=== PATIENT | male | born 1930 | race Caucasian/White ===

== ENCOUNTER 2016-07-17 | Outpatient (CLI) | payer MEDICARE, OTHER | END 2016-07-17 22:19 | disposition critical access hospital (66) | CPT/HCPCS: A0425; A0427 ==

== ENCOUNTER 2016-07-17 22:50 | Emergency (ER) | payer MEDICARE, OTHER ==
[2016-07-18] MEDS ORDERED: oxyCODONE 5 MG TABLET PO STA (03:17)
[2016-07-18] MEDS ORDERED: oxyCODONE 5 MG TABLET ONE (03:29)
[2016-07-18] MEDS ORDERED: cefTRIAXone 1 GM in SODIUM CHLORIDE 0.9% MINIBAG 100 ML IV STA (04:36)
[2016-07-18] MEDS ORDERED: cefTRIAXone 1 GM VIAL ONE (04:43)
== END 2016-07-18 05:43 | disposition home or self-care (01) ==
DX: R41.82 Altered mental status, unspecified (principal); R31.9 Hematuria, unspecified; Z93.2 Ileostomy status
CPT/HCPCS: 36415; 80053; 81001; 83605; 83690; 85025; 87086; 96374; 99284; A9270

== ENCOUNTER 2016-07-18 | Outpatient (CLI) | payer MEDICARE, OTHER | END 2016-07-18 05:49 | disposition home or self-care (01) | CPT/HCPCS: A0425; A0428 ==

== ENCOUNTER 2016-08-03 11:30 | Outpatient (CLI) | payer MEDICARE, OTHER | END 2016-08-03 11:31 | disposition home or self-care (01) | DX: N39.0 Urinary tract infection, site not specified (principal); R35.0 Frequency of micturition ==

== ENCOUNTER 2016-08-04 | Outpatient (CLI) | payer MEDICARE, OTHER | END 2016-08-04 21:06 | disposition critical access hospital (66) | CPT/HCPCS: A0425; A0429 ==

== ENCOUNTER 2016-08-04 22:06 | Inpatient (IN) | payer MEDICARE, OTHER ==
[2016-08-04] MEDS ORDERED: SODIUM CHLORIDE 0.9% 1,000 ML IV ONE (23:04)
[2016-08-05] MEDS ORDERED: LIDOCAINE 2% URO-JET 5 ML SYRINGE UR STA (00:13)
[2016-08-05] MEDS ORDERED: LIDOCAINE JELLY 2% 5 ML TUBE TOP ONE (00:31)
[2016-08-05] MEDS ORDERED: LIDOCAINE JELLY 2% 5 ML TUBE TOP STA (00:36)
[2016-08-05] MEDS ORDERED: ONDANSETRON 4 MG/2 ML VIAL IVP PRN (01:46)
[2016-08-05] MEDS ORDERED: SODIUM CHLORIDE FLUSH 0.9% 10 ML SYRINGE IVP PRN (01:46)
[2016-08-05] MEDS ORDERED: DEXTROSE GEL 37.5 GM TUBE PO PRN (02:40)
[2016-08-05] MEDS ORDERED: DEXTROSE 5% 1,000 ML IV PRN (02:40)
[2016-08-05] MEDS ORDERED: GLUCAGON 1 MG/ML VIAL SUBQ PRN (02:40)
[2016-08-05] MEDS ORDERED: DEXTROSE 50% ABBOJECT 25 GM/50 ML SYRINGE IVP PRN (02:40)
[2016-08-05] MEDS: SODIUM CHLORIDE 0.9% 1,000 ML IV SCH ×2 (03:00→14:23)
[2016-08-05] MEDS: SODIUM CHLORIDE FLUSH 0.9% 10 ML SYRINGE IVP SCH ×3 (03:00→21:13)
[2016-08-05] MEDS ORDERED: ASPIRIN EC 81 MG TABLET PO SCH (09:00)
[2016-08-05] MEDS: INSULIN ASPART 300 UNIT/3 ML PEN SUBQ SCH ×4 (09:48→20:33)
[2016-08-05] MEDS: CLOPIDOGREL 75 MG TABLET PO SCH (09:50)
[2016-08-05] MEDS: ATORVASTATIN 10 MG TABLET PO SCH (09:50)
[2016-08-05] MEDS: SACCHAROMYCES BOULARDII 250 MG CAPSULE PO SCH ×2 (09:50→17:09)
[2016-08-05] MEDS: ASPIRIN EC 81 MG TABLET PO SCH (09:50)
[2016-08-05] MEDS: AMIODARONE 200 MG TABLET PO SCH (09:51)
[2016-08-05] MEDS: FERROUS SULFATE 325 MG TABLET PO SCH ×2 (09:51→20:34)
[2016-08-05] MEDS: SODIUM BICARBONATE 650 MG TABLET PO SCH ×2 (09:51→20:34)
[2016-08-05] MEDS: METOPROLOL SUCCINATE 25 MG TABLET PO SCH (09:51)
[2016-08-05] MEDS: ALLOPURINOL 100 MG TABLET PO SCH (09:52)
[2016-08-05] MEDS: POLYETHYLENE GLYCOL 3350 17 GM PACKET PO SCH (09:53)
[2016-08-05] MEDS: LIDOCAINE PATCH 5% TOP SCH (09:53)
[2016-08-05] MEDS: NYSTATIN CREAM 15 GM TUBE TOP SCH ×2 (09:54→20:32)
[2016-08-05] MEDS: HEPARIN 5,000 UNIT/ML VIAL SUBQ SCH ×2 (09:55→20:39)
[2016-08-05] MEDS: FLUTICASONE NASAL SPRAY NAS SCH (10:06)
[2016-08-05] MEDS: HYDROcod/ACETAM 5/325 MG TABLET PO PRN (18:18)
[2016-08-06] MEDS: HYDROcod/ACETAM 5/325 MG TABLET PO PRN ×4 (00:24→19:20)
[2016-08-06] MEDS: SODIUM CHLORIDE FLUSH 0.9% 10 ML SYRINGE IVP SCH ×3 (06:19→22:22)
[2016-08-06] MEDS: INSULIN ASPART 300 UNIT/3 ML PEN SUBQ SCH ×4 (08:20→22:14)
[2016-08-06] MEDS: POLYETHYLENE GLYCOL 3350 17 GM PACKET PO SCH (09:36)
[2016-08-06] MEDS: SACCHAROMYCES BOULARDII 250 MG CAPSULE PO SCH ×2 (09:37→17:13)
[2016-08-06] MEDS: ATORVASTATIN 10 MG TABLET PO SCH (09:37)
[2016-08-06] MEDS: ASPIRIN EC 81 MG TABLET PO SCH (09:37)
[2016-08-06] MEDS: FERROUS SULFATE 325 MG TABLET PO SCH ×2 (09:38→22:16)
[2016-08-06] MEDS: AMIODARONE 200 MG TABLET PO SCH (09:38)
[2016-08-06] MEDS: SODIUM BICARBONATE 650 MG TABLET PO SCH ×2 (09:39→22:15)
[2016-08-06] MEDS: CLOPIDOGREL 75 MG TABLET PO SCH (09:39)
[2016-08-06] MEDS: METOPROLOL SUCCINATE 25 MG TABLET PO SCH (09:39)
[2016-08-06] MEDS: ALLOPURINOL 100 MG TABLET PO SCH (09:39)
[2016-08-06] MEDS: HEPARIN 5,000 UNIT/ML VIAL SUBQ SCH ×2 (09:40→22:23)
[2016-08-06] MEDS: LIDOCAINE PATCH 5% TOP SCH (10:10)
[2016-08-06] MEDS: NYSTATIN CREAM 15 GM TUBE TOP SCH ×2 (12:03→22:16)
[2016-08-06] MEDS: FLUTICASONE NASAL SPRAY NAS SCH (12:04)
[2016-08-07] MEDS: HYDROcod/ACETAM 5/325 MG TABLET PO PRN ×3 (01:40→13:32)
[2016-08-07] MEDS: SODIUM CHLORIDE FLUSH 0.9% 10 ML SYRINGE IVP SCH ×3 (01:41→21:21)
[2016-08-07] MEDS ORDERED: MAGNESIUM SULFATE 2 GRAM 50 ML IV ONE (09:00)
[2016-08-07] MEDS: INSULIN ASPART 300 UNIT/3 ML PEN SUBQ SCH ×4 (09:29→21:18)
[2016-08-07] MEDS: NYSTATIN CREAM 15 GM TUBE TOP SCH ×2 (09:30→21:16)
[2016-08-07] MEDS: LIDOCAINE PATCH 5% TOP SCH (09:31)
[2016-08-07] MEDS: FLUTICASONE NASAL SPRAY NAS SCH (09:31)
[2016-08-07] MEDS: HEPARIN 5,000 UNIT/ML VIAL SUBQ SCH ×2 (09:31→21:18)
[2016-08-07] MEDS: AMIODARONE 200 MG TABLET PO SCH (09:31)
[2016-08-07] MEDS: SACCHAROMYCES BOULARDII 250 MG CAPSULE PO SCH ×2 (09:31→18:02)
[2016-08-07] MEDS: ASPIRIN EC 81 MG TABLET PO SCH (09:32)
[2016-08-07] MEDS: METOPROLOL SUCCINATE 25 MG TABLET PO SCH (09:32)
[2016-08-07] MEDS: FERROUS SULFATE 325 MG TABLET PO SCH ×2 (09:32→21:16)
[2016-08-07] MEDS: ALLOPURINOL 100 MG TABLET PO SCH (09:32)
[2016-08-07] MEDS: CLOPIDOGREL 75 MG TABLET PO SCH (09:32)
[2016-08-07] MEDS: ATORVASTATIN 10 MG TABLET PO SCH (09:34)
[2016-08-07] MEDS: POLYETHYLENE GLYCOL 3350 17 GM PACKET PO SCH (09:34)
[2016-08-07] MEDS: SODIUM BICARBONATE 650 MG TABLET PO SCH ×2 (09:43→21:16)
[2016-08-07] MEDS: oxyCODONE 5 MG TABLET PO PRN ×2 (18:02→23:42)
[2016-08-07] MEDS: TAMSULOSIN 0.4 MG CAPSULE PO SCH (18:02)
[2016-08-08] MEDS: SODIUM CHLORIDE FLUSH 0.9% 10 ML SYRINGE IVP SCH ×3 (06:12→21:52)
[2016-08-08] MEDS: oxyCODONE 5 MG TABLET PO PRN ×2 (07:07→14:23)
[2016-08-08] MEDS ORDERED: SODIUM CHLORIDE 0.9% 500 ML IV ONE ×2 (07:48→10:00)
[2016-08-08] MEDS: INSULIN ASPART 300 UNIT/3 ML PEN SUBQ SCH ×4 (08:33→21:57)
[2016-08-08] MEDS: SACCHAROMYCES BOULARDII 250 MG CAPSULE PO SCH ×2 (08:34→18:00)
[2016-08-08] MEDS: ALLOPURINOL 100 MG TABLET PO SCH (08:34)
[2016-08-08] MEDS: ASPIRIN EC 81 MG TABLET PO SCH (08:35)
[2016-08-08] MEDS: ATORVASTATIN 10 MG TABLET PO SCH (08:35)
[2016-08-08] MEDS: AMIODARONE 200 MG TABLET PO SCH (08:35)
[2016-08-08] MEDS: levoFLOXacin 250 MG TABLET PO SCH (08:36)
[2016-08-08] MEDS: NYSTATIN CREAM 15 GM TUBE TOP SCH ×2 (08:36→21:52)
[2016-08-08] MEDS: FERROUS SULFATE 325 MG TABLET PO SCH ×2 (08:36→21:52)
[2016-08-08] MEDS: CLOPIDOGREL 75 MG TABLET PO SCH (08:36)
[2016-08-08] MEDS: FLUTICASONE NASAL SPRAY NAS SCH (08:36)
[2016-08-08] MEDS: POLYETHYLENE GLYCOL 3350 17 GM PACKET PO SCH (08:37)
[2016-08-08] MEDS: SODIUM BICARBONATE 650 MG TABLET PO SCH ×2 (08:38→21:52)
[2016-08-08] MEDS: METOPROLOL SUCCINATE 25 MG TABLET PO SCH (08:42)
[2016-08-08] MEDS: ACETAMINOPHEN 325 MG TABLET PO PRN (08:43)
[2016-08-08] MEDS: HEPARIN 5,000 UNIT/ML VIAL SUBQ SCH ×2 (08:49→21:53)
[2016-08-08] MEDS: LIDOCAINE PATCH 5% TOP SCH (09:08)
[2016-08-08] MEDS: TAMSULOSIN 0.4 MG CAPSULE PO SCH (18:00)
[2016-08-09] MEDS: guaiFENesin 600 MG TABLET PO PRN ×2 (00:08→13:31)
[2016-08-09] MEDS: oxyCODONE 5 MG TABLET PO PRN ×4 (00:08→19:16)
[2016-08-09] MEDS ORDERED: LORazepam 2 MG/ML SYRINGE IVP STA (01:13)
[2016-08-09] MEDS: SODIUM CHLORIDE FLUSH 0.9% 10 ML SYRINGE IVP SCH ×3 (01:21→20:49)
[2016-08-09] MEDS: INSULIN ASPART 300 UNIT/3 ML PEN SUBQ SCH ×4 (08:00→20:57)
[2016-08-09] MEDS ORDERED: HALOPERIDOL 5 MG/ML VIAL IM ONE (09:00)
[2016-08-09] MEDS: MORPHINE 2 MG/ML SYRINGE IVP PRN ×3 (11:17→17:55)
[2016-08-09] MEDS: ALLOPURINOL 100 MG TABLET PO SCH (13:26)
[2016-08-09] MEDS: SACCHAROMYCES BOULARDII 250 MG CAPSULE PO SCH ×2 (13:26→18:03)
[2016-08-09] MEDS: CLOPIDOGREL 75 MG TABLET PO SCH (13:28)
[2016-08-09] MEDS: ASPIRIN EC 81 MG TABLET PO SCH (13:28)
[2016-08-09] MEDS: AMIODARONE 200 MG TABLET PO SCH (13:28)
[2016-08-09] MEDS: POLYETHYLENE GLYCOL 3350 17 GM PACKET PO SCH (13:29)
[2016-08-09] MEDS: LIDOCAINE PATCH 5% TOP SCH (13:29)
[2016-08-09] MEDS: levoFLOXacin 250 MG TABLET PO SCH (13:29)
[2016-08-09] MEDS: SODIUM BICARBONATE 650 MG TABLET PO SCH ×2 (13:29→20:51)
[2016-08-09] MEDS: FERROUS SULFATE 325 MG TABLET PO SCH ×2 (13:30→20:51)
[2016-08-09] MEDS: ATORVASTATIN 40 MG TABLET PO SCH (13:31)
[2016-08-09] MEDS: FLUTICASONE NASAL SPRAY NAS SCH (13:34)
[2016-08-09] MEDS: NYSTATIN CREAM 15 GM TUBE TOP SCH ×2 (13:35→21:13)
[2016-08-09] MEDS: METOPROLOL SUCCINATE 25 MG TABLET PO SCH (13:56)
[2016-08-09] MEDS: HEPARIN 5,000 UNIT/ML VIAL SUBQ SCH ×2 (14:51→20:49)
[2016-08-09] MEDS: TAMSULOSIN 0.4 MG CAPSULE PO SCH (17:55)
[2016-08-09] MEDS: SODIUM CHLORIDE FLUSH 0.9% 10 ML SYRINGE IVP PRN (17:56)
[2016-08-09] MEDS: ACETAMINOPHEN 325 MG TABLET PO PRN (19:15)
[2016-08-10] MEDS: LORazepam 0.5 MG TABLET PO PRN ×2 (00:17→20:32)
[2016-08-10] MEDS: MORPHINE 2 MG/ML SYRINGE IVP PRN ×4 (00:17→22:23)
[2016-08-10] MEDS: SODIUM CHLORIDE FLUSH 0.9% 10 ML SYRINGE IVP SCH ×3 (04:53→21:42)
[2016-08-10] MEDS: SODIUM CHLORIDE FLUSH 0.9% 10 ML SYRINGE IVP PRN (05:36)
[2016-08-10] MEDS: INSULIN ASPART 300 UNIT/3 ML PEN SUBQ SCH ×4 (09:05→21:42)
[2016-08-10] MEDS: SACCHAROMYCES BOULARDII 250 MG CAPSULE PO SCH ×2 (09:49→17:08)
[2016-08-10] MEDS: AMIODARONE 200 MG TABLET PO SCH (09:51)
[2016-08-10] MEDS: levoFLOXacin 250 MG TABLET PO SCH (09:52)
[2016-08-10] MEDS: ATORVASTATIN 40 MG TABLET PO SCH (09:52)
[2016-08-10] MEDS: CLOPIDOGREL 75 MG TABLET PO SCH (09:52)
[2016-08-10] MEDS: SODIUM BICARBONATE 650 MG TABLET PO SCH ×2 (09:52→20:32)
[2016-08-10] MEDS: ALLOPURINOL 100 MG TABLET PO SCH (09:52)
[2016-08-10] MEDS: ASPIRIN EC 81 MG TABLET PO SCH (09:52)
[2016-08-10] MEDS: METOPROLOL SUCCINATE 25 MG TABLET PO SCH (09:53)
[2016-08-10] MEDS: FLUTICASONE NASAL SPRAY NAS SCH (10:26)
[2016-08-10] MEDS: HEPARIN 5,000 UNIT/ML VIAL SUBQ SCH ×2 (10:26→20:33)
[2016-08-10] MEDS: POLYETHYLENE GLYCOL 3350 17 GM PACKET PO SCH (10:27)
[2016-08-10] MEDS: FERROUS SULFATE 325 MG TABLET PO SCH ×2 (11:50→20:32)
[2016-08-10] MEDS: LIDOCAINE PATCH 5% TOP SCH (11:57)
[2016-08-10] MEDS: NYSTATIN CREAM 15 GM TUBE TOP SCH ×2 (11:58→20:37)
[2016-08-10] MEDS: ACETAMINOPHEN 325 MG TABLET PO PRN (15:50)
[2016-08-10] MEDS: oxyCODONE 5 MG TABLET PO PRN (15:51)
[2016-08-10] MEDS: TAMSULOSIN 0.4 MG CAPSULE PO SCH (17:08)
[2016-08-11] MEDS: oxyCODONE 5 MG TABLET PO PRN ×4 (04:29→18:28)
[2016-08-11] MEDS: SODIUM CHLORIDE FLUSH 0.9% 10 ML SYRINGE IVP PRN ×2 (06:44→16:57)
[2016-08-11] MEDS: SODIUM CHLORIDE FLUSH 0.9% 10 ML SYRINGE IVP SCH ×3 (06:44→23:28)
[2016-08-11] MEDS: SACCHAROMYCES BOULARDII 250 MG CAPSULE PO SCH ×2 (09:28→16:58)
[2016-08-11] MEDS: ATORVASTATIN 40 MG TABLET PO SCH (09:28)
[2016-08-11] MEDS: ALLOPURINOL 100 MG TABLET PO SCH (09:28)
[2016-08-11] MEDS: FERROUS SULFATE 325 MG TABLET PO SCH ×2 (09:28→21:06)
[2016-08-11] MEDS: CLOPIDOGREL 75 MG TABLET PO SCH (09:28)
[2016-08-11] MEDS: levoFLOXacin 250 MG TABLET PO SCH (09:29)
[2016-08-11] MEDS: ASPIRIN EC 81 MG TABLET PO SCH (09:29)
[2016-08-11] MEDS: AMIODARONE 200 MG TABLET PO SCH (09:29)
[2016-08-11] MEDS: METOPROLOL SUCCINATE 25 MG TABLET PO SCH (09:29)
[2016-08-11] MEDS: INSULIN ASPART 300 UNIT/3 ML PEN SUBQ SCH ×4 (09:29→21:04)
[2016-08-11] MEDS: SODIUM BICARBONATE 650 MG TABLET PO SCH ×2 (09:29→21:06)
[2016-08-11] MEDS: LIDOCAINE PATCH 5% TOP SCH (09:30)
[2016-08-11] MEDS: POLYETHYLENE GLYCOL 3350 17 GM PACKET PO SCH (09:31)
[2016-08-11] MEDS: HEPARIN 5,000 UNIT/ML VIAL SUBQ SCH ×2 (09:41→21:05)
[2016-08-11] MEDS: FLUTICASONE NASAL SPRAY NAS SCH (09:41)
[2016-08-11] MEDS: NYSTATIN CREAM 15 GM TUBE TOP SCH ×2 (10:11→23:28)
[2016-08-11] MEDS: MORPHINE 2 MG/ML SYRINGE IVP PRN ×2 (12:09→23:39)
[2016-08-11] MEDS ORDERED: cefTRIAXone 500 MG VIAL IVP STA (16:26)
[2016-08-11] MEDS: SODIUM CHLORIDE 0.9% 1,000 ML IV SCH (16:57)
[2016-08-11] MEDS: cefTRIAXone 1 GM in SODIUM CHLORIDE 0.9% MINIBAG 100 ML IV SCH (16:57)
[2016-08-11] MEDS: TAMSULOSIN 0.4 MG CAPSULE PO SCH (16:58)
[2016-08-11] MEDS ORDERED: VANCOMYCIN PER PHARMACY 1 GM in SODIUM CHLORIDE 0.9% 250 ML IV SCH (17:00)
[2016-08-11] MEDS: VANCOMYCIN INJ 2 GM in SODIUM CHLORIDE 0.9% 500 ML IV SCH (18:29)
[2016-08-11] MEDS: LORazepam 0.5 MG TABLET PO PRN (19:44)
[2016-08-12] MEDS: MORPHINE 2 MG/ML SYRINGE IVP PRN ×3 (04:41→11:59)
[2016-08-12] MEDS: SODIUM CHLORIDE FLUSH 0.9% 10 ML SYRINGE IVP PRN (06:08)
[2016-08-12] MEDS: SODIUM CHLORIDE 0.9% 1,000 ML IV SCH ×2 (06:08→22:56)
[2016-08-12] MEDS: SODIUM CHLORIDE FLUSH 0.9% 10 ML SYRINGE IVP SCH ×3 (06:08→21:04)
[2016-08-12] MEDS: ASPIRIN EC 81 MG TABLET PO SCH (07:49)
[2016-08-12] MEDS: AMIODARONE 200 MG TABLET PO SCH (07:49)
[2016-08-12] MEDS: FERROUS SULFATE 325 MG TABLET PO SCH ×2 (07:49→21:03)
[2016-08-12] MEDS: POLYETHYLENE GLYCOL 3350 17 GM PACKET PO SCH (07:49)
[2016-08-12] MEDS: SODIUM BICARBONATE 650 MG TABLET PO SCH ×2 (07:49→21:03)
[2016-08-12] MEDS: ATORVASTATIN 40 MG TABLET PO SCH (07:49)
[2016-08-12] MEDS: ALLOPURINOL 100 MG TABLET PO SCH (07:50)
[2016-08-12] MEDS: CLOPIDOGREL 75 MG TABLET PO SCH (07:50)
[2016-08-12] MEDS: LIDOCAINE PATCH 5% TOP SCH (07:51)
[2016-08-12] MEDS: HEPARIN 5,000 UNIT/ML VIAL SUBQ SCH ×2 (07:51→21:06)
[2016-08-12] MEDS: METOPROLOL SUCCINATE 25 MG TABLET PO SCH (07:51)
[2016-08-12] MEDS: cefTRIAXone 1 GM in SODIUM CHLORIDE 0.9% MINIBAG 100 ML IV SCH (07:52)
[2016-08-12] MEDS: NYSTATIN CREAM 15 GM TUBE TOP SCH ×2 (07:52→21:06)
[2016-08-12] MEDS: SACCHAROMYCES BOULARDII 250 MG CAPSULE PO SCH ×2 (07:59→17:04)
[2016-08-12] MEDS: INSULIN ASPART 300 UNIT/3 ML PEN SUBQ SCH ×4 (08:19→21:04)
[2016-08-12] MEDS: FLUTICASONE NASAL SPRAY NAS SCH (08:22)
[2016-08-12] MEDS: guaiFENesin 600 MG TABLET PO PRN (12:38)
[2016-08-12] MEDS: SILVER SULFADIAZINE CREAM 25 GM TUBE TOP SCH (14:49)
[2016-08-12] MEDS: TAMSULOSIN 0.4 MG CAPSULE PO SCH (17:04)
[2016-08-12] MEDS: VANCOMYCIN INJ 2 GM in SODIUM CHLORIDE 0.9% 500 ML IV SCH (18:03)
[2016-08-13] MEDS: oxyCODONE 5 MG TABLET PO PRN ×3 (00:01→20:20)
[2016-08-13] MEDS: LORazepam 0.5 MG TABLET PO PRN (03:41)
[2016-08-13] MEDS: SODIUM CHLORIDE FLUSH 0.9% 10 ML SYRINGE IVP PRN ×2 (06:47→17:56)
[2016-08-13] MEDS: SODIUM CHLORIDE FLUSH 0.9% 10 ML SYRINGE IVP SCH ×4 (08:34→17:56)
[2016-08-13] MEDS: INSULIN ASPART 300 UNIT/3 ML PEN SUBQ SCH ×4 (08:34→21:08)
[2016-08-13] MEDS: AMIODARONE 200 MG TABLET PO SCH (08:55)
[2016-08-13] MEDS: cefTRIAXone 1 GM in SODIUM CHLORIDE 0.9% MINIBAG 100 ML IV SCH (08:55)
[2016-08-13] MEDS: HEPARIN 5,000 UNIT/ML VIAL SUBQ SCH ×2 (08:55→21:02)
[2016-08-13] MEDS: METOPROLOL SUCCINATE 25 MG TABLET PO SCH (08:55)
[2016-08-13] MEDS: POLYETHYLENE GLYCOL 3350 17 GM PACKET PO SCH (08:55)
[2016-08-13] MEDS: FERROUS SULFATE 325 MG TABLET PO SCH ×2 (08:55→21:02)
[2016-08-13] MEDS: SACCHAROMYCES BOULARDII 250 MG CAPSULE PO SCH ×2 (08:56→17:55)
[2016-08-13] MEDS: ALLOPURINOL 100 MG TABLET PO SCH ×2 (08:56→09:13)
[2016-08-13] MEDS: SODIUM BICARBONATE 650 MG TABLET PO SCH ×2 (08:56→21:02)
[2016-08-13] MEDS: CLOPIDOGREL 75 MG TABLET PO SCH (08:56)
[2016-08-13] MEDS: ASPIRIN EC 81 MG TABLET PO SCH (08:56)
[2016-08-13] MEDS: ATORVASTATIN 40 MG TABLET PO SCH (08:56)
[2016-08-13] MEDS: LIDOCAINE PATCH 5% TOP SCH (09:04)
[2016-08-13] MEDS: FLUTICASONE NASAL SPRAY NAS SCH (09:04)
[2016-08-13] MEDS: SODIUM CHLORIDE 0.9% 1,000 ML IV SCH ×2 (10:53→22:56)
[2016-08-13] MEDS: SILVER SULFADIAZINE CREAM 25 GM TUBE TOP SCH ×2 (10:53→22:55)
[2016-08-13] MEDS: NYSTATIN CREAM 15 GM TUBE TOP SCH ×2 (10:55→22:56)
[2016-08-13] MEDS ORDERED: SODIUM BICARBONATE 100 MEQ in DEXTROSE 5% 1,000 ML IV SCH (15:30)
[2016-08-13] MEDS: guaiFENesin 600 MG TABLET PO PRN (15:59)
[2016-08-13] MEDS: MORPHINE 2 MG/ML SYRINGE IVP PRN (17:56)
[2016-08-13] MEDS: TAMSULOSIN 0.4 MG CAPSULE PO SCH (17:56)
[2016-08-13] MEDS: MAGNESIUM OXIDE 400 MG TABLET PO SCH (17:56)
[2016-08-14] MEDS: LORazepam 0.5 MG TABLET PO PRN (03:07)
[2016-08-14] MEDS: SILVER SULFADIAZINE CREAM 25 GM TUBE TOP SCH (08:28)
[2016-08-14] MEDS: cefTRIAXone 1 GM in SODIUM CHLORIDE 0.9% MINIBAG 100 ML IV SCH (08:28)
[2016-08-14] MEDS: POLYETHYLENE GLYCOL 3350 17 GM PACKET PO SCH (08:28)
[2016-08-14] MEDS: FLUTICASONE NASAL SPRAY NAS SCH (08:28)
[2016-08-14] MEDS: FERROUS SULFATE 325 MG TABLET PO SCH (08:29)
[2016-08-14] MEDS: LIDOCAINE PATCH 5% TOP SCH (08:29)
[2016-08-14] MEDS: ALLOPURINOL 100 MG TABLET PO SCH (08:29)
[2016-08-14] MEDS: MAGNESIUM OXIDE 400 MG TABLET PO SCH (08:29)
[2016-08-14] MEDS: AMIODARONE 200 MG TABLET PO SCH (08:30)
[2016-08-14] MEDS: ATORVASTATIN 40 MG TABLET PO SCH (08:30)
[2016-08-14] MEDS: SACCHAROMYCES BOULARDII 250 MG CAPSULE PO SCH (08:30)
[2016-08-14] MEDS: SODIUM BICARBONATE 650 MG TABLET PO SCH (08:30)
[2016-08-14] MEDS: ASPIRIN EC 81 MG TABLET PO SCH (08:30)
[2016-08-14] MEDS: HEPARIN 5,000 UNIT/ML VIAL SUBQ SCH (08:30)
[2016-08-14] MEDS: CLOPIDOGREL 75 MG TABLET PO SCH (08:30)
[2016-08-14] MEDS: METOPROLOL SUCCINATE 25 MG TABLET PO SCH (08:30)
[2016-08-14] MEDS ORDERED: VANCOMYCIN INJ 2 GM in SODIUM CHLORIDE 0.9% 500 ML IV SCH (18:00)
== END 2016-08-14 11:20 | disposition home health service (06) | DRG 689 ==
PROC: 02HV33Z Insertion of Infusion Device into Superior Vena Cava, Percutaneous Approach (ICD-10-PCS; principal; 2016-08-09)
PROC: 30233N1 Transfusion of Nonautologous Red Blood Cells into Peripheral Vein, Percutaneous Approach (ICD-10-PCS; 2016-08-14)
DX: N39.0 Urinary tract infection, site not specified (principal); S41.132A Puncture wound without foreign body of left upper arm, initial encounter; B37.41 Candidal cystitis and urethritis; G93.41 Metabolic encephalopathy; S00.432A Contusion of left ear, initial encounter; L89.623 Pressure ulcer of left heel, stage 3; M86.672 Other chronic osteomyelitis, left ankle and foot; L97.221 Non-pressure chronic ulcer of left calf limited to breakdown of skin; L97.829 Non-pressure chronic ulcer of other part of left lower leg with unspecified severity; N18.4 Chronic kidney disease, stage 4 (severe); I69.354 Hemiplegia and hemiparesis following cerebral infarction affecting left non-dominant side; K50.00 Crohn's disease of small intestine without complications; E87.2 Acidosis; Z68.41 Body mass index [BMI] 40.0-44.9, adult; D63.8 Anemia in other chronic diseases classified elsewhere; D50.0 Iron deficiency anemia secondary to blood loss (chronic); R31.9 Hematuria, unspecified; E83.52 Hypercalcemia; I73.9 Peripheral vascular disease, unspecified; E11.40 Type 2 diabetes mellitus with diabetic neuropathy, unspecified; E11.69 Type 2 diabetes mellitus with other specified complication; E11.622 Type 2 diabetes mellitus with other skin ulcer; E11.22 Type 2 diabetes mellitus with diabetic chronic kidney disease; E66.9 Obesity, unspecified; N40.1 Benign prostatic hyperplasia with lower urinary tract symptoms; R33.8 Other retention of urine; I48.2 Chronic atrial fibrillation; S61.532A Puncture wound without foreign body of left wrist, initial encounter; S80.02XA Contusion of left knee, initial encounter; S80.01XA Contusion of right knee, initial encounter; W06.XXXA Fall from bed, initial encounter; Y92.003 Bedroom of unspecified non-institutional (private) residence as the place of occurrence of the external cause; I25.10 Atherosclerotic heart disease of native coronary artery without angina pectoris; I69.311 Memory deficit following cerebral infarction; I69.328 Other speech and language deficits following cerebral infarction; I25.2 Old myocardial infarction; Z78.1 Physical restraint status; Z93.2 Ileostomy status; Z79.02 Long term (current) use of antithrombotics/antiplatelets; Z95.828 Presence of other vascular implants and grafts; Z87.442 Personal history of urinary calculi; Z74.01 Bed confinement status

== ENCOUNTER 2016-08-14 | Outpatient (CLI) | payer MEDICARE, OTHER | END 2016-08-14 11:20 | disposition home or self-care (01) | CPT/HCPCS: A0425; A0428 ==

== ENCOUNTER 2016-10-04 15:29 | Outpatient (CLI) | payer MEDICARE, OTHER | END 2016-10-04 15:30 | disposition critical access hospital (66) | DX: R39.89 Other symptoms and signs involving the genitourinary system (principal) | CPT/HCPCS: A0425; A0429 ==

== ENCOUNTER 2016-10-04 16:07 | Emergency (ER) | payer MEDICARE, OTHER ==
[2016-10-04] MEDS ORDERED: cefTRIAXone 1 GM VIAL IM STA (18:47)
[2016-10-04] MEDS ORDERED: cefTRIAXone 1 GM VIAL ONE (19:01)
[2016-10-04] MEDS ORDERED: LIDOCAINE 1% 2 ML VIAL ONE (19:01)
== END 2016-10-04 21:17 | disposition home or self-care (01) ==
DX: N30.00 Acute cystitis without hematuria (principal); I10 Essential (primary) hypertension; E78.00 Pure hypercholesterolemia, unspecified; I25.2 Old myocardial infarction; Z86.73 Personal history of transient ischemic attack (TIA), and cerebral infarction without residual deficits; K50.90 Crohn's disease, unspecified, without complications; I25.10 Atherosclerotic heart disease of native coronary artery without angina pectoris; Z95.1 Presence of aortocoronary bypass graft; Z79.82 Long term (current) use of aspirin; Z87.891 Personal history of nicotine dependence

== ENCOUNTER 2016-10-04 21:17 | Outpatient (CLI) | payer MEDICARE, OTHER | END 2016-10-04 21:18 | disposition home or self-care (01) | DX: Z74.01 Bed confinement status (principal) | CPT/HCPCS: A0425; A0428 ==

== ENCOUNTER 2016-10-15 13:00 | Outpatient (CLI) | payer MEDICARE, OTHER | END 2016-10-15 13:01 | disposition home or self-care (01) | DX: N39.0 Urinary tract infection, site not specified (principal) ==

== ENCOUNTER 2016-10-29 12:04 | Outpatient (CLI) | payer MEDICARE, OTHER | END 2016-10-29 12:05 | disposition critical access hospital (66) | DX: R53.83 Other fatigue (principal); R03.1 Nonspecific low blood-pressure reading | CPT/HCPCS: A0425; A0429 ==

== ENCOUNTER 2016-10-29 12:44 | Inpatient (IN) | payer MEDICARE, OTHER ==
[2016-10-29] MEDS ORDERED: SODIUM CHLORIDE 0.9% 1,000 ML IV ONE ×2 (12:58)
--- NOTE | 2016-10-29 13:01 | ED Physician Documentation ---
History of Present Illness - Stated complaint Stated Complaint: ALOC - Chief complaint Chief Complaint: General - History obtained from History obtained from: Patient, EMS - History of Present Illness Timing: Other - Additonal information Additional information: 85-year-old gentleman who presents from home where he has in-home caregivers and wound care for evaluation of low blood pressure and cloudy urine. He is a poor historian, and for long-term events the little confused today. Reportedly had low blood pressure although I don't see the actual number at home. En route it was normal. Also has had cloudy urine. He has indwelling Ariza catheter. There is no report of fever. He has a past history of chronic kidney disease, CVA with left-sided hemiparesis, type II diabetes, Crohn's disease with an ileostomy. Review of Systems Unable to obtain: Confused PD PAST MEDICAL HISTORY - Past Medical History Cardiovascular: Hypertension, High cholesterol, NC Neuro: CVA GI: Crohn's disease - Past Surgical History Past Surgical History: Yes General: Bowel surgery Cardiovascular: CABG - Present Medications Home Medications: Ambulatory Orders Medication Instructions Recorded Confirmed Allopurinol 50 mg PO DAILY 08/04/16 10/29/16 Amiodarone [Pacerone] 200 mg PO DAILY 08/04/16 10/29/16 Clopidogrel [Plavix] 75 mg PO DAILY 08/04/16 10/29/16 Atorvastatin Calcium [Lipitor] 80 mg PO QPM 08/06/16 10/29/16 Gabapentin [Neurontin] 100 mg PO TID 08/06/16 10/29/16 Magnesium Oxide [Mag Ox] 400 mg PO DAILYWM #30 tablet 08/13/16 10/29/16 Accuflora 0 mg PO DAILY 10/04/16 10/04/16 Aspirin [Adult Low Dose Aspirin EC] 81 mg PO DAILY 10/04/16 10/29/16 Cholecalciferol [Vitamin D3] 2,000 units PO DAILY 10/04/16 10/29/16 Mecobalamin [B-12] 0 mg PO DAILY 10/04/16 10/04/16 Oxybutynin [Ditropan] 5 mg PO DAILY 10/04/16 10/29/16 Amoxicillin 500 mg PO 10/29/16 Collagenase Clostridium Hist. 0 BID 10/29/16 [Santyl] Ferrous Gluconate 324 mg PO BID 10/29/16 10/29/16 Levofloxacin [Levaquin] 500 mg PO DAILY 10/29/16 10/29/16 Potassium Citrate [Potassium 6 tab PO DAILY 10/29/16 10/29/16 Citrate ER] Tamsulosin HCl [Flomax] 1 tab ORAL DAILY 10/29/16 10/29/16 guaiFENesin [Mucinex] 600 mg PO BID 10/29/16 10/29/16 - Allergies Allergies/Adverse Reactions: Allergies Allergy/AdvReac Type Severity Reaction Status Date / Time No Known Drug Allergies Allergy Verified 10/04/16 16:23 - Social History Does the pt smoke?: No Smoking Status: Former smoker PD ED PE NORMAL - Vitals Vital signs reviewed: Yes - General General: Other (Alert, oriented to person, knows he is in the hospital but not why, unaware of the date, says he is 84 years old.) - HEENT HEENT: PERRL, EOMI, Other (tachy mucous membranes) - Neck Neck: Supple, no meningeal sign - Cardiac Cardiac: RRR, No murmur - Respiratory Respiratory: Other (Rhonchi L base) - Abdomen Abdomen: Soft, Non tender, Other (ileostomy RLQ) - Derm Derm: Normal color, Warm and dry - Extremities Extremities: No edema, No calf tenderness / cord, Other (Bandaged wounds on the legs, and ulcer on the lateral left heel without signs of active infection.) - Neuro Neuro: nematologist 2-12 intact, Normal speech - Psych Psych: Normal mood, Normal affect Results - Vitals Vitals: Vital Signs - 24 hr 10/29/16 12:53 Temperature 36.3 C L Heart Rate 81 Respiratory 18 Rate Blood Pressure 129/52 L O2 Saturation 97 Oxygen O2 Source [Without Activity] Room air O2 Source Room air - Labs Labs: Laboratory Tests 10/29/16 10/29/16 10/29/16 12:50 14:12 14:12 WBC 13.7 H RBC 3.23 L Hgb 10.2 L Hct 31.1 L MCV 96.3 H MCH 31.6 H MCHC 32.8 RDW 16.0 H Plt Count 323 MPV 7.1 L Neut # 11.6 H Lymph # 0.7 L Bowman # 1.1 H Eos # 0.1 Baso # 0.1 Absolute Nucleated RBC 0.01 Nucleated RBCs 0.0 Sodium 137 Potassium 4.1 Chloride 110 Carbon Dioxide 17 L Anion Gap 10.0 BUN 37 H Creatinine 1.7 H Estimated GFR (MDRD) 38 L Glucose 128 H Lactic Acid Calcium 11.2 H Total Bilirubin 0.4 AST 16 ALT 12 Alkaline Phosphatase 83 Total Protein 6.6 L Albumin 2.8 L Globulin 3.8 Albumin/Globulin Ratio 0.7 L Lipase 14 L Urine Color YELLOW Urine Clarity CLOUDY Urine pH 5.5 Ur Specific Willards 1.025 Urine Protein 30 H Urine Glucose (UA) NEGATIVE Urine Ketones NEGATIVE Urine Occult Blood LARGE H Urine Nitrite NEGATIVE Urine Bilirubin NEGATIVE Urine Urobilinogen 0.2 (NORMAL) Ur Leukocyte Esterase LARGE H Urine RBC 6-10 H Urine WBC >25 H Ur Squamous Epith Cells RARE Squamous Urine Crystals 3-5 Calcium Oxalate Urine Bacteria Few Urine Yeast PRESENT Ur Microscopic Review INDICATED Urine Culture Comments INDICATED 10/29/16 14:12 WBC RBC Hgb Hct MCV MCH MCHC RDW Plt Count MPV Neut # Lymph # Bowman # Eos # Baso # Absolute Nucleated RBC Nucleated RBCs Sodium Potassium Chloride Carbon Dioxide Anion Gap BUN Creatinine Estimated GFR (MDRD) Glucose Lactic Acid 1.0 Calcium Total Bilirubin AST ALT Alkaline Phosphatase Total Protein Albumin Globulin Albumin/Globulin Ratio Lipase Urine Color Urine Clarity Urine pH Ur Specific Willards Urine Protein Urine Glucose (UA) Urine Ketones Urine Occult Blood Urine Nitrite Urine Bilirubin Urine Urobilinogen Ur Leukocyte Esterase Urine RBC Urine WBC Ur Squamous Epith Cells Urine Crystals Urine Bacteria Urine Yeast Ur Microscopic Review Urine Culture Comments - Rads (name of study) 1v chest Radiology: EMP read contemporaneously (A small right pleural effusion with bibasilar airspace disease and cardiomegaly) PD MEDICAL DECISION MAKING - ED course ED course: 85-year-old gentleman presents with possible UTI versus colonization but also has new pneumonia with pleural effusion. Blood cultures and blood were obtained and he will be admitted for further evaluation and treatment with IV antibiotics. Departure - Departure Disposition: 66 [facility] DC/Xfer Clinical Impression: Urinary tract infection Qualifiers: Urinary tract infection type: catheter-associated UTI Indwelling urinary catheter type: indwelling urethral catheter Encounter type: initial encounter Qualified Code(s): T83.511A - Infection and inflammatory reaction due to indwelling urethral catheter, initial encounter Pneumonia Qualifiers: Pneumonia type: due to unspecified organism Laterality: bilateral Lung location : lower lobe of lung Qualified Code(s): J18.9 - Pneumonia, unspecified organism Condition: Serious Discharge Date/Time: 10/29/16 15:47
--- NOTE | 2016-10-29 13:44 | XRAY Preliminary Report ---
Exam: XR Chest 1 View IMPRESSION: 1. Small right pleural effusion with bibasilar airspace disease consistent with atelectasis or pneumo eusebia. 2. Cardiomegaly. [facility] SITE ID: [id number]
--- NOTE | 2016-10-29 13:47 | XRAY Report ---
EXAM: CHEST RADIOGRAPHY EXAM DATE: 10/29/2016 01:24 PM. CLINICAL HISTORY: Rhonchorous. COMPARISON: Chest x-ray 08/09/2016. TECHNIQUE: 1 view. FINDINGS: Lungs/Pleura: Small right pleural effusion with minimal bibasilar airspace disease. Mediastinum: Mild cardiomegaly with aortic tortuosity and atherosclerotic calcification. Other: Status post median sternotomy and left shoulder replacement. IMPRESSION: 1. Small right pleural effusion with bibasilar airspace disease consistent with atelectasis or pneumo eusebia. 2. Cardiomegaly. [facility] Referring Provider Line: [phone] SITE ID: [id number]
[2016-10-29 13:51] LABS: BILIRUBIN,URINE NEGATIVE (NEGATIVE); PH,URINE 5.5 PH (5.0-7.5)
[2016-10-29 14:02] LABS: UA w/ MICROSCOPIC CHARGE YES
[2016-10-29 14:03] LABS: UR CULTURE IF IND INDICATED; WBC,URINE >25 /HPF (0-3)
[2016-10-29] MEDS ORDERED: cefTRIAXone 500 MG VIAL IVP STA (14:09)
[2016-10-29] MEDS ORDERED: AZITHROMYCIN INJ 500 MG in SODIUM CHLORIDE 0.9% 250 ML IV STA (14:09)
[2016-10-29 14:19] LABS: BASOPHILS # (AUTO) 0.1 10^3/uL (0.0-0.1); BASOPHILS % (AUTO) 0.8 %; EOSINOPHILS # (AUTO) 0.1 10^3/uL (0.0-0.7); EOSINOPHILS % (AUTO) 0.6 %; HCT - HEMATOCRIT 31.1 % (42.0-52.0); HGB - HEMOGLOBIN 10.2 g/dL (14.0-18.0); LYMPHOCYTES # (AUTO) 0.7 10^3/uL (1.5-3.5); LYMPHOCYTES % (AUTO) 5.4 %; MEAN CORPUSCULAR HEMOGLOBIN 31.6 pg (27.0-31.0); MEAN CORPUSCULAR HGB CONC 32.8 g/dL (32.0-36.0); MEAN CORPUSCULAR VOLUME 96.3 fL (80.0-94.0); MEAN PLATELET VOLUME 7.1 fL (7.4-11.4); MONOCYTES # (AUTO) 1.1 10^3/uL (0.0-1.0); MONOCYTES % (AUTO) 8.1 %; NEUTROPHILS # (AUTO) 11.6 10^3/uL (1.5-6.6); NEUTROPHILS % (AUTO) 85.1 %; RED BLOOD COUNT 3.23 10^6/uL (4.70-6.10); UNCORRECTED WHITE BLOOD COUNT 13.7 x10^3/uL; WHITE BLOOD COUNT 13.7 x10^3/uL (4.8-10.8)
[2016-10-29 14:42] LABS: ALBUMIN/GLOBULIN RATIO 0.7 (1.0-2.2); BILIRUBIN,TOTAL 0.4 mg/dL (0.2-1.0); CALCIUM 11.2 mg/dL (8.5-10.3); CREATININE 1.7 mg/dL (0.6-1.2); POTASSIUM 4.1 mmol/L (3.5-5.0); TOTAL PROTEIN 6.6 g/dL (6.7-8.2)
[2016-10-29] MEDS ORDERED: SODIUM CHLORIDE FLUSH 0.9% 10 ML SYRINGE IVP PRN (14:48)
[2016-10-29] MEDS ORDERED: cefTRIAXone 1 GM VIAL ONE (15:00)
[2016-10-29] MEDS ORDERED: ZINC OXIDE 20% OINT 28.35 GM TUBE TOP PRN (16:05)
[2016-10-29] MEDS: INSULIN ASPART 300 UNIT/3 ML PEN SUBQ SCH ×2 (17:35→21:08)
[2016-10-29 18:02] LABS: HEMOGLOBIN A1C 0.47 g/dL
[2016-10-29] MEDS: HYDROcod/ACETAM 5/325 MG TABLET PO PRN (19:04)
--- NOTE | 2016-10-29 20:01 | HISTORY & PHYSICAL EXAMINATION ---
DATE OF ADMISSION: 10/29/2016 CHIEF COMPLAINT: Altered mental status. HISTORY OF PRESENT ILLNESS: This is an 85-year-old male, who was brought in today by his Home Health aides. He has a chronic indwelling Ariza catheter and, when they came in to visit him today, it was n oted that his urine was very cloudy and that the patient had altered mental status. The patient has s ome confusion at baseline, but he was much worse than usual. The patient does live at home with Home Health aids. The patient is currently A and O x2-lisa, and his information is not entirely reliable. T he patient's Home Health aids were there today to check on his foot ulcers; however, that was not the ir concern. Patient does have a chronic indwelling catheter, and it was due to be changed today, and it was changed in the ER. Patient is unable to provide any other additional information, other than t hat he is not sure why he is here. PAST MEDICAL HISTORY Past medical history is as follows: 1. Chronic indwelling Ariza catheter. 2. Frequent UTIs. 3. CKD stage 4. 4. Decubitus ulcer on his left heel, stage III. 5. Diabetes type 2 on insulin. 6. History of stroke with residual deficit. 7. Hypercalcemia. 8. Peripheral vascular complications. MEDICATIONS Medications at time of admission are as follows: 1. Ferrous gluconate. 2. Vitamin D3. 3. Lipitor. 4. Allopurinol. 5. Levofloxacin. 6. Plavix. 7. Aspirin. 8. Oxybutynin. 9. Flomax. 10. Magnesium oxide. 11. Amiodarone. 12. Potassium citrate. 13. Mucinex. 14. Gabapentin. 15. Santyl. ALLERGIES: NO KNOWN DRUG ALLERGIES. SOCIAL HISTORY: Denies tobacco, alcohol, or recreational drugs. FAMILY HISTORY: Unable reviewed with the patient, and not listed in chart, but is noncontributory. REVIEW OF SYSTEMS GENERAL: Denies fevers, chills, or weight loss. SKIN: Denies rashes, itching, or dryness, but does have foot wounds. HEENT: Denies headache, change in vision, or difficulty swallowing; does have runny nose. NECK: Denies swollen lumps, pain, or stiffness. CARDIOVASCULAR: Denies chest pain, back pain, or radiating arm or neck pain. RESPIRATORY: Denies cough, wheezing, or shortness of breath. GASTROINTESTINAL: Denies nausea, vomiting, diarrhea, or constipation. GENITOURINARY: He has cloudy urine per report. Patient does have chronic indwelling catheter. MUSCULOSKELETAL: He has foot ulcers bilaterally. NEUROLOGIC: Denies dizziness, fainting, or seizures. HEMATOLOGICAL: Denies easy bruising. PSYCHIATRIC: Denies depression or nervousness. LABORATORY Values are as follows: White blood cell count is 13.7, hemoglobin and hematocrit of 10.2 and 31.1, wi th a platelet count of 323. Chemistry as follows: Sodium is 137, potassium is 4.1, chloride is 102, CO2 is 27, BUN and creatinine are 37 and 1.7 with a glucose of 128, lactic acid is 1, calcium is 11.2. ALT and AST are 12 and 16 w ith an alkaline phosphatase of 83, albumin is 3.8, and lipase is 14. Urinalysis: He has 30 protein, large occult blood, large leukocyte esterase, greater than 25 WBCs; it has been sent for culture. IMAGING CHEST X-RAY 1. Chest x-ray demonstrated small right pleural effusion with bibasilar airspace disease, consistent with atelectasis or pneumonia. 2. Cardiomegaly. VITAL SIGNS Vital signs at time of examination are as follows: Blood pressure is 117/51, heart rate 73, respirato ry rate is 18, and he is saturating 97% on room air with a temperature of 36.3 degrees. PHYSICAL EXAMINATION GENERAL APPEARANCE: This is a well-nourished, well-developed, age-appropriate male. HEENT: He is normocephalic, atraumatic. Extraocular eye movements are intact. CHEST: Clear to auscultation without wheezes, rhonchi, or rale bilaterally. CARDIAC: He has a regular rate and rhythm without murmur, rub, or gallop. ABDOMEN: Soft, nontender, nondistended. EXTREMITIES: Bilateral calves without tenderness or edema. NEUROLOGICAL: He is awake and alert and very pleasantly conversant. ASSESSMENT AND PLAN 1. Urinary tract infection. Patient will be placed on ceftriaxone pending the culture and sensitiviti es. He had his Ariza changed in the ER, and it will be monitored carefully. 2. Possible pneumonia. The x-ray indicated that he had atelectasis versus pneumonia, given his mental status change. He will be placed on azithromycin. First dose was given in the emergency room, and he will get the remaining 4 doses. 3. Hypothyroidism. Patient will continue his home medication. 4. Chronic kidney disease. His medications will be adjusted as needed. 5. Foot ulcers. Wounds will be dressed and monitored. 6. Diabetes. Patient has been placed on insulin sliding scale. 7. Atrial fibrillation. Patient will continue his Plavix. He will also continue his other cardiac med ications. 8. Deep venous thrombosis prophylaxis. Because patient is on Plavix, he will not be given any additio nal prophylaxis. 9. Urinary retention. Patient will continue his Ditropan. JOB #: [id number] EXT JOB #:[id number]
[2016-10-29] MEDS: ATORVASTATIN 40 MG TABLET PO SCH (21:07)
[2016-10-29] MEDS: GABAPENTIN 100 MG CAPSULE PO SCH (21:08)
[2016-10-29] MEDS: guaiFENesin 600 MG TABLET PO SCH (21:08)
[2016-10-29] MEDS: SODIUM CHLORIDE FLUSH 0.9% 10 ML SYRINGE IVP SCH (21:08)
[2016-10-30] MEDS: SODIUM CHLORIDE FLUSH 0.9% 10 ML SYRINGE IVP SCH ×3 (07:26→21:52)
[2016-10-30] MEDS: GABAPENTIN 100 MG CAPSULE PO SCH ×3 (07:26→21:49)
[2016-10-30] MEDS ORDERED: cefTRIAXone 1 GM in SODIUM CHLORIDE 0.9% MINIBAG 100 ML IV SCH (09:00)
[2016-10-30] MEDS: OXYBUTYNIN 5MG TABLET PO SCH (09:03)
[2016-10-30] MEDS: guaiFENesin 600 MG TABLET PO SCH ×2 (09:03→21:50)
[2016-10-30] MEDS: ALLOPURINOL 100 MG TABLET PO SCH (09:03)
[2016-10-30] MEDS: ASPIRIN EC 81 MG TABLET PO SCH (09:03)
[2016-10-30] MEDS: TAMSULOSIN 0.4 MG CAPSULE PO SCH (09:03)
[2016-10-30] MEDS: FERROUS GLUCONATE 324 MG TABLET PO SCH ×2 (09:03→17:09)
[2016-10-30] MEDS: CHOLECALCIFEROL 1,000 UNIT TABLET PO SCH (09:03)
[2016-10-30] MEDS: INSULIN ASPART 300 UNIT/3 ML PEN SUBQ SCH ×4 (09:04→21:51)
[2016-10-30] MEDS: POLYETHYLENE GLYCOL 3350 17 GM PACKET PO SCH (09:04)
[2016-10-30] MEDS: CLOPIDOGREL 75 MG TABLET PO SCH (09:04)
[2016-10-30] MEDS: MAGNESIUM OXIDE 400 MG TABLET PO SCH (09:04)
[2016-10-30] MEDS: AMIODARONE 200 MG TABLET PO SCH (09:06)
[2016-10-30] MEDS: AZITHROMYCIN INJ 250 MG in SODIUM CHLORIDE 0.9% 250 ML IV SCH (11:28)
[2016-10-30] MEDS ORDERED: POTASSIUM CITRATE 5 MEQ TABLET PO SCH (12:00)
[2016-10-30] MEDS ORDERED: MIN OIL/DIMETHICON/COCONUT OIL 92 GM TUBE TOP PRN (13:42)
--- NOTE | 2016-10-30 13:56 | PROVIDER PROGRESS NOTE ---
Subjective - Prog Note Date Prog Note Date: 10/30/16 Prog Note Time: 13:14 - Subjective Pt reports feeling: Improved (I have a urinary infection I was confused, but I dont think it was bad insists we stop looking at the L elbow exposed hardware/ "its been like that for years, stop focusing on it". Denies pain Has been managing his ostomy since age 39 (Crohns)) Current Medications - Current Medications Current Medications: Active Medications Generic Name Dose Route Start Last Admin Trade Name Freq PRN Reason Stop Dose Admin Acetaminophen/Hydrocodone Bitart 1 tab 10/29/16 18:42 10/29/16 19:04 Randolph 5/325 PO 1 tab Q4HR PRN Administration PAIN Allopurinol 50 mg 10/30/16 09:00 10/30/16 09:03 Zyloprim PO 50 mg DAILY KEIKO Administration Amiodarone HCl 200 mg 10/30/16 09:00 10/30/16 09:06 Pacerone PO 200 mg DAILY KEIKO Administration Aspirin 81 mg 10/30/16 09:00 10/30/16 09:03 Ecotrin PO 81 mg DAILY KEIKO Administration Atorvastatin Calcium 80 mg 10/29/16 21:00 10/29/16 21:07 Lipitor PO 80 mg QPM KEIKO Administration Cholecalciferol 2,000 unit 10/30/16 09:00 10/30/16 09:03 Vitamin D3 PO 2,000 unit DAILY KEIKO Administration Clopidogrel Bisulfate 75 mg 10/30/16 09:00 10/30/16 09:04 Plavix PO 75 mg DAILY KEIKO Administration Ferrous Gluconate 324 mg 10/30/16 08:00 10/30/16 09:03 Fergon PO 324 mg BIDWM KEIKO Administration Gabapentin 100 mg 10/29/16 22:00 10/30/16 07:26 Neurontin PO 100 mg TID KEIKO Administration Guaifenesin 600 mg 10/29/16 21:00 10/30/16 09:03 Mucinex PO 600 mg BID KEIKO Administration Ceftriaxone Sodium 1 gm/ 100 mls @ 200 mls/hr 10/30/16 09:00 10/30/16 08:57 Sodium Chloride IV 200 mls/hr DAILY KEIKO Administration Azithromycin 250 mg/ Sodium 250 mls @ 83.33 mls/hr 10/30/16 09:00 10/30/16 11: 28 Chloride IV 11/02/16 11:59 83.33 mls/hr DAILY KEIKO Administration Insulin Aspart 1 - 5 unit 10/29/16 17:00 10/30/16 11:30 Novolog SUBQ Not Given 0800,1200,1700,2100 [facility] Protocol Magnesium Oxide 400 mg 10/30/16 08:00 10/30/16 09:04 Mag Ox PO 400 mg DAILYWM KEIKO Administration Multi-Ingredient Ointment 1 applic 10/29/16 16:05 10/29/16 21:23 Zinc Oxide TOP 1 applic PRN PRN Administration Skin Care Oxybutynin Chloride 5 mg 10/30/16 09:00 10/30/16 09:03 Ditropan PO 5 mg DAILY KEIKO Administration Polyethylene Glycol 17 gm 10/30/16 09:00 10/30/16 09:04 Miralax PO 17 gm DAILY [facility] Administration Potassium Citrate 30 meq 10/30/16 12:00 Urocit-K PO DAILYWM [facility] Sodium Chloride 10 ml 10/29/16 14:48 Normal Saline Flush 0.9% IVP PRN PRN NEEDED PER PROVIDER ORDERS Sodium Chloride 10 ml 10/29/16 22:00 10/30/16 09:05 Normal Saline Flush 0.9% IVP 10 ml Q8HR [facility] Administration Tamsulosin HCl 0.4 mg 10/30/16 09:00 10/30/16 09:03 Flomax PO 0.4 mg DAILY KEIKO Administration Allopurinol 300 mg PO DAILY 08/04/16 Amiodarone [Pacerone] 200 mg PO DAILY 08/04/16 Clopidogrel [Plavix] 75 mg PO DAILY 08/04/16 Atorvastatin Calcium [Lipitor] 80 mg PO QPM 08/06/16 Gabapentin [Neurontin] 100 mg PO TID 08/06/16 Aspirin [Adult Low Dose Aspirin EC] 81 mg PO DAILY 10/04/16 Cholecalciferol [Vitamin D3] 2,000 units PO DAILY 10/04/16 Oxybutynin [Ditropan] 5 mg PO BID 10/04/16 Collagenase Clostridium Hist. [Santyl] 1 applic TOP DAILY 10/29/16 Ferrous Gluconate 324 mg PO BID 10/29/16 Levofloxacin [Levaquin] 500 mg PO DAILY 10/29/16 Tamsulosin HCl [Flomax] 1 tab ORAL DAILY 10/29/16 guaiFENesin [Mucinex] 600 mg PO BID 10/29/16 Fluconazole [Fluconazole] 200 mg PO DAILY 10/30/16 Nystatin [Nyamyc] 1 applic TOP BID PRN 10/30/16 Objective - Vital Signs/Intake & Output Reviewed Vital Signs: Yes Vital Signs: Vital Signs x48h Temp Pulse Resp BP Pulse Ox 10/30/16 12:14 36.4 C L 71 19 150/71 H 98 10/30/16 09:03 36.4 C L 65 17 164/65 H 100 Intake & Output: Intake & Output 10/27/16 10/28/16 10/29/16 10/30/16 23:59 23:59 23:59 23:59 Intake Total 2122 460 Output Total 250 160 Balance 1872 300 - Objective General Appearance: positive: Other (seen early in day eating breakfast, later when Madyson RN /wound care in to assess alert, oriented, trump/ obama, year correct, very animated and quite emphatic in discussing the exposed hardware of his left elbow which has been evidently exposed for years and he is frustrated by the attention given it.) Eyes Bilateral: positive: PERRL, EOMI Respiratory: positive: Other (unlabored respirations on RA, no cough, clear to auscultation other than slight sonoursous sounds L base vs coarse crackle) Cardiovascular: positive: Regular rate & rhythm (rate sounds regular currently on ausculttion (hx afib)) Abdomen: positive: Nml bowel sounds, Other (Right lower quadrant ileostomy draining brownish liquid stool). negative: Non-tender Skin: positive: Warm, Dry Extremities: positive: Other (Right upper arm (? midline) catheter Air booties on both heels, R heel with small ~ 1.5 cm shallow ulcer,no surrounding erythema , L heel with ~ 1 inch loose (edges lifting) black eschar. NO LE edema Left elbow with exposed hard bautista (looks like flat bracket w/ heads of pins. NO tenderness, surrounding erythema nor flucutance) Neurologic/Psychiatric: positive: Oriented x3, Other (appropriate, but sometimes in conversation has memory lapse, generally appropriate Left sided weakness , slight contracture L hand) - Lab Results Fish Bones: 10/31/16 06:40 10/31/16 06:40 Assessment/Plan - Problem List (1) Confusion Impression: UTI suspected on admit: urine culture no growth Treated as well for possible pneumonia with ceftriaxone/azithro Heel wounds do not look infected, No change in ostomy output Seems to be at baseline mentation will recheck labs in am, talk w/providers Wilmer return home with his home care early tomorrow 10/31 once recheck WBC and if mentation clears Will continue azithro , but stop ceftriaxone 2) Possible early RLL pneumonia no 02 requirement, no cough, no tachypneia, no chest pain will continue azitrho,but stop ceftriaxone. Admited late 10/29 pm. 3) Leukocytosis; no clearly localizing source of infection; as above may be early pneumonia with urine negative and heel wounds w/o evident celluliits 3) UTI: urine culture negative, NO UTI, catheter was changed on admit continuje oxybutynin, and flomax (? if has been on oxybutynin since before Ariza; PT to follow up w/ PCP if can d/c oxybutynin, if not for spasm. Sounds like Ariza was placed for Urine retention several mos ago. 4) Hx TIA ; continue Plavix, ASA, statin residual 5) CKD 4; stable
[2016-10-30] MEDS: HYDROcod/ACETAM 5/325 MG TABLET PO PRN ×2 (14:05→19:03)
[2016-10-30] MEDS: ATORVASTATIN 40 MG TABLET PO SCH (21:49)
[2016-10-31] MEDS ORDERED: HALOPERIDOL 5 MG/ML VIAL IM STA (02:11)
[2016-10-31] MEDS: SODIUM CHLORIDE FLUSH 0.9% 10 ML SYRINGE IVP SCH ×3 (06:10→21:17)
[2016-10-31] MEDS: GABAPENTIN 100 MG CAPSULE PO SCH ×3 (06:10→21:17)
[2016-10-31 06:50] LABS: BASOPHILS # (AUTO) 0.1 10^3/uL (0.0-0.1); BASOPHILS % (AUTO) 0.9 %; EOSINOPHILS # (AUTO) 0.1 10^3/uL (0.0-0.7); EOSINOPHILS % (AUTO) 1.1 %; HCT - HEMATOCRIT 32.6 % (42.0-52.0); HGB - HEMOGLOBIN 10.5 g/dL (14.0-18.0); LYMPHOCYTES # (AUTO) 0.5 10^3/uL (1.5-3.5); LYMPHOCYTES % (AUTO) 5.5 %; MEAN CORPUSCULAR HEMOGLOBIN 31.4 pg (27.0-31.0); MEAN CORPUSCULAR HGB CONC 32.2 g/dL (32.0-36.0); MEAN CORPUSCULAR VOLUME 97.4 fL (80.0-94.0); MEAN PLATELET VOLUME 7.3 fL (7.4-11.4); MONOCYTES # (AUTO) 0.9 10^3/uL (0.0-1.0); MONOCYTES % (AUTO) 9.8 %; NEUTROPHILS # (AUTO) 7.8 10^3/uL (1.5-6.6); NEUTROPHILS % (AUTO) 82.7 %; NUCLEATED RED BLOOD CELLS AUTO 0.1 /100WBC; RED BLOOD COUNT 3.35 10^6/uL (4.70-6.10); RED CELL DISTRIBUTION WIDTH 15.6 % (12.0-15.0); UNCORRECTED WHITE BLOOD COUNT 9.5 x10^3/uL; WHITE BLOOD COUNT 9.5 x10^3/uL (4.8-10.8)
[2016-10-31 06:55] LABS: CALCIUM 11.2 mg/dL (8.5-10.3); CREATININE 1.6 mg/dL (0.6-1.2); POTASSIUM 4.1 mmol/L (3.5-5.0)
[2016-10-31] MEDS: TAMSULOSIN 0.4 MG CAPSULE PO SCH (08:43)
[2016-10-31] MEDS: CHOLECALCIFEROL 1,000 UNIT TABLET PO SCH (08:43)
[2016-10-31] MEDS: ASPIRIN EC 81 MG TABLET PO SCH (08:43)
[2016-10-31] MEDS: FERROUS GLUCONATE 324 MG TABLET PO SCH ×2 (08:43→16:00)
[2016-10-31] MEDS: CLOPIDOGREL 75 MG TABLET PO SCH (08:43)
[2016-10-31] MEDS: MAGNESIUM OXIDE 400 MG TABLET PO SCH (08:43)
[2016-10-31] MEDS: OXYBUTYNIN 5MG TABLET PO SCH (08:43)
[2016-10-31] MEDS: guaiFENesin 600 MG TABLET PO SCH ×2 (08:43→21:17)
[2016-10-31] MEDS: ALLOPURINOL 100 MG TABLET PO SCH (08:43)
[2016-10-31] MEDS: AMIODARONE 200 MG TABLET PO SCH (08:44)
[2016-10-31] MEDS: POLYETHYLENE GLYCOL 3350 17 GM PACKET PO SCH (08:44)
[2016-10-31] MEDS: INSULIN ASPART 300 UNIT/3 ML PEN SUBQ SCH ×4 (08:44→21:17)
[2016-10-31] MEDS: AZITHROMYCIN INJ 250 MG in SODIUM CHLORIDE 0.9% 250 ML IV SCH ×2 (10:17→14:50)
[2016-10-31] MEDS: HYDROcod/ACETAM 5/325 MG TABLET PO PRN ×2 (10:17→18:42)
[2016-10-31] MEDS ORDERED: SODIUM CHLORIDE 0.9% 1,000 ML IV SCH (12:00)
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
[2016-10-31] MEDS: ATORVASTATIN 40 MG TABLET PO SCH (21:17)
[2016-10-31] MEDS: SODIUM CHLORIDE 0.9% 1,000 ML IV SCH (22:47)
[2016-11-01] MEDS: SODIUM CHLORIDE FLUSH 0.9% 10 ML SYRINGE IVP SCH ×2 (05:58→17:01)
[2016-11-01] MEDS: GABAPENTIN 100 MG CAPSULE PO SCH ×2 (05:58→13:26)
[2016-11-01 06:06] LABS: HCT - HEMATOCRIT 30.3 % (42.0-52.0); HGB - HEMOGLOBIN 9.8 g/dL (14.0-18.0); MEAN CORPUSCULAR HEMOGLOBIN 31.6 pg (27.0-31.0); MEAN CORPUSCULAR HGB CONC 32.2 g/dL (32.0-36.0); MEAN CORPUSCULAR VOLUME 97.9 fL (80.0-94.0); MEAN PLATELET VOLUME 7.4 fL (7.4-11.4); RED BLOOD COUNT 3.09 10^6/uL (4.70-6.10); RED CELL DISTRIBUTION WIDTH 16.2 % (12.0-15.0); WHITE BLOOD COUNT 6.7 x10^3/uL (4.8-10.8)
[2016-11-01 06:15] LABS: CREATININE 1.5 mg/dL (0.6-1.2)
[2016-11-01 07:41] LABS: CALCIUM 10.9 mg/dL (8.5-10.3); MAGNESIUM 1.9 mg/dL (1.7-2.8); PHOSPHORUS 3.2 mg/dL (2.5-4.6)
[2016-11-01] MEDS: INSULIN ASPART 300 UNIT/3 ML PEN SUBQ SCH ×3 (08:07→17:01)
[2016-11-01] MEDS: SODIUM CHLORIDE 0.9% 1,000 ML IV SCH (08:18)
[2016-11-01] MEDS: AZITHROMYCIN INJ 250 MG in SODIUM CHLORIDE 0.9% 250 ML IV SCH (08:19)
[2016-11-01] MEDS: FERROUS GLUCONATE 324 MG TABLET PO SCH ×2 (08:21→17:01)
[2016-11-01] MEDS: CLOPIDOGREL 75 MG TABLET PO SCH (08:21)
[2016-11-01] MEDS: TAMSULOSIN 0.4 MG CAPSULE PO SCH (08:22)
[2016-11-01] MEDS: ASPIRIN EC 81 MG TABLET PO SCH (08:22)
[2016-11-01] MEDS: ALLOPURINOL 100 MG TABLET PO SCH (08:22)
[2016-11-01] MEDS: AMIODARONE 200 MG TABLET PO SCH (08:22)
[2016-11-01] MEDS: CHOLECALCIFEROL 1,000 UNIT TABLET PO SCH (08:23)
[2016-11-01] MEDS: MAGNESIUM OXIDE 400 MG TABLET PO SCH (08:23)
[2016-11-01] MEDS: guaiFENesin 600 MG TABLET PO SCH (08:23)
[2016-11-01] MEDS: POLYETHYLENE GLYCOL 3350 17 GM PACKET PO SCH (08:24)
[2016-11-01] MEDS: HYDROcod/ACETAM 5/325 MG TABLET PO PRN (09:14)
[2016-11-01 09:41] LABS: BILIRUBIN,URINE NEGATIVE (NEGATIVE)
[2016-11-01] MEDS ORDERED: FLUCONAZOLE 100 MG TABLET PO ONE (10:00)
--- NOTE | 2016-11-01 16:02 | Discharge Plan ---
Discharge Plan Disposition: Home, Self Care Condition: Stable Prescriptions: Azithromycin 250 mg PO DAILY #3 tablet Diet: Regular Activity Restrictions: Activity as Tolerated Shower Restrictions: Yes (assisted hygeine) Driving Restrictions: Yes (doesnt drive) Additional Instructions or Follow Up instructions: 1) You came to the hospital due to confusion and cloudy urine with concern for urinary tract infection Bladder catheter was changed. Urine culture actually NO bacterial growth. + yeast (but that is usually just treated with catheter change) An early pneumonia (see #2) may have contributed to the confusion After speaking with your urologist we did give you ONE dose of fluconazole, but it looks like the confusion was also related to "volume depletion" dehydration. You were back at your baseline after more IV fluid Drink liquids with each meal and an additional at least 3 full glasses of water (or other liquid between meals and at bed) Your calcium was a little elevated (11.2) but improved with fluid a little. It is likley partly elevated due to being bed bound A PTH level was 5 (PCP could follow up on this) Elevated White blood cell count on admission was better by 5/3 On chest X ray , you may have a very early right lower lobe pneumonia. You have no oxygen need. You have some loose upper airway congestion sometimes, no sputum production You will complete 2 more doses of azihromycin at home. (prescription) PCP : consider recheck cXR 4-6 weeks make sure R base infilrate resolved (and small effusion) (bibasilar atelectasis noted as well (deflated airways) You also have mildly deflated airways in the bases. 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 Neither appears infected No change in your home medications EXCEPT we stopped the ditropan. You have not had bladder spasm, and that "class" of medicine can cause confusion in older people. We are continuing the flomax No Smoking: If you smoke, Please STOP! Call for help. Follow-up with: Neptali Cavazos MD [Primary Care Provider] - 1 Week
[2016-11-01 16:09] VITALS: BP 132/72
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
== END 2016-11-01 18:00 | disposition home or self-care (01) | DRG 194 ==
LOC: EDUNIT# → ED 12:44 → MS 14:48 → INTOOBSV 14:48 → OBSVTOIN 19:04 → MS 10-31 09:50 → UNDODISIN 11-01 18:00
PROVIDERS: ADMIT Physician Assistant Medical; ATTEND Nurse Practitioner
DX: J18.9 Pneumonia, unspecified organism (principal); R41.0 Disorientation, unspecified; D72.829 Elevated white blood cell count, unspecified; I12.9 Hypertensive chronic kidney disease with stage 1 through stage 4 chronic kidney disease, or unspecified chronic kidney disease; I69.354 Hemiplegia and hemiparesis following cerebral infarction affecting left non-dominant side; K50.00 Crohn's disease of small intestine without complications; E11.22 Type 2 diabetes mellitus with diabetic chronic kidney disease; L89.623 Pressure ulcer of left heel, stage 3; E11.621 Type 2 diabetes mellitus with foot ulcer; L97.419 Non-pressure chronic ulcer of right heel and midfoot with unspecified severity; N18.4 Chronic kidney disease, stage 4 (severe); E03.9 Hypothyroidism, unspecified; I48.91 Unspecified atrial fibrillation; R33.9 Retention of urine, unspecified; I25.2 Old myocardial infarction; B37.49 Other urogenital candidiasis; Z95.1 Presence of aortocoronary bypass graft; Z93.2 Ileostomy status; L97.421 Non-pressure chronic ulcer of left heel and midfoot limited to breakdown of skin; L97.411 Non-pressure chronic ulcer of right heel and midfoot limited to breakdown of skin; Z87.891 Personal history of nicotine dependence; Z79.4 Long term (current) use of insulin; E86.0 Dehydration; E83.52 Hypercalcemia; E66.9 Obesity, unspecified; Z96.0 Presence of urogenital implants; Z68.28 Body mass index [BMI] 28.0-28.9, adult; Z74.01 Bed confinement status; Z79.82 Long term (current) use of aspirin; Z79.02 Long term (current) use of antithrombotics/antiplatelets; Z93.3 Colostomy status; Z86.73 Personal history of transient ischemic attack (TIA), and cerebral infarction without residual deficits
CPT/HCPCS: 36415; 51702; 71010; 80048; 80053; 81001; 81003; 82310; 82397; 83036; 83605; 83690; 83735; 83970; 84100; 85025; 87040; 87086; 96361; 96365; 96366; 96367; 99284; 99285

== ENCOUNTER 2016-11-01 18:44 | Outpatient (CLI) | payer MEDICARE, OTHER | END 2016-11-01 18:45 | disposition home or self-care (01) | DX: J18.9 Pneumonia, unspecified organism (principal) | CPT/HCPCS: A0425; A0428 ==

== ENCOUNTER 2016-12-04 22:38 | Outpatient (CLI) | payer MEDICARE, OTHER | END 2016-12-04 22:39 | disposition critical access hospital (66) | LOC: EMS 22:38 | PROVIDERS: ATTEND Surgery | DX: R10.9 Unspecified abdominal pain (principal) | CPT/HCPCS: A0425; A0429 ==

== ENCOUNTER 2016-12-04 23:18 | Emergency (ER) | payer MEDICARE, OTHER ==
[2016-12-04] MEDS ORDERED: MAGNESIUM CITRATE 296 ML BOTTLE PO STA (23:38)
[2016-12-04] MEDS ORDERED: MAGNESIUM CITRATE 296 ML BOTTLE ONE (23:41)
--- NOTE | 2016-12-05 02:43 | ED Physician Documentation ---
PD HPI ABD PAIN - Stated complaint Stated Complaint: INTEST BLOCKAGE - Chief complaint Chief Complaint: Abd Pain - History obtained from History obtained from: Patient, EMS - History of Present Illness Timing - onset: Today Timing - details: Gradual onset, Still present Quality: Indigestion Location: LLQ Worsened by: Eating Associated symptoms: No: Fever, Nausea, Vomiting, Hematemesis, Diarrhea, Dysuria , Hematuria Similar symptoms before: Work up / diagnostics, Treatment Recently seen: Not recently seen - Additional information Additional information: Patient is a 86 year old male with a history of ileostomy who is coming to the emergency department for obstruction. patient states that he thinks he can feel where the blockage is and he wants a liquid stronger than mag citrate. Review of Systems Constitutional: denies: Fever, Chills Eyes: denies: Photophobia Ears: denies: Ear pain Nose: denies: Congestion Cardiac: denies: Chest pain / pressure Respiratory: denies: Cough, Wheezing GI: reports: Abdominal Pain. denies: Nausea, Vomiting, Constipation : denies: Dysuria, Frequency, Hesitancy Skin: denies: Rash, Lesions Musculoskeletal: denies: Neck pain, Back pain Neurologic: denies: Generalized weakness, Focal weakness, Numbness Immunocompromised: denies: Immunocompromised PD PAST MEDICAL HISTORY - Past Medical History Past Medical History: Yes Cardiovascular: Hypertension, High cholesterol, [place] Neuro: CVA GI: Crohn's disease : Indwelling catheter - Past Surgical History Past Surgical History: Yes General: Bowel surgery, Other Cardiovascular: CABG - Present Medications Home Medications: Ambulatory Orders Medication Instructions Recorded Confirmed Allopurinol 300 mg PO DAILY 08/04/16 10/30/16 Amiodarone [Pacerone] 200 mg PO DAILY 08/04/16 10/29/16 Clopidogrel [Plavix] 75 mg PO DAILY 08/04/16 10/29/16 Atorvastatin Calcium [Lipitor] 80 mg PO QPM 08/06/16 10/29/16 Gabapentin [Neurontin] 100 mg PO TID 08/06/16 10/29/16 Magnesium Oxide [Mag Ox] 400 mg PO DAILYWM #30 tablet 08/13/16 10/29/16 Aspirin [Adult Low Dose Aspirin EC] 81 mg PO DAILY 10/04/16 10/29/16 Cholecalciferol [Vitamin D3] 2,000 units PO DAILY 10/04/16 10/29/16 Collagenase Clostridium Hist. 1 applic TOP DAILY 10/29/16 10/30/16 [Santyl] Ferrous Gluconate 324 mg PO BID 10/29/16 10/29/16 Tamsulosin HCl [Flomax] 1 tab ORAL DAILY 10/29/16 10/29/16 guaiFENesin [Mucinex] 600 mg PO BID 10/29/16 10/29/16 Nystatin [Nyamyc] 1 applic TOP BID PRN 10/30/16 10/30/16 Azithromycin 250 mg PO DAILY #3 tablet 11/01/16 - Allergies Allergies/Adverse Reactions: Allergies Allergy/AdvReac Type Severity Reaction Status Date / Time No Known Drug Allergies Allergy Verified 10/04/16 16:23 - Social History Does the pt smoke?: No Smoking Status: Former smoker Does the pt drink ETOH?: No Does the pt have substance abuse?: No - POLST Patient has POLST: Yes PD ED PE NORMAL - Vitals Vital signs reviewed: Yes - General General: Alert and oriented X 3, No acute distress - HEENT HEENT: Atraumatic, PERRL - Neck Neck: Supple, no meningeal sign - Cardiac Cardiac: RRR - Respiratory Respiratory: No respiratory distress, Clear bilaterally - Abdomen Abdomen: Soft - Derm Derm: Normal color, Warm and dry - Neuro Neuro: Alert and oriented X 3, Normal speech PD ED PE EXPANDED - Abdomen Abdomen: Other (osteomy in place with stool in osteomy bag) Results - Vitals Vitals: Vital Signs - 24 hr 12/04/16 12/05/16 23:25 03:06 Temperature 36.2 C L 36.6 C Heart Rate 79 68 Respiratory 18 18 Rate Blood Pressure 143/68 H 125/55 L O2 Saturation 99 96 Oxygen O2 Source [Without Activity] Room air O2 Source Room air PD MEDICAL DECISION MAKING - ED course Complexity details: reviewed old records, reviewed results, re-evaluated patient , considered differential, d/w patient ED course: Patient was seen and examined at bedside. patient stated that he did not want an x-ray. there was stool in the colostomy bag, and it had also been recently drained so obstruction was less likely. Patient was treated with mag citrate and observed in the emergency department. Patient had passage of stool and fluid into the osteomy bag. patient stated he was feeling better and ready to go. Patient required no further work up and was stable for discharge with outpatient follow up. Departure - Departure Disposition: 01 Home, Self Care Clinical Impression: Constipation Instructions: ED Constipation Follow-Up: Neptali Cavazos MD [Primary Care Provider] - Tomorrow Comments: Your symptoms have seemed to be resolved. You should continue with your bowel management. You should follow up with your pmd tomorrow. You should try to increase you water intake. You can return to the emergency department at any time for new, worsening or uncontrollable symptoms. Discharge Date/Time: 12/05/16 03:33
[2016-12-05 03:07] VITALS: BP 125/55
== END 2016-12-05 03:33 | disposition home or self-care (01) ==
LOC: EDUNIT# → ED 23:18
DX: K59.00 Constipation, unspecified (principal); Z93.2 Ileostomy status; I10 Essential (primary) hypertension; K50.90 Crohn's disease, unspecified, without complications; Z79.82 Long term (current) use of aspirin; Z87.891 Personal history of nicotine dependence
CPT/HCPCS: 99283; A9270

== ENCOUNTER 2016-12-05 03:40 | Outpatient (CLI) | payer MEDICARE, OTHER | END 2016-12-05 03:41 | disposition home or self-care (01) | LOC: EMS 03:40 | PROVIDERS: ATTEND Surgery | DX: G81.91 Hemiplegia, unspecified affecting right dominant side (principal) | CPT/HCPCS: A0425; A0428 ==

== ENCOUNTER 2016-12-26 08:00 | Outpatient (CLI) | payer MEDICARE, OTHER ==
[2016-12-26 18:26] LABS: BILIRUBIN,URINE NEGATIVE (NEGATIVE); PH,URINE 5.5 PH (5.0-7.5)
[2016-12-26 18:30] LABS: UA w/ MICROSCOPIC CHARGE YES
[2016-12-26 18:40] LABS: UR CULTURE IF IND INDICATED; WBC,URINE >25 /HPF (0-3)
== END 2016-12-26 08:01 | disposition home or self-care (01) ==
LOC: LAB.F 08:00
PROVIDERS: ATTEND Internal Medicine
DX: R39.9 Unspecified symptoms and signs involving the genitourinary system (principal)
CPT/HCPCS: 81001; 81003; 87077; 87086

== ENCOUNTER 2017-01-11 13:21 | Outpatient (CLI) | payer MEDICARE, OTHER | END 2017-01-11 13:22 | disposition critical access hospital (66) | LOC: EMS 13:21 | PROVIDERS: ATTEND Surgery | DX: R55 Syncope and collapse (principal); R03.1 Nonspecific low blood-pressure reading | CPT/HCPCS: A0425; A0429 ==

== ENCOUNTER 2017-01-11 13:58 | Emergency (ER) | payer MEDICARE, OTHER ==
--- NOTE | 2017-01-11 14:02 | ED Physician Documentation ---
PD HPI SYNCOPE - Stated complaint Stated Complaint: NEAR SYNCOPE - History obtained from History obtained from: Patient, EMS - History of Present Illness Witnessed: Witnessed (he was at PT getting fitted for a different type of wheelchair that provides for him to be standing, and had a stabilizing support at upper abd/lower chest. He says it felt like it was putting a lot of pressure on his upper abd and then he felt lightheaded and nearly fainted. BP dropped to 70 systolic and improved to 90 systolic within couple of minutes once flat. He is feeling okay arriving here in ED just a few minutes later. 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 He had felt okay earlier in the day and feels okay now.) Timing - onset: How many minutes ago (15-20, just in PT department) Duration: Seconds Preceding symptoms: Abdominal pain (pressure feeling from brace being against his chest/upper abd.), Light headed. No: Headache, Chest pain, Diaphoresis, Nausea / vomiting Associated symptoms: No: Headache, Chest pain, Nausea / vomiting Contributing factors: Noxious stimulae. No: Recent med change Injury occurred: No: Fell, Head injury, Neck injury Similar symptoms before: Has not had sx before Recently seen: Not recently seen Review of Systems Constitutional: denies: Fever, Chills Eyes: denies: Loss of vision Nose: denies: Rhinorrhea / runny nose, Congestion Throat: denies: Sore throat Cardiac: denies: Chest pain / pressure Respiratory: denies: Cough GI: denies: Vomiting, Diarrhea, Bloody / black stool : denies: Dysuria, Frequency Skin: denies: Lesions Musculoskeletal: denies: Neck pain Neurologic: denies: Focal weakness (no new areas, he says his baseline weaknesses (left arm, both legs) are still present.) PD PAST MEDICAL HISTORY - Past Medical History Cardiovascular: Hypertension, High cholesterol, [place] Neuro: CVA GI: Crohn's disease : Indwelling catheter - Past Surgical History Past Surgical History: Yes General: Bowel surgery, Other Cardiovascular: CABG - Present Medications Home Medications: Ambulatory Orders Medication Instructions Recorded Confirmed Allopurinol 300 mg PO DAILY 08/04/16 10/30/16 Amiodarone [Pacerone] 200 mg PO DAILY 08/04/16 10/29/16 Clopidogrel [Plavix] 75 mg PO DAILY 08/04/16 10/29/16 Atorvastatin Calcium [Lipitor] 80 mg PO QPM 08/06/16 10/29/16 Gabapentin [Neurontin] 100 mg PO TID 08/06/16 10/29/16 Magnesium Oxide [Mag Ox] 400 mg PO DAILYWM #30 tablet 08/13/16 10/29/16 Aspirin [Adult Low Dose Aspirin EC] 81 mg PO DAILY 10/04/16 10/29/16 Cholecalciferol [Vitamin D3] 2,000 units PO DAILY 10/04/16 10/29/16 Collagenase Clostridium Hist. 1 applic TOP DAILY 10/29/16 10/30/16 [Santyl] Ferrous Gluconate 324 mg PO BID 10/29/16 10/29/16 Tamsulosin HCl [Flomax] 1 tab ORAL DAILY 10/29/16 10/29/16 guaiFENesin [Mucinex] 600 mg PO BID 10/29/16 10/29/16 Nystatin [Nyamyc] 1 applic TOP BID PRN 10/30/16 10/30/16 Azithromycin 250 mg PO DAILY #3 tablet 11/01/16 Fluconazole [Diflucan] 150 mg PO ONCE #1 tablet 01/11/17 - Allergies Allergies/Adverse Reactions: Allergies Allergy/AdvReac Type Severity Reaction Status Date / Time No Known Drug Allergies Allergy Verified 10/04/16 16:23 - Social History Does the pt smoke?: No Smoking Status: Former smoker Does the pt drink ETOH?: No Does the pt have substance abuse?: No - POLST Patient has POLST: Yes PD ED PE NORMAL - Vitals Vital signs reviewed: Yes - General General: Alert and oriented X 3, No acute distress, Well developed/nourished - HEENT HEENT: Atraumatic, Pharynx benign - Neck Neck: Supple, no meningeal sign, No adenopathy - Cardiac Cardiac: RRR, No murmur - Respiratory Respiratory: Clear bilaterally - Abdomen Abdomen: Normal bowel sounds, Soft, Non tender - Male Male : Other (pimentel in place, draining cloudy urine output. Meatus of penis appears normal. ) - Derm Derm: Normal color, Warm and dry, No rash - Extremities Extremities: Other (weakness left arm and both legs. Right arm is good. No edema , calf tenderness, noted rash. 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 No: ST elevation c/w ischemia, ST depression Compare to prior EKG: Unchanged from prior EKG (Aug 2016) - Labs Labs: Laboratory Tests 01/11/17 01/11/17 01/11/17 15:15 15:15 15:58 WBC 14.9 H RBC 3.81 L Hgb 12.3 L Hct 37.9 L MCV 99.3 H MCH 32.4 H MCHC 32.6 RDW 15.6 H Plt Count 274 MPV 7.1 L Neut # 13.1 H Lymph # 0.7 L [place] # 0.6 Eos # 0.3 Baso # 0.1 Absolute Nucleated RBC 0.00 Nucleated RBCs 0.0 Sodium 138 Potassium 4.5 Chloride 105 Carbon Dioxide 24 Anion Gap 9.0 BUN 38 H Creatinine 2.0 H Estimated GFR (MDRD) 32 L Glucose 179 H Calcium 10.7 H Magnesium 1.8 Total Bilirubin 0.4 AST 16 ALT 12 Alkaline Phosphatase 100 Total Protein 7.9 Albumin 3.7 Globulin 4.2 Albumin/Globulin Ratio 0.9 L Lipase 19 L Urine Color YELLOW Urine Clarity CLOUDY Urine pH 5.5 Ur Specific [place] 1.025 Urine Protein 30 H Urine Glucose (UA) NEGATIVE Urine Ketones NEGATIVE Urine Occult Blood LARGE H Urine Nitrite NEGATIVE Urine Bilirubin NEGATIVE Urine Urobilinogen 0.2 (NORMAL) Ur Leukocyte Esterase LARGE H Urine RBC 6-10 H Urine WBC >25 H Urine WBC Clumps PRESENT Ur Squamous Epith Cells NONE SEEN Urine Bacteria None Seen Urine Yeast PRESENT Ur Microscopic Review INDICATED Urine Culture Comments INDICATED PD MEDICAL DECISION MAKING - ED course Complexity details: reviewed results, considered differential (likely drop in BP from positioning and also the pressure/stimulus to the upper abd/chest. He seems okay here (he says he feels like normal self). ), d/w patient Departure - Departure Disposition: 01 Home, Self Care Clinical Impression: Transient hypotension, Near syncope, Yeast cystitis Condition: Stable Record reviewed to determine appropriate education?: Yes Prescriptions: Fluconazole [Diflucan] 150 mg PO ONCE #1 tablet Comments: Usual medications. Take a Fluconazole in 3 days for yeast cystitis. We will see what comes out of the urine culture in the next 2-3 days. Discharge Date/Time: 01/11/17 18:10
[2017-01-11 15:28] LABS: BASOPHILS # (AUTO) 0.1 10^3/uL (0.0-0.1); BASOPHILS % (AUTO) 0.5 %; EOSINOPHILS # (AUTO) 0.3 10^3/uL (0.0-0.7); EOSINOPHILS % (AUTO) 1.8 %; HCT - HEMATOCRIT 37.9 % (42.0-52.0); HGB - HEMOGLOBIN 12.3 g/dL (14.0-18.0); LYMPHOCYTES # (AUTO) 0.7 10^3/uL (1.5-3.5); MEAN CORPUSCULAR HEMOGLOBIN 32.4 pg (27.0-31.0); MEAN CORPUSCULAR HGB CONC 32.6 g/dL (32.0-36.0); MEAN CORPUSCULAR VOLUME 99.3 fL (80.0-94.0); MEAN PLATELET VOLUME 7.1 fL (7.4-11.4); MONOCYTES # (AUTO) 0.6 10^3/uL (0.0-1.0); MONOCYTES % (AUTO) 4.2 %; NEUTROPHILS # (AUTO) 13.1 10^3/uL (1.5-6.6); NEUTROPHILS % (AUTO) 88.5 %; RED BLOOD COUNT 3.81 10^6/uL (4.70-6.10); RED CELL DISTRIBUTION WIDTH 15.6 % (12.0-15.0); UNCORRECTED WHITE BLOOD COUNT 14.9 x10^3/uL; WHITE BLOOD COUNT 14.9 x10^3/uL (4.8-10.8)
[2017-01-11 15:38] LABS: ALBUMIN/GLOBULIN RATIO 0.9 (1.0-2.2); BILIRUBIN,TOTAL 0.4 mg/dL (0.2-1.0); CALCIUM 10.7 mg/dL (8.5-10.3); MAGNESIUM 1.8 mg/dL (1.7-2.8); POTASSIUM 4.5 mmol/L (3.5-5.0); TOTAL PROTEIN 7.9 g/dL (6.7-8.2)
[2017-01-11 16:19] LABS: BILIRUBIN,URINE NEGATIVE (NEGATIVE); PH,URINE 5.5 PH (5.0-7.5)
[2017-01-11 16:23] LABS: UA w/ MICROSCOPIC CHARGE YES
[2017-01-11] MEDS ORDERED: CEPHALEXIN 250 MG CAPSULE PO STA (16:25)
[2017-01-11 16:26] LABS: UR CULTURE IF IND INDICATED; WBC,URINE >25 /HPF (0-3)
[2017-01-11] MEDS ORDERED: FLUCONAZOLE 100 MG TABLET PO STA (16:50)
[2017-01-11] MEDS ORDERED: FLUCONAZOLE 100 MG TABLET ONE (16:53)
[2017-01-11] MEDS ORDERED: CEPHALEXIN 250 MG CAPSULE PO ONE (16:53)
[2017-01-11 18:03] VITALS: BP 122/63
== END 2017-01-11 18:10 | disposition home or self-care (01) ==
LOC: EDUNIT# → ED 13:58
DX: I95.89 Other hypotension (principal); R55 Syncope and collapse; B37.41 Candidal cystitis and urethritis; I45.10 Unspecified right bundle-branch block; R94.31 Abnormal electrocardiogram [ECG] [EKG]; I10 Essential (primary) hypertension; I25.2 Old myocardial infarction; E78.00 Pure hypercholesterolemia, unspecified; K50.90 Crohn's disease, unspecified, without complications; Z86.73 Personal history of transient ischemic attack (TIA), and cerebral infarction without residual deficits; Z87.891 Personal history of nicotine dependence
CPT/HCPCS: 36415; 80053; 81001; 83690; 83735; 85025; 87086; 93005; 99283; 99285; A9270; 81003

== ENCOUNTER 2017-01-11 18:15 | Outpatient (CLI) | payer MEDICARE, OTHER | END 2017-01-11 18:16 | disposition home or self-care (01) | LOC: EMS 18:15 | PROVIDERS: ATTEND Surgery | DX: R55 Syncope and collapse (principal) | CPT/HCPCS: A0425; A0428 ==

== ENCOUNTER 2017-01-25 11:59 | Outpatient (CLI) | payer MEDICARE, OTHER | END 2017-01-25 12:00 | disposition critical access hospital (66) | LOC: EMS 11:59 | PROVIDERS: ATTEND Surgery | DX: R69 Illness, unspecified (principal) | CPT/HCPCS: A0425; A0429 ==

== ENCOUNTER 2017-01-25 12:36 | Emergency (ER) | payer MEDICARE, OTHER ==
--- NOTE | 2017-01-25 13:18 | ED Physician Documentation ---
History of Present Illness - Stated complaint Stated Complaint: COUGH - Chief complaint Chief Complaint: Resp - History obtained from History obtained from: Patient, EMS - History of Present Illness Timing: How many days ago (several) Pain level max: 0 Pain level now: 0 Improved by: mucinex Worsened by: activity - Additonal information Additional information: cough for several days. Sent by home health for chest xray. Dry cough. no dyspnea. mucinex helped. no pain. no fevers. Patient with several days of cough. He is bedbound from a stroke. 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 Patient is a poor historian. Patient has a chronic indwelling Ariza catheter Review of Systems Constitutional: denies: Fever Nose: denies: Rhinorrhea / runny nose, Congestion Throat: denies: Sore throat Respiratory: denies: Dyspnea, Hemoptysis, Wheezing GI: denies: Abdominal Pain, Nausea, Vomiting, Diarrhea Skin: denies: Rash Musculoskeletal: denies: Neck pain, Back pain Neurologic: denies: Headache PD PAST MEDICAL HISTORY - Past Medical History Cardiovascular: Hypertension, High cholesterol, [place] Neuro: CVA GI: Crohn's disease : Indwelling catheter - Past Surgical History Past Surgical History: Yes General: Bowel surgery, Other Cardiovascular: CABG - Present Medications Home Medications: Ambulatory Orders Medication Instructions Recorded Confirmed Allopurinol 300 mg PO DAILY 08/04/16 01/25/17 Amiodarone [Pacerone] 200 mg PO DAILY 08/04/16 01/25/17 Clopidogrel [Plavix] 75 mg PO DAILY 08/04/16 01/25/17 Atorvastatin Calcium [Lipitor] 80 mg PO QPM 08/06/16 01/25/17 Gabapentin [Neurontin] 100 mg PO TID 08/06/16 10/29/16 Magnesium Oxide [Mag Ox] 400 mg PO DAILYWM #30 tablet 08/13/16 01/25/17 Aspirin [Adult Low Dose Aspirin EC] 81 mg PO DAILY 10/04/16 01/25/17 Cholecalciferol [Vitamin D3] 2,000 units PO DAILY 10/04/16 01/25/17 Collagenase Clostridium Hist. 1 applic TOP DAILY 10/29/16 01/25/17 [Santyl] Ferrous Gluconate 324 mg PO BID 10/29/16 01/25/17 Tamsulosin HCl [Flomax] 1 tab ORAL DAILY 10/29/16 01/25/17 guaiFENesin [Mucinex] 600 mg PO BID 10/29/16 01/25/17 Nystatin [Nyamyc] 1 applic TOP BID PRN 10/30/16 01/25/17 Azithromycin 250 mg PO DAILY #3 tablet 11/01/16 Fluconazole [Diflucan] 150 mg PO ONCE #1 tablet 01/11/17 Azithromycin 250 mg PO DAILY #4 tablet 01/25/17 - Allergies Allergies/Adverse Reactions: Allergies Allergy/AdvReac Type Severity Reaction Status Date / Time No Known Drug Allergies Allergy Verified 10/04/16 16:23 - Living Situation Living Arrangement: reports: Assisted living - Social History Does the pt smoke?: No Smoking Status: Former smoker Does the pt drink ETOH?: No Does the pt have substance abuse?: No - POLST Patient has POLST: Yes PD ED PE NORMAL - Vitals Vital signs reviewed: Yes - General General: Alert and oriented X 3, No acute distress - HEENT HEENT: Moist mucous membranes, Pharynx benign - Neck Neck: Supple, no meningeal sign - Cardiac Cardiac: RRR - Abdomen Abdomen: Soft, Non tender, Non distended - Derm Derm: Warm and dry - Extremities Extremities: Other (extremity weakness x 4, strongest in the RUE.) - Neuro Neuro: Alert and oriented X 3 - Psych Psych: Normal mood, Normal affect Results - Vitals Vitals: Vital Signs - 24 hr 01/25/17 01/25/17 01/25/17 12:40 15:00 17:00 Temperature 36.5 C 36.2 C L Heart Rate 69 61 64 Respiratory 18 18 18 Rate Blood Pressure 101/45 L 105/66 109/59 L O2 Saturation 96 98 98 Oxygen O2 Source [Without Activity] Room air O2 Source Room air - Labs Labs: Laboratory Tests 01/25/17 13:30 Urine Color YELLOW Urine Clarity CLOUDY Urine pH 5.5 Ur Specific [place] 1.025 Urine Protein 100 H Urine Glucose (UA) NEGATIVE Urine Ketones NEGATIVE Urine Occult Blood LARGE H Urine Nitrite NEGATIVE Urine Bilirubin NEGATIVE Urine Urobilinogen 0.2 (NORMAL) Ur Leukocyte Esterase LARGE H Urine RBC TNTC H Urine WBC >25 H Ur Squamous Epith Cells NONE SEEN Urine Bacteria Few Urine Yeast PRESENT Ur Microscopic Review INDICATED Urine Culture Comments INDICATED - Rads (name of study) cxr Radiology: Prelim report reviewed, EMP read contemporaneously, See rad report ( Small right and probable very small left pleural effusion, not present 2016. Bilateral lower lung atelectasis or pneumonia. Status post sternotomy and mediastinal surgery. ) PD MEDICAL DECISION MAKING - ED course Complexity details: reviewed results, re-evaluated patient, considered differential, d/w patient ED course: Patient is an 86-year-old gentleman who presents to the emergency department with concern for pneumonia secondary to recent coughing. There is lower lung atelectasis versus pneumonia on chest x-ray, will air on the side of caution and treat him. He has chronic UTIs from his Ariza catheter. Given that he is well-appearing, nontoxic. Afebrile. We will not treat this with separate antibiotics at this time. Appears to be colonization. Patient counseled regarding signs and symptoms for which I believe and urgent re-evaluation would be necessary. Patient with good understanding of and agreement to plan and is comfortable going home at this time This document was made in part using voice recognition software. While efforts are made to proofread this document, sound alike and grammatical errors may occur. Departure - Departure Disposition: 01 Home, Self Care Clinical Impression: Pneumonia Qualifiers: Pneumonia type: due to unspecified organism Laterality: bilateral Lung location : lower lobe of lung Qualified Code(s): J18.9 - Pneumonia, unspecified organism Condition: Good Instructions: ED Pneumonia Adult Follow-Up: Neptali Cavazos MD [Primary Care Provider] - Within 1 week Prescriptions: Azithromycin 250 mg PO DAILY #4 tablet Comments: Take all antibiotics until gone. Return if Cam worsens. Discharge Date/Time: 01/25/17 17:15
[2017-01-25 13:39] LABS: BILIRUBIN,URINE NEGATIVE (NEGATIVE); PH,URINE 5.5 PH (5.0-7.5)
[2017-01-25 13:43] LABS: UA w/ MICROSCOPIC CHARGE YES
[2017-01-25 13:50] LABS: UR CULTURE IF IND INDICATED; WBC,URINE >25 /HPF (0-3)
--- NOTE | 2017-01-25 14:25 | XRAY Preliminary Report ---
Exam: XR Chest 1 View IMPRESSION: Small right and probable very small left pleural effusion, not present 08/04/2016. Bilateral lower lung atelectasis or pneumonia. Status post sternotomy and mediastinal surgery. [facility] SITE ID: [id number]
--- NOTE | 2017-01-25 14:28 | XRAY Report ---
EXAM: CHEST RADIOGRAPHY ONE VIEW EXAM DATE: 01/25/2017. CLINICAL HISTORY: Cough. COMPARISON: 08/04/2016. TECHNIQUE: AP upright portable chest at 1359. FINDINGS: Lungs/Pleura: Small right pleural effusion filling the costophrenic angle, not present previously. Pr obable very small left pleural effusion. Mild increased opacity of both lower lungs. Normal vasculatu re. No pneumothorax. Mediastinum: Heart size is normal for the technique. Aortic tortuosity and atherosclerosis are unchan ged. Multiple surgical clips again demonstrated. Bones: Multiple sternal wire sutures. Degenerative changes of the spine. Left shoulder prosthesis. IMPRESSION: Small right and probable very small left pleural effusion, not present 08/04/2016. Bilateral lower lung atelectasis or pneumonia. Status post sternotomy and mediastinal surgery. [facility] Referring Provider Line: [phone] SITE ID: [id number]
[2017-01-25] MEDS ORDERED: AZITHROMYCIN 250 MG TABLET PO STA (14:41)
[2017-01-25] MEDS ORDERED: AZITHROMYCIN 250 MG TABLET PO ONE (14:48)
[2017-01-25 17:32] VITALS: BP 109/59
== END 2017-01-25 17:15 | disposition home or self-care (01) ==
LOC: EDUNIT# → ED 12:36 → SUPCPDRO 12:36 → ED 17:15
DX: J18.9 Pneumonia, unspecified organism (principal); I69.354 Hemiplegia and hemiparesis following cerebral infarction affecting left non-dominant side; Z74.01 Bed confinement status; I10 Essential (primary) hypertension; E78.00 Pure hypercholesterolemia, unspecified; I25.2 Old myocardial infarction; Z79.82 Long term (current) use of aspirin; Z87.891 Personal history of nicotine dependence
CPT/HCPCS: 71010; 81001; 87086; 99283; A9270; 81003

== ENCOUNTER 2017-01-25 17:19 | Outpatient (CLI) | payer MEDICARE, OTHER | END 2017-01-25 17:20 | disposition home or self-care (01) | LOC: EMS 17:19 | PROVIDERS: ATTEND Surgery | DX: Z74.01 Bed confinement status (principal) | CPT/HCPCS: A0425; A0428 ==

== ENCOUNTER 2017-02-08 11:50 | Outpatient (CLI) | payer MEDICARE, OTHER | END 2017-02-08 11:51 | disposition critical access hospital (66) | LOC: EMS 11:50 | PROVIDERS: ATTEND Surgery | DX: M79.672 Pain in left foot (principal) | CPT/HCPCS: A0425; A0429 ==

== ENCOUNTER 2017-02-08 12:27 | Emergency (ER) | payer MEDICARE, OTHER ==
--- NOTE | 2017-02-08 13:51 | ED Physician Documentation ---
History of Present Illness - Stated complaint Stated Complaint: BILAT ANKLE WOUNDS - Chief complaint Chief Complaint: Ext Problem - History obtained from History obtained from: Patient, EMS - History of Present Illness Timing: Today Pain level max: 1 Pain level now: 1 Improved by: rest Worsened by: movement - Additonal information Additional information: states L foot pain since this am. States 0.5/10. States had osteomyelitis in the foot 3 months ago. worse with movement. Non-ambulatory. Pain is in plantar aspect mid foot. Patient states that he sleeps with bandages on the foot at night, states that the pain mostly resolved from the bandages were removed. Review of Systems Ten Systems: 10 systems reviewed and negative Constitutional: denies: Fever, Chills GI: denies: Vomiting Skin: denies: Rash Musculoskeletal: denies: Neck pain, Back pain Neurologic: denies: Headache PD PAST MEDICAL HISTORY - Past Medical History Past Medical History: Yes Cardiovascular: Hypertension, High cholesterol, [place] Neuro: CVA GI: Crohn's disease : Indwelling catheter - Past Surgical History Past Surgical History: Yes General: Bowel surgery, Other Cardiovascular: CABG - Present Medications Home Medications: Ambulatory Orders Medication Instructions Recorded Confirmed Allopurinol 300 mg PO DAILY 08/04/16 02/08/17 Amiodarone [Pacerone] 200 mg PO DAILY 08/04/16 02/08/17 Clopidogrel [Plavix] 75 mg PO DAILY 08/04/16 02/08/17 Atorvastatin Calcium [Lipitor] 80 mg PO QPM 08/06/16 02/08/17 Gabapentin [Neurontin] 100 mg PO TID 08/06/16 02/08/17 Magnesium Oxide [Mag Ox] 400 mg PO DAILYWM #30 tablet 08/13/16 02/08/17 Aspirin [Adult Low Dose Aspirin EC] 81 mg PO DAILY 10/04/16 02/08/17 Cholecalciferol [Vitamin D3] 2,000 units PO DAILY 10/04/16 02/08/17 Collagenase Clostridium Hist. 1 applic TOP DAILY 10/29/16 02/08/17 [Santyl] Ferrous Gluconate 324 mg PO BID 10/29/16 02/08/17 Tamsulosin HCl [Flomax] 1 tab ORAL DAILY 10/29/16 02/08/17 guaiFENesin [Mucinex] 600 mg PO BID 10/29/16 02/08/17 Nystatin [Nyamyc] 1 applic TOP BID PRN 10/30/16 02/08/17 Azithromycin 250 mg PO DAILY #3 tablet 11/01/16 02/08/17 Fluconazole [Diflucan] 150 mg PO ONCE #1 tablet 01/11/17 02/08/17 Azithromycin 250 mg PO DAILY #4 tablet 01/25/17 02/08/17 - Allergies Allergies/Adverse Reactions: Allergies Allergy/AdvReac Type Severity Reaction Status Date / Time No Known Drug Allergies Allergy Verified 02/08/17 12:41 - Social History Does the pt smoke?: No Smoking Status: Former smoker Does the pt drink ETOH?: No Does the pt have substance abuse?: No - POLST Patient has POLST: Yes PD ED PE NORMAL - Vitals Vital signs reviewed: Yes - General General: Alert and oriented X 3, No acute distress - Cardiac Cardiac: RRR - Respiratory Respiratory: No respiratory distress, Clear bilaterally - Abdomen Abdomen: Soft, Non tender, Non distended - Derm Derm: Warm and dry - Extremities Extremities: Other (There are several small shallow ulcers on the foot, none appear infected. No drainage. No swelling of the soft tissues. No erythema. There is mild point tenderness on the plantar aspect of the foot, near the midfoot. The pain is mostly with active range of motion. Passive range of motion. No swelling. Neurovascularly intact) - Neuro Neuro: Alert and oriented X 3 - Psych Psych: Normal mood, Normal affect Results - Vitals Vitals: Vital Signs - 24 hr 02/08/17 02/08/17 12:33 14:53 Temperature 36.3 C L 36.2 C L Heart Rate 69 68 Respiratory 16 16 Rate Blood Pressure 107/60 114/63 O2 Saturation 100 99 Oxygen O2 Source [Without Activity] Room air O2 Source Room air - Rads (name of study) Left foot x-ray Radiology: Prelim report reviewed, EMP read contemporaneously, See rad report ( No evidence of recurrent osteomyelitis. ) PD MEDICAL DECISION MAKING - ED course Complexity details: reviewed results, re-evaluated patient, considered differential, d/w patient, d/w family (daughter) ED course: Patient is an 86-year-old gentleman who presents to the emergency department with left foot pain, worse last night but resolved in the emergency department. No evidence of infection. No erythema, no cellulitis. The ulcerations are small and are healing well with wound care. No acute findings on x-ray. No fevers. No vomiting. Patient is laughing and smiling in the emergency department. We will have him follow-up closely with his doctor for further evaluation and care. Patient and family counseled regarding signs and symptoms for which I believe and urgent re-evaluation would be necessary. Patient with good understanding of and agreement to plan and is comfortable going home at this time This document was made in part using voice recognition software. While efforts are made to proofread this document, sound alike and grammatical errors may occur. Departure - Departure Disposition: Home, Self Care Clinical Impression: Strain of foot, left Qualifiers: Encounter type: initial encounter Qualified Code(s): S96.912A - Strain of unspecified muscle and tendon at ankle and foot level, left foot, initial encounter Condition: Good Instructions: ED Sprain Foot Follow-Up: Neptali Cavazos MD [Primary Care Provider] - Comments: Return if you worsen. Your xray is normal today. there is no evidence of infection at this time. Discharge Date/Time: 02/08/17 16:14
--- NOTE | 2017-02-08 14:44 | XRAY Preliminary Report ---
Exam: XR Foot 3 View LT IMPRESSION: No evidence of recurrent osteomyelitis. [facility] SITE ID: [id number]
[2017-02-08 14:54] VITALS: BP 114/63
--- NOTE | 2017-02-08 14:56 | XRAY Report ---
EXAM: LEFT FOOT RADIOGRAPHY EXAM DATE: 02/08/2017 02:27 PM. CLINICAL HISTORY: Left foot pain, states may have osteomyelitis again. COMPARISON: MRI left foot 08/06/2016. No prior plain films. TECHNIQUE: 3 views. FINDINGS: Bones: Interval resection of a 2.5 x 0.6 cm segment of bone along the posterior lateral aspect of the calcaneus, in the area of the previously noted osteomyelitis. At this time, trabecular and cortical patterns are intact, no periosteal reaction. Joints: Normal. No subluxations. Soft Tissues: Edema with ulcerations overlying the posterior aspect of the calcaneus. IMPRESSION: No evidence of recurrent osteomyelitis. [facility] Referring Provider Line: [phone] SITE ID: [id number]
== END 2017-02-08 16:14 | disposition home or self-care (01) ==
LOC: EDUNIT# → ED 12:27
DX: S96.912A Strain of unspecified muscle and tendon at ankle and foot level, left foot, initial encounter (principal); X58.XXXA Exposure to other specified factors, initial encounter; L97.529 Non-pressure chronic ulcer of other part of left foot with unspecified severity; I10 Essential (primary) hypertension; I25.10 Atherosclerotic heart disease of native coronary artery without angina pectoris; Z95.1 Presence of aortocoronary bypass graft; I25.2 Old myocardial infarction; E78.00 Pure hypercholesterolemia, unspecified; K50.90 Crohn's disease, unspecified, without complications; Z86.73 Personal history of transient ischemic attack (TIA), and cerebral infarction without residual deficits; Z79.82 Long term (current) use of aspirin; Z87.891 Personal history of nicotine dependence
CPT/HCPCS: 99283

== ENCOUNTER 2017-02-08 16:24 | Outpatient (CLI) | payer MEDICARE, OTHER | END 2017-02-08 16:25 | disposition home or self-care (01) | LOC: EMS 16:24 | PROVIDERS: ATTEND Surgery | DX: M79.672 Pain in left foot (principal); I69.30 Unspecified sequelae of cerebral infarction | CPT/HCPCS: A0425; A0428 ==

== ENCOUNTER 2017-02-26 10:44 | Outpatient (CLI) | payer MEDICARE, OTHER | END 2017-02-26 10:45 | disposition critical access hospital (66) | LOC: EMS 10:44 | PROVIDERS: ATTEND Surgery | DX: R53.1 Weakness (principal); R50.9 Fever, unspecified; R41.0 Disorientation, unspecified; R05 Cough | CPT/HCPCS: A0425; A0429 ==

== ENCOUNTER 2017-02-26 11:22 | Emergency (ER) | payer MEDICARE, OTHER ==
[2017-02-26 12:07] LABS: BILIRUBIN,URINE NEGATIVE (NEGATIVE)
[2017-02-26 12:08] LABS: UA w/ MICROSCOPIC CHARGE YES
[2017-02-26 12:12] LABS: UR CULTURE IF IND INDICATED; WBC,URINE >25 /HPF (0-3)
[2017-02-26] MEDS ORDERED: CIPROFLOXACIN 250 MG TABLET PO STA (12:15)
--- NOTE | 2017-02-26 12:20 | ED Physician Documentation ---
History of Present Illness - Stated complaint Stated Complaint: FEVER - Chief complaint Chief Complaint: General - History obtained from History obtained from: Patient - History of Present Illness Timing: Other (86-year-old gentleman with history of BPH and chronic indwelling Ariza catheter presents with concern for UTI. The nurses note stated there was a reported fever however the number is not documented.He says he feels fine except that "my medications cause me to have low appetite." He denies any specific complaints specifically abdominal pain, fever, vomiting.) Review of Systems Constitutional: denies: Fever, Chills GI: denies: Abdominal Pain, Nausea, Vomiting, Diarrhea Musculoskeletal: denies: Neck pain, Back pain PD PAST MEDICAL HISTORY - Past Medical History Past Medical History: Yes Cardiovascular: Hypertension, High cholesterol, [place] Neuro: CVA GI: Crohn's disease : Indwelling catheter - Past Surgical History Past Surgical History: Yes General: Bowel surgery, Other Cardiovascular: CABG - Present Medications Home Medications: Ambulatory Orders Medication Instructions Recorded Confirmed Allopurinol 300 mg PO DAILY 08/04/16 02/26/17 Amiodarone [Pacerone] 200 mg PO DAILY 08/04/16 02/26/17 Clopidogrel [Plavix] 75 mg PO DAILY 08/04/16 02/26/17 Atorvastatin Calcium [Lipitor] 80 mg PO QPM 08/06/16 02/26/17 Gabapentin [Neurontin] 100 mg PO TID 08/06/16 02/26/17 Magnesium Oxide [Mag Ox] 400 mg PO DAILYWM #30 tablet 08/13/16 02/26/17 Aspirin [Adult Low Dose Aspirin EC] 81 mg PO DAILY 10/04/16 02/26/17 Cholecalciferol [Vitamin D3] 2,000 units PO DAILY 10/04/16 02/26/17 Collagenase Clostridium Hist. 1 applic TOP DAILY 10/29/16 02/26/17 [Santyl] Ferrous Gluconate 324 mg PO BID 10/29/16 02/26/17 Tamsulosin HCl [Flomax] 1 tab ORAL DAILY 10/29/16 02/26/17 Nystatin [Nyamyc] 1 applic TOP BID PRN 10/30/16 02/08/17 Fluconazole [Diflucan] 150 mg PO ONCE #1 tablet 01/11/17 02/26/17 Ciprofloxacin HCl [Cipro] 500 mg PO BID #14 tablet 02/26/17 - Allergies Allergies/Adverse Reactions: Allergies Allergy/AdvReac Type Severity Reaction Status Date / Time No Known Drug Allergies Allergy Verified 02/26/17 11:37 - Social History Does the pt smoke?: No Smoking Status: Former smoker Does the pt drink ETOH?: No Does the pt have substance abuse?: No - POLST Patient has POLST: Yes PD ED PE NORMAL - Vitals Vital signs reviewed: Yes - General General: No acute distress, Well developed/nourished, Other (He is mildly disoriented but pleasant and cooperative) - Abdomen Abdomen: Normal bowel sounds, Soft, Non tender, Other (Ileostomy on the right) - Derm Derm: No rash - Psych Psych: Normal mood, Normal affect Results - Vitals Vitals: Vital Signs - 24 hr 02/26/17 11:30 Temperature 37.1 C Heart Rate 93 Respiratory 20 Rate Blood Pressure 118/57 L O2 Saturation 97 Oxygen O2 Source [Without Activity] Room air O2 Source Room air - Labs Labs: Laboratory Tests 02/26/17 11:50 Urine Color YELLOW Urine Clarity CLOUDY Urine pH 6.0 Ur Specific [place] 1.025 Urine Protein 100 H Urine Glucose (UA) NEGATIVE Urine Ketones 15 H Urine Occult Blood LARGE H Urine Nitrite POSITIVE H Urine Bilirubin NEGATIVE Urine Urobilinogen 0.2 (NORMAL) Ur Leukocyte Esterase LARGE H Urine RBC TNTC H Urine WBC >25 H Urine WBC Clumps PRESENT Ur Squamous Epith Cells RARE Squamous Urine Crystals 0-2 Calcium Oxalate Urine Bacteria Moderate H Ur Microscopic Review INDICATED Urine Culture Comments INDICATED PD MEDICAL DECISION MAKING - ED course ED course: 86-year-old gentleman with chronic indwelling Ariza presents with concern for UTI and positive urinalysis. He does not appear systemically ill. Antibiotic choice is somewhat complicated, recent cultures reviewed with enterococcus, most recent was sensitive to ciprofloxacin. He specifically requests discharge "get me out of here as soon as possible." Departure - Departure Disposition: 01 Home, Self Care Clinical Impression: Urinary retention with incomplete bladder emptying Urinary tract infection Qualifiers: Urinary tract infection type: catheter-associated UTI Indwelling urinary catheter type: indwelling urethral catheter Encounter type: initial encounter Qualified Code(s): T83.511A - Infection and inflammatory reaction due to indwelling urethral catheter, initial encounter Condition: Good Record reviewed to determine appropriate education?: Yes Instructions: ED UTI Cystitis Male Prescriptions: Ciprofloxacin HCl [Cipro] 500 mg PO BID #14 tablet Comments: Call your doctor to arrange a follow-up appointment, make the next available appointment. In the interim, return anytime if worse or if new symptoms develop. We will culture your urine, the results should be done in 48-72 hours. If an antibiotic change is necessary we will call you. Return if worse in the meantime, especially if you develop increasing flank pain, fevers, or cannot keep down the medication.
[2017-02-26] MEDS ORDERED: CIPROFLOXACIN 250 MG TABLET PO ONE (12:52)
[2017-02-26 12:53] VITALS: BP 113/51
== END 2017-02-26 13:08 | disposition home or self-care (01) ==
LOC: EDUNIT# → ED 11:22
DX: T83.511A Infection and inflammatory reaction due to indwelling urethral catheter, initial encounter (principal); N39.0 Urinary tract infection, site not specified; I10 Essential (primary) hypertension; I25.10 Atherosclerotic heart disease of native coronary artery without angina pectoris; Z95.1 Presence of aortocoronary bypass graft; Z79.01 Long term (current) use of anticoagulants; N40.0 Benign prostatic hyperplasia without lower urinary tract symptoms; I25.2 Old myocardial infarction; K50.90 Crohn's disease, unspecified, without complications; Z86.73 Personal history of transient ischemic attack (TIA), and cerebral infarction without residual deficits; Z79.82 Long term (current) use of aspirin; Z87.891 Personal history of nicotine dependence
CPT/HCPCS: 81001; 87077; 87086; 87181; 99283; 99284; A9270; 81003

== ENCOUNTER 2017-02-26 13:17 | Outpatient (CLI) | payer MEDICARE, OTHER | END 2017-02-26 13:18 | disposition home or self-care (01) | LOC: EMS 13:17 | PROVIDERS: ATTEND Surgery | DX: N39.0 Urinary tract infection, site not specified (principal); Z74.01 Bed confinement status | CPT/HCPCS: A0425; A0428 ==

== ENCOUNTER 2017-03-22 12:57 | Outpatient (CLI) | payer MEDICARE, OTHER ==
--- NOTE | 2017-03-22 15:44 | CT Report ---
CT KUB: 03/22/2017 CLINICAL HISTORY: Flank pain. TECHNIQUE: Axial noncontrast images of the abdomen and pelvis with multiplanar reconstructions. COMPARISON: None. FINDINGS: There are bilateral right greater than left pleural effusions and associated passive air space disease. Multiple gallstones are present. At least one stone is seen in the gallbladder neck. The pancreas is atrophic. Splenic artery and spleen calcifications noted. No definite focal hepatic pathology allowing for artifact from the patient's arms. The adrenal glands are unremarkable. An 1.4 cm exophytic round lesion from the mid pole of the posterior right kidney , 55 Hounsfield units. An 1.4 cm exophytic round lesion arising from the upper pole measuring 117 Hounsfield units. Both findings likely represent hemorrhagic cysts. This could be confirmed by ultrasound. In the proximal right ureter, there is an elongated stone which extends from the proximal ureter into the lower pole that measures maximally 1 x 1.2 cm transverse and extends over a vertical distance of approximately 3 cm. No evidence of obstruction is seen. The right kidney appears strophic. On the left , there is also a calcification in the proximal ureter measuring approximately 2 cm in length by about 0.4 cm in diameter. No findings of obstruction. There are additional small nonobstructing calcifications in the right more numerous than left upper pole. There is a right lower quadrant ileostomy s/p colectomy. A Gottlieb catheter decompresses the bladder. The bladder appears thick-walled and markedly irregular in configuration. Air is seen within the bladder and possibly in the bladder wall. Extraluminal air adjacent to the bladder is not excluded. Vascular calcification is present. There is degenerative change in the spine with spurring. No definite bone destruction. No free fluid, pathologic adenopathy or abnormal collections. IMPRESSION: 1. LIMITED STUDY DUE TO THE PATIENT'S INABILITY TO MOVE HIS ARMS OFF THE ABDOMEN. 2. RIGHT GREATER THAN LEFT PLEURAL EFFUSIONS AND BASILAR AIR SPACE DISEASE. 3. 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 4. STATUS POST COLECTOMY WITH RIGHT LOWER QUADRANT ILEOSTOMY. 5. HIGH ATTENUATION SMALL MASSES PROJECTING FROM THE RIGHT KIDNEY, LIKELY COMPLEX RENAL CYSTS, COULD BE CONFIRMED BY ULTRASOUND. 6. BILATERAL NONOBSTRUCTING PROXIMAL URETERAL CALCULI RIGHT LARGER THAN LEFT. 7. INDWELLING GOTTLIEB CATHETER WITH MARKEDLY IRREGULAR THICK-WALLED BLADDER. THE POSSIBILITY OF BLADDER TUMOR OR CHRONIC INFECTION/IRRITATION IS NOT EXCLUDED. A RETROGRADE STUDY MAY BE USEFUL. 8. EXTENSIVE DEGENERATIVE CHANGE IN THE SPINE. 9. OTHER INCIDENTAL FINDINGS ABOVE. In accordance with CT protocol optimization, one or more of the following dose reduction techniques were utilized for this exam: automated exposure control, adjustment of mA and/or KV based on patient size, or use of iterative reconstructive technique. JOB #: [id number] EXT JOB #: [id number] [facility]
== END 2017-03-22 12:58 | disposition home or self-care (01) ==
LOC: DI 12:57
PROVIDERS: ATTEND Urology
DX: J90 Pleural effusion, not elsewhere classified (principal); J98.4 Other disorders of lung; K80.20 Calculus of gallbladder without cholecystitis without obstruction; Z90.49 Acquired absence of other specified parts of digestive tract; N28.89 Other specified disorders of kidney and ureter; N20.1 Calculus of ureter; M47.9 Spondylosis, unspecified
CPT/HCPCS: 74176

== ENCOUNTER 2017-03-28 14:00 | Outpatient (CLI) | payer MEDICARE, OTHER ==
[2017-03-28 17:46] LABS: CALCIUM 10.4 mg/dL (8.5-10.3); CREATININE 1.6 mg/dL (0.6-1.2); POTASSIUM 4.3 mmol/L (3.5-5.0)
[2017-03-28 18:08] LABS: BASOPHILS # (AUTO) 0.1 10^3/uL (0.0-0.1); BASOPHILS % (AUTO) 0.7 %; EOSINOPHILS # (AUTO) 0.4 10^3/uL (0.0-0.7); EOSINOPHILS % (AUTO) 4.3 %; HCT - HEMATOCRIT 32.8 % (42.0-52.0); HGB - HEMOGLOBIN 10.5 g/dL (14.0-18.0); LYMPHOCYTES # (AUTO) 0.8 10^3/uL (1.5-3.5); LYMPHOCYTES % (AUTO) 9.2 %; MEAN CORPUSCULAR HEMOGLOBIN 31.9 pg (27.0-31.0); MEAN CORPUSCULAR HGB CONC 32.1 g/dL (32.0-36.0); MEAN CORPUSCULAR VOLUME 99.5 fL (80.0-94.0); MEAN PLATELET VOLUME 7.5 fL (7.4-11.4); MONOCYTES # (AUTO) 0.5 10^3/uL (0.0-1.0); NEUTROPHILS % (AUTO) 79.8 %; RED BLOOD COUNT 3.29 10^6/uL (4.70-6.10); RED CELL DISTRIBUTION WIDTH 15.6 % (12.0-15.0); UNCORRECTED WHITE BLOOD COUNT 8.8 x10^3/uL; WHITE BLOOD COUNT 8.8 x10^3/uL (4.8-10.8)
== END 2017-03-28 14:01 | disposition home or self-care (01) ==
LOC: LAB.R 14:00
PROVIDERS: ATTEND Internal Medicine
DX: G93.40 Encephalopathy, unspecified (principal)
CPT/HCPCS: 36415; 80048; 85025

== ENCOUNTER 2017-04-15 08:00 | Outpatient (CLI) | payer MEDICARE, OTHER | END 2017-04-15 08:01 | LOC: LAB.F 08:00 | PROVIDERS: ATTEND Internal Medicine | DX: S91.302A Unspecified open wound, left foot, initial encounter (principal) | CPT/HCPCS: 87070; 87077; 87205 ==

== ENCOUNTER 2017-05-18 08:34 | Outpatient (CLI) | payer MEDICARE, OTHER | END 2017-05-18 08:35 | disposition critical access hospital (66) | LOC: EMS 08:34 | PROVIDERS: ATTEND Surgery | DX: R41.82 Altered mental status, unspecified (principal) | CPT/HCPCS: A0425; A0429 ==

== ENCOUNTER 2017-05-18 09:09 | Emergency (ER) | payer MEDICARE, OTHER ==
--- NOTE | 2017-05-18 10:34 | CT Preliminary Report ---
Exam: CT HEAD W/O IMPRESSION: 1. No acute intracranial abnormality evident. No intracranial hemorrhage or space-occupying lesion. 2. Stable age-related atrophy and chronic white matter disease. 3. Atherosclerosis. [facility] SITE ID: [id number]
--- NOTE | 2017-05-18 10:36 | CT Report ---
EXAM: CT HEAD EXAM DATE: 05/18/2017 10:10 AM. CLINICAL HISTORY: Altered mental status. COMPARISON: Head CT 08/04/2016. TECHNIQUE: Multiaxial CT images were obtained from the foramen magnum to the vertex. Reformats: Coron al. IV contrast: None. In accordance with CT protocol optimization, one or more of the following dose reduction techniques w ere utilized for this exam: automated exposure control, adjustment of mA and/or KV based on patient s ize, or use of iterative reconstructive technique. FINDINGS: Parenchyma: No intraparenchymal hemorrhage. No evidence of mass, midline shift, or CT findings of inf arction. Stable moderate periventricular and supratentorial white matter hypodensities consistent wit h chronic ischemic microangiopathy. Bonilla-white differentiation is otherwise distinct. Extraaxial Spaces: Diffusely prominent, unchanged. No subdural or epidural collections identified. Ventricles: Stable. No jermaine hydrocephalus. Sinuses and Orbits: Imaged paranasal sinuses, orbits, and mastoids show no significant abnormality. Bones: No evidence of fracture or calvarial defect. Other: Calcified cavernous carotids and distal left vertebral artery. IMPRESSION: 1. No acute intracranial abnormality evident. No intracranial hemorrhage or space-occupying lesion. 2. Stable age-related atrophy and chronic white matter disease. 3. Atherosclerosis. [facility] Referring Provider Line: [phone] SITE ID: [id number]
--- NOTE | 2017-05-18 10:38 | XRAY Preliminary Report ---
Exam: XR CHEST 1 VIEW IMPRESSION: 1. Stable to worsening bibasilar atelectasis/infiltrates. 2. Small to moderate right and small left pleural effusions. [facility] SITE ID: [id number]
--- NOTE | 2017-05-18 10:41 | XRAY Report ---
EXAM: CHEST RADIOGRAPHY EXAM DATE: 05/18/2017 10:19 AM. CLINICAL HISTORY: Altered mental status. COMPARISON: 01/25/2017. TECHNIQUE: 1 view. FINDINGS: Lungs/Pleura: Persistent bibasilar pleural-parenchymal opacities, stable to mildly increased on the r ight, increased on the left with diffusely hazy perihilar/infrahilar opacities. No vascular congestio n. Clear upper lungs. No pneumothorax. Mediastinum: Grossly stable cardiomediastinal silhouette. CABG. Other: Sternal wires. No acute fracture identified. Left shoulder arthroplasty partially seen. IMPRESSION: 1. Stable to worsening bibasilar atelectasis/infiltrates. 2. Small to moderate right and small left pleural effusions. [facility] Referring Provider Line: [phone] SITE ID: [id number]
--- NOTE | 2017-05-18 12:40 | ED Physician Documentation ---
History of Present Illness - Stated complaint Stated Complaint: ALOC - Chief complaint Chief Complaint: Neuro - History obtained from History obtained from: Family, EMS (EMS reports that they were called by the Pt' s care provider because she thought that the pt was less responsive this AM. was recently changed to morphine for his chronic leg pain. No reports of trauma.) Review of Systems Unable to obtain: Other (pt is confused and would not answer questions.) Cardiac: denies: Chest pain / pressure Respiratory: denies: Dyspnea GI: denies: Abdominal Pain PD PAST MEDICAL HISTORY - Past Medical History Past Medical History: Yes Cardiovascular: Hypertension, High cholesterol, [place] Neuro: CVA GI: Crohn's disease : Indwelling catheter - Past Surgical History Past Surgical History: Yes General: Bowel surgery, Other Cardiovascular: CABG - Present Medications Home Medications: Ambulatory Orders Medication Instructions Recorded Confirmed Allopurinol 300 mg PO DAILY 08/04/16 05/18/17 Amiodarone [Pacerone] 200 mg PO DAILY 08/04/16 05/18/17 Clopidogrel [Plavix] 75 mg PO DAILY 08/04/16 05/18/17 Atorvastatin Calcium [Lipitor] 80 mg PO QPM 08/06/16 05/18/17 Gabapentin [Neurontin] 100 mg PO TID 08/06/16 05/18/17 Aspirin [Adult Low Dose Aspirin EC] 81 mg PO DAILY 10/04/16 05/18/17 Tamsulosin HCl [Flomax] 1 tab ORAL DAILY 10/29/16 05/18/17 Morphine Sulfate 2.5 mg PO QID PRN 05/18/17 05/18/17 Oxybutynin [Ditropan] 5 mg PO BID 05/18/17 05/18/17 oxyCODONE [Roxicodone] 5 mg PO Q4-6H PRN 05/18/17 05/18/17 - Allergies Allergies/Adverse Reactions: Allergies Allergy/AdvReac Type Severity Reaction Status Date / Time No Known Drug Allergies Allergy Verified 05/18/17 09:27 - Social History Does the pt smoke?: No Smoking Status: Never smoker Does the pt drink ETOH?: No Does the pt have substance abuse?: No - POLST Patient has POLST: Yes PD ED PE NORMAL - Vitals Vital signs reviewed: Yes - General General: No acute distress, Well developed/nourished. No: Alert and oriented X 3 (pt is alert to person, place (hospital) but not city, did not know year, did not know why he was here, did know his care takers name and his daughters name) - HEENT HEENT: Atraumatic, PERRL - Cardiac Cardiac: RRR - Respiratory Respiratory: No respiratory distress - Abdomen Abdomen: Soft, Non distended - Male Male : Other (pimentel cath in place) - Derm Derm: Other (has multiple chronic ulcers on his bilateral feet) - Neuro Neuro: Other (alert to person, place, and care takes name) Eye Opening: Spontaneous Motor: Obeys Commands Verbal: Confused GCS Score: 14 - Psych Psych: Normal affect Results - Vitals Vitals: Vital Signs - 24 hr 05/18/17 05/18/17 09:11 11:14 Temperature 36.2 C L 37.6 C H Heart Rate 93 103 H Respiratory 18 14 Rate Blood Pressure 136/52 H 174/74 H O2 Saturation 99 92 Oxygen O2 Source [Without Activity] Room air O2 Source Room air - EKG (time done) 0919 Rate: Rate (enter#) Rhythm: NSR [place]: Normal Intervals: RBBB QRS: Normal Ischemia: Non specific changes - Rads (name of study) Head CT Radiology: Prelim report reviewed (No acute findings) CXR Radiology: Prelim report reviewed PD MEDICAL DECISION MAKING - ED course Complexity details: d/w family ED course: Pt is alert in the ER and yelling at staff saying that he is being held here against his will. he states that he does not know why he is here and feels fine. We had a difficult time gaining IV access and so I had a discussion with his daughter who is the POA. I gave her a description of how he was acting here in the ER and she states that this is hw he acts when he gets morphine. she states that he is on the morphine because of this leg pain. She stated that she has tried to get his providers to not give him morphine because of this. I informed her that we were having problems gaining IV access. after the discussion we decided not to continue poking the pt and not obtain blood. We decided to send the pt back home. The daughter states that she can call his PCM to discuss further care. Departure - Departure Disposition: Home, Self Care Clinical Impression: Altered mental status Qualifiers: Altered mental status type: unspecified Qualified Code(s): R41.82 - Altered mental status, unspecified Condition: Good Instructions: ED Altered Loc Follow-Up: Neptali Cavazos MD [Primary Care Provider] - Comments: Recommend that you stop the morphine. Return to the ER for any new symptoms.
[2017-05-18 13:59] VITALS: BP 181/69
== END 2017-05-18 14:47 | disposition home or self-care (01) ==
LOC: EDUNIT# → ED 09:09
DX: R41.82 Altered mental status, unspecified (principal); I45.10 Unspecified right bundle-branch block; R94.31 Abnormal electrocardiogram [ECG] [EKG]; I10 Essential (primary) hypertension; E78.00 Pure hypercholesterolemia, unspecified; I25.2 Old myocardial infarction; I25.10 Atherosclerotic heart disease of native coronary artery without angina pectoris; Z95.1 Presence of aortocoronary bypass graft; K50.90 Crohn's disease, unspecified, without complications; Z86.73 Personal history of transient ischemic attack (TIA), and cerebral infarction without residual deficits; Z79.82 Long term (current) use of aspirin
CPT/HCPCS: 70450; 71010; 80053; 82550; 83605; 83690; 85025; 85610; 85730; 93005; 99284

== ENCOUNTER 2017-05-18 14:50 | Outpatient (CLI) | payer MEDICARE, OTHER | END 2017-05-18 14:51 | disposition home or self-care (01) | LOC: EMS 14:50 | PROVIDERS: ATTEND Surgery | DX: Z74.01 Bed confinement status (principal) | CPT/HCPCS: A0425; A0428 ==

== ENCOUNTER 2017-05-20 14:16 | Outpatient (CLI) | payer MEDICARE, OTHER | END 2017-05-20 14:17 | disposition critical access hospital (66) | LOC: EMS 14:16 | PROVIDERS: ATTEND Surgery | DX: R06.00 Dyspnea, unspecified (principal) | CPT/HCPCS: A0425; A0429 ==

== ENCOUNTER 2017-05-20 14:55 | Inpatient (IN) | payer MEDICARE, OTHER ==
[2017-05-20] MEDS ORDERED: ALBUTEROL NEB 2.5 MG/3 ML INH STA (15:30)
--- NOTE | 2017-05-20 15:32 | ED Physician Documentation ---
PD HPI DYSPNEA - Stated complaint Stated Complaint: DIFFICULTY BREATHING - Chief complaint Chief Complaint: Resp - History obtained from History obtained from: Patient, EMS - History of Present Illness Timing - onset: Other (86-year-old gentleman with history of peripheral vascular and coronary disease and CVA with left hemiparesis presents by ambulance for reported dyspnea. He is an unreliable historian and does not know why he is here. Reportedly had low oxygen saturations at home and has been rhonchorous. He does admit to a minimally productive cough but denies chest pain or fevers.) Review of Systems Unable to obtain: Confused PD PAST MEDICAL HISTORY - Past Medical History Cardiovascular: Hypertension, High cholesterol, [place] Neuro: CVA GI: Crohn's disease : Indwelling catheter - Past Surgical History Past Surgical History: Yes General: Bowel surgery, Other Cardiovascular: CABG - Present Medications Home Medications: Ambulatory Orders Medication Instructions Recorded Confirmed Allopurinol 300 mg PO DAILY 08/04/16 05/18/17 Amiodarone [Pacerone] 200 mg PO DAILY 08/04/16 05/18/17 Clopidogrel [Plavix] 75 mg PO DAILY 08/04/16 05/18/17 Atorvastatin Calcium [Lipitor] 80 mg PO QPM 08/06/16 05/18/17 Gabapentin [Neurontin] 100 mg PO TID 08/06/16 05/18/17 Aspirin [Adult Low Dose Aspirin EC] 81 mg PO DAILY 10/04/16 05/18/17 Tamsulosin HCl [Flomax] 1 tab ORAL DAILY 10/29/16 05/18/17 Morphine Sulfate 2.5 mg PO QID PRN 05/18/17 05/18/17 Oxybutynin [Ditropan] 5 mg PO BID 05/18/17 05/18/17 oxyCODONE [Roxicodone] 5 mg PO Q4-6H PRN 05/18/17 05/18/17 - Allergies Allergies/Adverse Reactions: Allergies Allergy/AdvReac Type Severity Reaction Status Date / Time No Known Drug Allergies Allergy Verified 05/18/17 09:27 - Social History Does the pt smoke?: No Smoking Status: Never smoker Does the pt drink ETOH?: No Does the pt have substance abuse?: No - POLST Patient has POLST: Yes PD ED PE NORMAL - Vitals Vital signs reviewed: Yes - General General: Other (Alert and oriented to person only. Does not know why he is here the date. Audible rhonchi at the bedside.) - HEENT HEENT: PERRL, EOMI - Neck Neck: Supple, no meningeal sign, No bony TTP - Cardiac Cardiac: RRR, No murmur - Respiratory Respiratory: Other (Rhonchorous throughout with good air motion) - Abdomen Abdomen: Soft, Non tender - Extremities Extremities: No edema, No calf tenderness / cord, Other (Left hemiparesis, he has boot on the left leg) - Neuro Eye Opening: Spontaneous Verbal: Confused - Psych Psych: Normal mood, Normal affect Results - Vitals Vitals: Vital Signs - 24 hr 05/20/17 05/20/17 14:57 15:45 Temperature 36.6 C Heart Rate 96 95 Respiratory 20 16 Rate Blood Pressure 153/67 H O2 Saturation 99 Oxygen O2 Source [] Room air O2 Source Nasal cannula Oxygen Flow Rate 2 - EKG (time done) 1501 Rate: Rate (enter#) (97) Rhythm: NSR [place]: Normal Intervals: RBBB, Other (short VT) Ischemia: Non specific changes Compare to prior EKG: Unchanged from prior EKG (from 05/18/17) Computer interpretation: Agree with computer - Labs Labs: Laboratory Tests 05/20/17 05/20/17 05/20/17 16:59 16:59 18:34 WBC 10.0 RBC 3.29 L Hgb 10.0 L Hct 32.2 L MCV 97.7 H MCH 30.4 MCHC 31.1 L RDW 15.9 H Plt Count 384 MPV 6.9 L Neut # Not Reportable Lymph # Not Reportable [place] # Not Reportable Eos # Not Reportable Baso # Not Reportable Absolute Nucleated RBC Not Reportable Total Counted 100 Band Neuts % (Manual) 15 H Myelocytes % 1 H Nucleated RBC % Not Reportable Neutrophils # (Manual) 9.0 H Lymphocytes # (Manual) 0.3 L Monocytes # (Manual) 0.6 Differential Comment MANUAL DIFFERENTIAL Manual Slide Review Indicated Platelet Estimate NORMAL (130-450,000) Platelet Morphology NORMAL APPEARANCE RBC Morph Micro Appear NORMAL APPEARANCE Sodium 135 Potassium 3.7 Chloride 103 Carbon Dioxide 20 L Anion Gap 12.0 BUN 29 H Creatinine 1.6 H Estimated GFR (MDRD) 41 L Glucose 169 H Calcium 10.6 H Total Bilirubin 0.5 AST 20 ALT 12 Alkaline Phosphatase 80 Troponin I 0.04 Total Protein 6.8 Albumin 2.5 L Globulin 4.3 H Albumin/Globulin Ratio 0.6 L Lipase 15 L - Rads (name of study) 2v chest Radiology: EMP read contemporaneously (Bibasilar pneumonia with infiltrates) Procedures - General procedure General procedure: He was difficult for IV access, nurses tried and failed. I personally placed a long 22-gauge IV in the right antecubital fossa using real-time ultrasound guidance after ChloraPrep which melisa and flushed well. PD MEDICAL DECISION MAKING - ED course ED course: 86-year-old gentleman with hemiparesis and coronary disease presents with rhonchorous breath sounds and a report of hypoxemia at home. He is found to have bibasilar pneumonia and given his advanced age deserves admission for this diagnosis. He was administered Rocephin and Zithromax and I spoke with Dr. Weinberg for admission at 7:32 PM. Departure - Departure Disposition: 66 [facility] DC/Xfer Clinical Impression: Pneumonia Qualifiers: Pneumonia type: due to unspecified organism Laterality: bilateral Lung location : lower lobe of lung Qualified Code(s): J18.9 - Pneumonia, unspecified organism Condition: Serious
[2017-05-20] MEDS ORDERED: ALBUTEROL NEB 2.5 MG/3 ML INH ONE (15:47)
--- NOTE | 2017-05-20 16:42 | XRAY Preliminary Report ---
Exam: XR CHEST 2 VIEW PA/LAT IMPRESSION: Bilateral pleural effusions and bibasilar pneumonia, atelectasis or dependent edema witho ut significant interval change. [facility] SITE ID: [id number]
--- NOTE | 2017-05-20 16:45 | XRAY Report ---
EXAM: CHEST RADIOGRAPHY EXAM DATE: 05/20/2017 04:20 PM. CLINICAL HISTORY: Dyspnea. COMPARISON: 05/18/2017. TECHNIQUE: 2 views. FINDINGS: Lungs/Pleura: There are bilateral right larger than left pleural effusions. There is bilateral lower lobe consolidation, greatest in the right lower lobe. Upper lung zones are clear. No pneumothorax. Mediastinum: Previous sternotomy noted. Trachea is midline. Other: None. IMPRESSION: Bilateral pleural effusions and bibasilar pneumonia, atelectasis or dependent edema witho ut significant interval change. [facility] Referring Provider Line: [phone] SITE ID: [id number]
[2017-05-20] MEDS ORDERED: cefTRIAXone 2 GM in SODIUM CHLORIDE 0.9% MINIBAG 100 ML IV STA (16:53)
[2017-05-20] MEDS ORDERED: AZITHROMYCIN INJ 500 MG in SODIUM CHLORIDE 0.9% 250 ML IV STA (16:53)
[2017-05-20 17:19] LABS: ALBUMIN/GLOBULIN RATIO 0.6 (1.0-2.2); BILIRUBIN,TOTAL 0.5 mg/dL (0.2-1.0); CALCIUM 10.6 mg/dL (8.5-10.3); CREATININE 1.6 mg/dL (0.6-1.2); POTASSIUM 3.7 mmol/L (3.5-5.0); TOTAL PROTEIN 6.8 g/dL (6.7-8.2)
[2017-05-20] MEDS ORDERED: cefTRIAXone 1 GM VIAL ONE (17:42)
[2017-05-20 18:46] LABS: BASOPHILS % (AUTO) 0.5 %; EOSINOPHILS % (AUTO) 0.2 %; HCT - HEMATOCRIT 32.2 % (42.0-52.0); LYMPHOCYTES % (AUTO) 3.1 %; MEAN CORPUSCULAR HEMOGLOBIN 30.4 pg (27.0-31.0); MEAN CORPUSCULAR HGB CONC 31.1 g/dL (32.0-36.0); MEAN CORPUSCULAR VOLUME 97.7 fL (80.0-94.0); MEAN PLATELET VOLUME 6.9 fL (7.4-11.4); MONOCYTES % (AUTO) 10.4 %; NEUTROPHILS % (AUTO) 85.8 %; RED BLOOD COUNT 3.29 10^6/uL (4.70-6.10); RED CELL DISTRIBUTION WIDTH 15.9 % (12.0-15.0)
[2017-05-20 19:14] LABS: BAND NEUTROPHILS % (MANUAL) 15 %; LYMPHOCYTES % (MANUAL) 3 %; NEUTROPHILS % (MANUAL) 75 %; NP AUTO DIFFERENTIAL? YES; NP MAN DIFFERENTIAL? NO; PLATELET ESTIMATE, MANUAL NORMAL (130-450,000) (NORMAL); PLATELET MORPHOLOGY NORMAL APPEARANCE (NORMAL); TOTAL CELLS COUNTED 100
[2017-05-20] MEDS ORDERED: MORPHINE SOL 10 MG/0.5 ML SYRINGE PO PRN (19:51)
[2017-05-20] MEDS ORDERED: MORPHINE 2 MG/ML SYRINGE IVP PRN (19:54)
[2017-05-20] MEDS ORDERED: ACETAMINOPHEN 325 MG TABLET PO PRN (19:54)
[2017-05-20] MEDS ORDERED: PROCHLORPERAZINE 10 MG/2 ML VIAL IVP PRN (19:54)
[2017-05-20] MEDS ORDERED: SODIUM CHLORIDE FLUSH 0.9% 10 ML SYRINGE IVP PRN (19:54)
[2017-05-20] MEDS ORDERED: ONDANSETRON 4 MG/2 ML VIAL IVP PRN (19:54)
[2017-05-20] MEDS ORDERED: oxyCODONE 5 MG TABLET PO PRN ×2 (19:54)
[2017-05-20] MEDS ORDERED: SODIUM CHLORIDE 0.9% 1,000 ML IV SCH (20:00)
[2017-05-20] MEDS: ATORVASTATIN 40 MG TABLET PO SCH (21:44)
[2017-05-20] MEDS: SODIUM CHLORIDE FLUSH 0.9% 10 ML SYRINGE IVP SCH (21:44)
[2017-05-20] MEDS: GABAPENTIN 100 MG CAPSULE PO SCH (22:05)
[2017-05-20] MEDS: OXYBUTYNIN 5MG TABLET PO SCH (22:05)
--- NOTE | 2017-05-21 02:02 | HISTORY & PHYSICAL EXAMINATION ---
Chief Complaint - Chief Complaint Chief Complaint: Cough and shortness of air History of Present Illness - Admitted From Admitted From:: Emergency department - History Obtained From Records Reviewed: Yes History obtained from: Medical records, patient's caregiver and patient Exam Limitations: Patient is a very poor historian secondary to dementia - History of Present Illness HPI Comment/Other: Patient is an 86-year-old gentleman with a past medical history significant for coronary artery disease status post NSTEMI in January 2016, CKD stage III, atrial fibrillation, CVA with left hemiparesis, [id number] type 2 diabetes, and Crohn's disease with an ileostomy who presented to the emergency department secondary to cough and shortness of air. The patient is a poor historian secondary to dementia but he states that he has been having a cough for about 6 months that is worsened over the last few days. He states that today he began feeling very short of air. The patient denies any fevers or chills. He denies any nausea or vomiting. Denies any recent sick contacts. He denies any sore throat, nasal congestion, headache or wheezing. According to the emergency room records the patient was seen today by a home health care nurse and found to have low oxygen saturation at home. He was also found to have labored breathing and rhonchi therefore it was advised by the home health nurse that the patient be sent to the emergency department. The patient himself does not recall all of this. Patient denies any blurred vision, runny nose, difficulty swallowing, neck pain , chest pain, orthopnea, increased lower extremity swelling, nausea, vomiting, abdominal pain, diarrhea, constipation, urinary urgency, urinary frequency, dysuria, joint pain, joint swelling, muscle aches, back pain, neck stiffness, changes in appetite, recent unintentional weight loss, night sweats or any focal neurologic deficits. On presentation to the emergency department the patient was afebrile, his heart rate was in the 90s and he was slightly hypertensive. The patient was placed on oxygen and saturated well on 2-3 L of oxygen. The patient had rhonchorous breath sounds. Patient's lab work revealed a bandemia of 15% otherwise his creatinine was around his baseline and his calcium was slightly elevated troponin was negative. The patient's BNP was slightly elevated as well. The patient's chest x-ray revealed bilateral pleural effusions and bibasilar pneumonia. The patient was given IV ceftriaxone and azithromycin in the emergency department and admitted to the hospital for community acquired pneumonia. History - Past Medical History Cardiovascular: reports: Hypertension, High cholesterol, Coronary artery disease , Peripheral Vascular Disease, NE, Atrial fibrillation Respiratory: reports: None Neuro: reports: CVA Endocrine/Autoimmune: reports: Type 2 diabetes GI: reports: GERD, Crohn's disease : reports: Indwelling catheter HEENT: reports: None Psych: reports: None Musculoskeletal: reports: Other Derm: reports: Other MRSA Hx?: No Other Past Medical History: 1. Crohn's disease with history of recurrent small bowel obstruction, now with chronic ileostomy. 2. CKD stage IV. 3. Coronary artery disease with an STEMI in January 2016. 4. Peripheral arterial disease with chronic leg ulcers. 5. CVA with left hemiparesis. 6. 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 7. History of obstructive kidney stones in 2016. 8. Benign prostatic hypertrophy. 9. Anemia of chronic disease and iron deficiency. 10. Chronic metabolic acidosis. 11. Chronic atrial fibrillation - Past Surgical History General: reports: Bowel surgery, Other Cardiovascular: reports: CABG - Family & Social History Family History: Mother: , Father: Family History Comment/Other: Patient has dementia and poor memory therefore is unable to recall his family history. Living arrangement: At home Living Situation: With caregiver(s) Social History Notes: The patient was born and raised in [place]. He was and took care of his until she developed Alzheimer's and in the last couple of years although the patient does not remember exactly when. He has a daughter who lives in [place]. He is currently staying with a caregiver at her home. He also has home health and an RN that comes in through home health. She is completely dependent on his ADLs. The patient is usually bedbound and requires 2 person assist and a Kiki lift for transfers. The patient does not smoke tobacco, he does not drink alcohol and does not use any illicit drugs. - POLST Patient has POLST: No POLST Status: Full Code Meds/Allgy - Home Medications Home Medications: Ambulatory Orders Medication Instructions Recorded Confirmed Allopurinol 300 mg PO DAILY 08/04/16 05/18/17 Amiodarone [Pacerone] 200 mg PO DAILY 08/04/16 05/18/17 Clopidogrel [Plavix] 75 mg PO DAILY 08/04/16 05/18/17 Atorvastatin Calcium [Lipitor] 80 mg PO QPM 08/06/16 05/18/17 Gabapentin [Neurontin] 100 mg PO TID 08/06/16 05/18/17 Aspirin [Adult Low Dose Aspirin EC] 81 mg PO DAILY 10/04/16 05/18/17 Tamsulosin HCl [Flomax] 1 tab ORAL DAILY 10/29/16 05/18/17 Morphine Sulfate 2.5 mg PO QID PRN 05/18/17 05/18/17 Oxybutynin [Ditropan] 5 mg PO BID 05/18/17 05/18/17 oxyCODONE [Roxicodone] 5 mg PO Q4-6H PRN 05/18/17 05/18/17 - Allergies Allergies/Adverse Reactions: Allergies Allergy/AdvReac Type Severity Reaction Status Date / Time No Known Drug Allergies Allergy Verified 05/18/17 09:27 Review of Systems - Other Findings Other Findings: A comprehensive review of systems was performed the pertinent positives and negatives are stated above in the HPI and the remainder of the review of systems is negative. Exam - Vital Signs Vital Signs: Vital Signs x48h Temp Pulse Resp BP Pulse Ox 05/21/17 01:00 36.2 C L 84 16 118/53 L 93 05/20/17 20:58 37.1 C 84 22 145/66 H 94 - Physical Exam General Appearance: positive: Alert, Mild distress (Respiratory), Other ( Demented, Tachypneic) Eyes Bilateral: positive: Normal inspection, PERRL, EOMI, No lid inflammation, Conjunctivae nml, No scleral icterus ENT: positive: ENT inspection nml, Pharynx nml, Dry mucous membranes. negative : Purulent nasal drainage, Pharyngeal erythema, Oral lesions Neck: positive: Nml inspection, Thyroid nml, No JVD, Trachea midline. negative : Lymphadenopathy (R), Lymphadenopathy (L), Carotid bruit, Tracheal deviation Respiratory: positive: Chest non-tender, Rales (Bilateral bases), Rhonchi ( Bilaterally in upper and lower lobes), Other (Patient is tachypneic and in mild respiratory distress) Cardiovascular: positive: Regular rate & rhythm, No murmur, No gallop Peripheral Pulses: positive: 2+ Abdomen: positive: Non-tender, No organomegaly, Nml bowel sounds. negative: Guarding, Rebound Back: positive: Nml inspection. negative: CVA tenderness (R), CVA tenderness (L ) Skin: positive: No rash, Dry. negative: Cyanosis, Pallor Extremities: positive: Pedal edema (mild bilaterally), Other (Left upper and lower extremites with increased tone) Neurologic/Psychiatric: positive: CN's nml (2-12), Disoriented to place, Disoriented to time, Weakness (Left sided paresis), Other (Forgetful, dementia) Conclusion/Plan - Problem List (1) CAP (community acquired pneumonia) Conclusion/Plan: Patient presents to the emergency department after he was found to be hypoxic at home by his home health nurse. She also noticed that he had labored breathing and rhonchi. On presentation to the emergency department the patient was hypoxic and appeared to have some respiratory distress. The patient did have significant rhonchi on examination and they were audible without stethoscope. The patient was found to have a bilateral pneumonia on chest x- ray with effusions. The patient was also found to have a bandemia of 15%. Patient was afebrile and vital signs were otherwise stable. Given the patient' s comorbid conditions and poor health status it was felt the patient would benefit from hospitalization and IV antibiotics for 2 or more days. Plan: Place patient on IV ceftriaxone and azithromycin to treat community acquired pneumonia Gently give patient IV fluids Oxygen supplementation Continue to monitor closely Qualifiers: Laterality: unspecified laterality Qualified Code(s): J18.9 - Pneumonia, unspecified organism (2) Diabetes Conclusion/Plan: The patient does have a history of type 2 diabetes. The patient is non-insulin- dependent. It does not appear from the patient's provided home medication list that the patient is on any oral diabetic medications. On presentation to the emergency department the patient's blood glucose is elevated at 169 Plan: Patient will be placed on sliding scale insulin while he is hospitalized Patient will be placed on diabetic diet We will check a hemoglobin A1c We will check patient's blood glucose before meals at bedtime. Qualifiers: Diabetes mellitus type: type 2 (3) Afib Conclusion/Plan: The patient has history of chronic atrial fibrillation. The patient does not appear to be in atrial fibrillation on presentation as he has a regular rate and EKG does not show A. fib. The patient is on amiodarone which may be keeping him in sinus rhythm. Patient's chads 2 score 5 and patient should be on anticoagulation however appears that he is not this may be reasonable given the patient's age and we would not recommend starting him on anticoagulation at this point. Continue patient's home dose of amiodarone Qualifiers: Atrial fibrillation type: chronic Qualified Code(s): I48.2 - Chronic atrial fibrillation (4) CKD (chronic kidney disease), stage III Conclusion/Plan: The patient has CKD stage III and his creatinine on presentation today is 1.6 which is near his normal baseline. The patient does appear slightly dehydrated and will be given some IV fluid while being treated for pneumonia. 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 The patient appears to have anemia of chronic disease secondary to his CKD his hemoglobin is stable at this time. Plan: We will give patient gentle hydration Monitor creatinine Avoid any nephrotoxic agents. (5) History of coronary artery disease Conclusion/Plan: The patient has history of coronary artery disease with an NSTEMI. Patient does not present with any chest pain. On presentation patient does not have any elevation in his troponin or significant EKG changes. Plan: Patient will be continued on treatment with aspirin Lipitor and Plavix. (6) Prophylactic use of low molecular weight heparin for venous thromboembolism Conclusion/Plan: Patient was placed on Lovenox for DVT prophylaxis while he is hospitalized. - Lab Results Lab results reviewed: Yes Fish Bones: 05/20/17 18:34 05/20/17 16:59 Other Lab Results: Laboratory Results WBC 10.0 x10^3/uL (4.8-10.8) 05/20/17 18:34 RBC 3.29 10^6/uL (4.70-6.10) L 05/20/17 18:34 Hgb 10.0 g/dL (14.0-18.0) L 05/20/17 18:34 Hct 32.2 % (42.0-52.0) L 05/20/17 18:34 MCV 97.7 fL (80.0-94.0) H 05/20/17 18:34 MCH 30.4 pg (27.0-31.0) 05/20/17 18:34 MCHC 31.1 g/dL (32.0-36.0) L 05/20/17 18:34 RDW 15.9 % (12.0-15.0) H 05/20/17 18:34 Plt Count 384 10^3/uL (130-450) 05/20/17 18:34 MPV 6.9 fL (7.4-11.4) L 05/20/17 18:34 Neut # Not Reportable 05/20/17 18:34 Lymph # Not Reportable 05/20/17 18:34 [place] # Not Reportable 05/20/17 18:34 Eos # Not Reportable 05/20/17 18:34 Baso # Not Reportable 05/20/17 18:34 Absolute Nucleated RBC Not Reportable 05/20/17 18:34 Total Counted 100 05/20/17 18:34 Band Neuts % (Manual) 15 % (0-10) H 05/20/17 18:34 Myelocytes % 1 % (-0) H 05/20/17 18:34 Nucleated RBC % Not Reportable 05/20/17 18:34 Neutrophils # (Manual) 9.0 10^3/uL (1.5-6.6) H 05/20/17 18:34 Lymphocytes # (Manual) 0.3 10^3/uL (1.5-3.5) L 05/20/17 18:34 Monocytes # (Manual) 0.6 10^3/uL (0.0-1.0) 05/20/17 18:34 Differential Comment MANUAL DIFFERENTIAL 05/20/17 18:34 Manual Slide Review Indicated 05/20/17 18:34 Platelet Estimate NORMAL (130-450,000) (NORMAL) 05/20/17 18:34 Platelet Morphology NORMAL APPEARANCE (NORMAL) 05/20/17 18:34 RBC Morph Micro Appear NORMAL APPEARANCE (NORMAL) 05/20/17 18:34 Sodium 135 mmol/L (135-145) 05/20/17 16:59 Potassium 3.7 mmol/L (3.5-5.0) 05/20/17 16:59 Chloride 103 mmol/L (101-111) 05/20/17 16:59 Carbon Dioxide 20 mmol/L (21-32) L 05/20/17 16:59 Anion Gap 12.0 (6-13) 05/20/17 16:59 BUN 29 mg/dL (6-20) H 05/20/17 16:59 Creatinine 1.6 mg/dL (0.6-1.2) H 05/20/17 16:59 Estimated GFR (MDRD) 41 (>89) L 05/20/17 16:59 Glucose 169 mg/dL (70-100) H 05/20/17 16:59 Calcium 10.6 mg/dL (8.5-10.3) H 05/20/17 16:59 Total Bilirubin 0.5 mg/dL (0.2-1.0) 05/20/17 16:59 AST 20 IU/L (10-42) 05/20/17 16:59 ALT 12 IU/L (10-60) 05/20/17 16:59 Alkaline Phosphatase 80 IU/L (42-121) 05/20/17 16:59 Troponin I 0.04 ng/mL (<0.49) 05/20/17 16:59 B-Natriuretic Peptide 209 pg/mL (5-100) H 05/20/17 18:34 Total Protein 6.8 g/dL (6.7-8.2) 05/20/17 16:59 Albumin 2.5 g/dL (3.2-5.5) L 05/20/17 16:59 Globulin 4.3 g/dL (2.1-4.2) H 05/20/17 16:59 Albumin/Globulin Ratio 0.6 (1.0-2.2) L 05/20/17 16:59 Lipase 15 U/L (22-51) L 05/20/17 16:59 - Diagnostic Imaging Results Diagnostic Imaging Results: positive: Final report reviewed Diagnostic Imaging Results Comments: Chest x-ray Impression: Bilateral pleural effusions and bibasilar pneumonia, atelectasis or dependent edema without significant interval change. - EKG Results EKG Interpreted Independently: Yes EKG Findings: A lot of artifact on the EKG there does not appear to be any obvious ST elevations. Issues/Core Measures - Anticipated LOS Anticipated Stay Length: 2 or more midnights - DVT/VTE - Prophylaxis VTE/DVT Prophylaxis med ordered at admit?: Yes
[2017-05-21] MEDS: SODIUM CHLORIDE FLUSH 0.9% 10 ML SYRINGE IVP SCH ×3 (06:06→21:21)
[2017-05-21] MEDS: GABAPENTIN 100 MG CAPSULE PO SCH ×3 (06:31→21:20)
[2017-05-21 07:02] LABS: BASOPHILS % (AUTO) 0.3 %; EOSINOPHILS % (AUTO) 0.2 %; HCT - HEMATOCRIT 35.2 % (42.0-52.0); HGB - HEMOGLOBIN 11.1 g/dL (14.0-18.0); LYMPHOCYTES % (AUTO) 1.9 %; MEAN CORPUSCULAR HEMOGLOBIN 30.8 pg (27.0-31.0); MEAN CORPUSCULAR HGB CONC 31.6 g/dL (32.0-36.0); MEAN CORPUSCULAR VOLUME 97.3 fL (80.0-94.0); MEAN PLATELET VOLUME 7.3 fL (7.4-11.4); MONOCYTES % (AUTO) 5.8 %; NEUTROPHILS % (AUTO) 91.8 %; RED BLOOD COUNT 3.61 10^6/uL (4.70-6.10); RED CELL DISTRIBUTION WIDTH 16.3 % (12.0-15.0); UNCORRECTED WHITE BLOOD COUNT 15.4 x10^3/uL; WHITE BLOOD COUNT 15.4 x10^3/uL (4.8-10.8)
[2017-05-21 07:08] LABS: CALCIUM 10.6 mg/dL (8.5-10.3); CREATININE 1.5 mg/dL (0.6-1.2); POTASSIUM 3.7 mmol/L (3.5-5.0)
[2017-05-21] MEDS ORDERED: CALAMINE/ZINC OXIDE 118 ML BOTTLE TOP PRN (07:12)
[2017-05-21 07:19] LABS: HEMOGLOBIN A1C 0.52 g/dL
[2017-05-21 07:39] LABS: BAND NEUTROPHILS % (MANUAL) 5 %; LYMPHOCYTES % (MANUAL) 2 %; NEUTROPHILS % (MANUAL) 86 %; NP AUTO DIFFERENTIAL? YES; NP MAN DIFFERENTIAL? NO; PLATELET ESTIMATE, MANUAL NORMAL (130-450,000) (NORMAL); PLATELET MORPHOLOGY NORMAL APPEARANCE (NORMAL); TOTAL CELLS COUNTED 100
[2017-05-21] MEDS: OXYBUTYNIN 5MG TABLET PO SCH ×2 (09:05→21:20)
[2017-05-21] MEDS: SACCHAROMYCES BOULARDII 250 MG CAPSULE PO SCH ×2 (09:05→18:09)
[2017-05-21] MEDS: POLYETHYLENE GLYCOL 3350 17 GM PACKET PO SCH (09:05)
[2017-05-21] MEDS: AMIODARONE 200 MG TABLET PO SCH (09:05)
[2017-05-21] MEDS: CLOPIDOGREL 75 MG TABLET PO SCH (09:05)
[2017-05-21] MEDS: FAMOTIDINE 20 MG TABLET PO SCH (09:05)
[2017-05-21] MEDS: ENOXAPARIN 40 MG/0.4 ML SYRINGE SUBQ SCH (09:06)
[2017-05-21] MEDS: TAMSULOSIN 0.4 MG CAPSULE PO SCH (09:06)
[2017-05-21] MEDS: ASPIRIN EC 81 MG TABLET PO SCH (09:06)
[2017-05-21] MEDS: ALBUTEROL NEB 2.5 MG/3 ML INH PRN (09:11)
[2017-05-21] MEDS: ALLOPURINOL 100 MG TABLET PO SCH (09:26)
[2017-05-21] MEDS: INSULIN ASPART 300 UNIT/3 ML PEN SUBQ SCH ×4 (11:22→21:22)
[2017-05-21] MEDS: CHOLECALCIFEROL 1,000 UNIT TABLET PO SCH (11:25)
[2017-05-21] MEDS: CYANOCOBALAMIN 500 MCG TABLET PO SCH (11:25)
[2017-05-21] MEDS: cefTRIAXone 2 GM in SODIUM CHLORIDE 0.9% MINIBAG 100 ML IV SCH (13:12)
[2017-05-21] MEDS: SODIUM CHLORIDE 0.9% 1,000 ML IV SCH ×2 (13:35→19:00)
[2017-05-21 13:45] LABS: BILIRUBIN,URINE SMALL (NEGATIVE)
[2017-05-21 13:54] LABS: UR CULTURE IF IND INDICATED; WBC,URINE >25 /HPF (0-3)
[2017-05-21] MEDS: AZITHROMYCIN INJ 500 MG in SODIUM CHLORIDE 0.9% 250 ML IV SCH (13:57)
--- NOTE | 2017-05-21 14:47 | PROVIDER PROGRESS NOTE ---
Subjective - Prog Note Date Prog Note Date: 05/21/17 Prog Note Time: 14:31 - Subjective Subjective: This is an elderly gentleman who is described as quite cantankerous and can be quite quick with irritation, and name-calling against his in home providers where he lives. He really hates being in the hospital. He has a long history of an ileostomy secondary to Crohn's disease. 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 In the end they were living in an assisted living facility in [place]. In late 2014 or early 2015 his . In January 2016 he had an end STEMI. Then in March 2016 he was in the hospital for urinary retention with Serratia followed by urethral stenting for stones. He also had vascular stenting of the left leg. He even had to have stones removed out of his bladder because of obstruction causing urinary retention. He had multiple complications including acute respiratory failure with hypoxia, aspiration pneumonia, chronic and postoperative anemia (worsened by hematuria from urinary stent), metabolic encephalopathy, development of a left heel ulcer , left lateral leg ulcer near the leigh, left lateral leg ulcer near the knee. After being discharged from the acute care facility he lived in a longterm facility from June 19, 2016 to July 07, 2016. He ran out of Medicare funds to stay in the longterm facility and did not have the finances to pay for living in . He was brought to [facility] after his discharge from the longterm facility to live with an old family friend. When he was living on the [facility], he used this family to help him take care of his elderly demented . They live down the street. He kept in touch with them all these years and took him in to live with them. He is taking care of by Socorro, the matriarch of the house, and her daughter Angela. Socorro is the main contact who speaks to doctors and daughter Hillary. Angela is more "hands on" with the actual bathing, feeding, etc. Angela describes him as bedbound. The used to use a Kiki lift to get him out of bed into a chair when he first moved in. In the last few months he has refused to even get out of bed. He is a very sharp gentleman mentally. He may have been weak and body but very strong and spirit. When he gets confused and even more belligerent they usually suspect infection. He was hospitalized in July 2016 for UTI and worsening ischemia of his ulcers. Hospitalized October 2016 for UTI, pneumonia with encephalopathy. And now this admission. When I first met this gentleman in July 2016 there were many conversations with his daughter Hillary about possible palliative care or hospice. She is very tearful and resistant about this. That if her father can be brought through this course of illness he can always be better. He has survived so much in the past that he should be able to survive all of these current illnesses. Angela and Socorro on the other hand feel the patient should be with palliative care consultation and then transition to hospice. They have noted a change in him. Subtle but definite deterioration in sharpness and mentation. No longer getting out of bed. This morning he was quite belligerent. Frankly mutinous at the idea of having another IV stuck when he is already had 2 IVs pulled out. I called Hillary, his daughter, and she was able to control him over the phone. Her father-in- law is also visiting and her [id number] was able to help as well. Cajoled him getting the IV as well. So he is getting his IV fluids and IV antibiotics right now. Current Medications - Current Medications Current Medications: Active Medications Acetaminophen (Tylenol) 650 mg PO Q4HR PRN PRN Reason: Pain 1 to 4 Albuterol () 2.5 mg INH Q4HR PRN PRN Reason: Wheezing Last Admin: 05/21/17 09:11 Dose: 2.5 mg Allopurinol (Zyloprim) 100 mg PO DAILY [facility] Last Admin: 05/21/17 09:26 Dose: 100 mg Amiodarone HCl (Pacerone) 200 mg PO DAILY [facility] Last Admin: 05/21/17 09:05 Dose: 200 mg Aspirin (Ecotrin) 81 mg PO DAILY [facility] Last Admin: 05/21/17 09:06 Dose: 81 mg Atorvastatin Calcium (Lipitor) 80 mg PO QPM [facility] Last Admin: 05/20/17 21:44 Dose: 80 mg Calamine (Calamine) 1 applic TOP PRN PRN PRN Reason: ITCHING Cholecalciferol (Vitamin D3) 2,000 unit PO DAILY [facility] Last Admin: 05/21/17 11:25 Dose: 2,000 unit Clopidogrel Bisulfate (Plavix) 75 mg PO DAILY [facility] Last Admin: 11/21/17 09:05 Dose: 75 mg Cyanocobalamin (Vitamin B-12) 500 mcg PO DAILY [facility] Last Admin: 05/21/17 11:25 Dose: 500 mcg Enoxaparin Sodium (Lovenox) 40 mg SUBQ DAILY [facility] Last Admin: 05/21/17 09:06 Dose: 40 mg Famotidine (Pepcid) 20 mg PO DAILY [facility] Last Admin: 05/21/17 09:05 Dose: 20 mg Gabapentin (Neurontin) 100 mg PO TID [facility] Last Admin: 05/21/17 13:57 Dose: 100 mg Azithromycin 500 mg/ Sodium (Chloride) 250 mls @ 250 mls/hr IV DAILY [facility] Last Admin: 05/21/17 13:57 Dose: 250 mls/hr Ceftriaxone Sodium 2 gm/ (Sodium Chloride) 100 mls @ 200 mls/hr IV DAILY [facility] Last Admin: 05/21/17 13:12 Dose: 200 mls/hr Sodium Chloride (Normal Saline 0.9%) 1,000 mls @ 50 mls/hr IV .Q20H [facility] Last Admin: 05/21/17 13:35 Dose: Not Given Insulin Aspart (Novolog) 1 - 5 unit SUBQ 0800,1200,1700,2100 [facility] PRN Reason: Protocol Last Admin: 05/21/17 11:24 Dose: 2 unit Ondansetron HCl (Zofran Inj) 4 mg IVP Q6HR PRN PRN Reason: Nausea / Vomiting Oxybutynin Chloride (Ditropan) 5 mg PO BID [facility] Last Admin: 05/21/17 09:05 Dose: 5 mg Oxycodone HCl (Roxicodone) 5 mg PO Q4HR PRN PRN Reason: Pain 5 to 7 Oxycodone HCl (Roxicodone) 10 mg PO Q4HR PRN PRN Reason: Pain 8 to 10 Polyethylene Glycol (Miralax) 17 gm PO DAILY [facility] Last Admin: 05/21/17 09:05 Dose: 17 gm Prochlorperazine Edisylate (Compazine Inj) 10 mg IVP Q6HR PRN PRN Reason: Nausea / Vomiting Saccharomyces Boulardii (Florastor) 250 mg PO BIDWM [facility] Last Admin: 05/21/17 09:05 Dose: 250 mg Sodium Chloride (Normal Saline Flush 0.9%) 10 ml IVP PRN PRN PRN Reason: NEEDED PER PROVIDER ORDERS Sodium Chloride (Normal Saline Flush 0.9%) 10 ml IVP Q8HR [facility] Last Admin: 05/21/17 13:42 Dose: Not Given Tamsulosin HCl (Flomax) 0.4 mg PO DAILY [facility] Last Admin: 05/21/17 09:06 Dose: 0.4 mg Allopurinol 50 mg PO DAILY 08/04/16 Amiodarone [Pacerone] 200 mg PO DAILY 08/04/16 Clopidogrel [Plavix] 75 mg PO DAILY 08/04/16 Gabapentin [Neurontin] 200 mg PO TID 08/06/16 Aspirin [Adult Low Dose Aspirin EC] 81 mg PO DAILY 10/04/16 Morphine Sulfate 1 mg PO QID PRN 05/18/17 Oxybutynin [Ditropan] 5 mg PO BID 05/18/17 oxyCODONE [Roxicodone] 5 mg PO Q4-6H PRN 05/18/17 Atorvastatin Calcium [Lipitor] 80 mg PO 2100 05/21/17 Cholecalciferol (Vitamin D3) [Vitamin D] 2,000 unit PO DAILY 05/21/17 Ferrous Gluconate 324 mg PO DAILY 05/21/17 Fluticasone Propionate 1 spray NS DAILY PRN 05/21/17 Lidocaine Patch 5% [Lidoderm Patch] 1 each TOP DAILY 05/21/17 Magnesium Oxide 400 mg PO DAILY 05/21/17 Tamsulosin [Flomax] 0.4 mg PO DAILY 05/21/17 Vit B Cmplx 3/FA/Vit C/Biotin [Tricia-Rachele Rx Tablet] 1 each PO DAILY 05/21/17 Objective - Vital Signs/Intake & Output Reviewed Vital Signs: Yes Vital Signs: Vital Signs x48h Temp Pulse Pulse Resp BP Pulse Ox 05/21/17 13:46 36.4 C L 84 16 121/47 L 100 05/21/17 13:38 83 24 05/21/17 09:11 83 20 05/21/17 08:14 36.3 C L 83 16 124/46 L 95 Intake & Output: Intake & Output 05/18/17 05/19/17 05/20/17 05/21/17 23:59 23:59 23:59 23:59 Intake Total 250 340 Output Total 120 270 Balance 130 70 - Objective General Appearance: positive: Alert, Mild distress (from IV's, confusion), Other (slightly stuttering speech in elderly white male who can't even maintain trunk stability and is sliding to the right) Eyes Bilateral: positive: PERRL ENT: positive: Dry mucous membranes Neck: positive: Carotid bruit. negative: Stiff neck Respiratory: positive: Chest non-tender, Rhonchi. negative: Wheezes, Rales Cardiovascular: positive: Regular rate & rhythm, Systolic murmur. negative: Gallop/S4, Friction rub Abdomen: positive: Non-tender, No organomegaly, Nml bowel sounds, No distention Extremities: positive: No pedal edema, Other (left foot is in a boot and nails with onychomycosis right foot has no pulse palpable with capillary refill great toe 6 seconds distal tibial skin on the right has simple bandage cover. he is suppose to get dressing changes Mondays and . Missed his Saturday this week.) Neurologic/Psychiatric: positive: Disoriented to place, Disoriented to time. negative: Motor nml (diffusely weak) - Lab Results Fish Bones: 05/21/17 06:36 05/21/17 06:48 Other Labs: Lab Results x24hrs 05/21/17 05/21/17 05/21/17 Range/Units 13:23 06:48 06:48 WBC (4.8-10.8) x10^3/uL RBC (4.70-6.10) 10^6/uL Hgb (14.0-18.0) g/dL Hct (42.0-52.0) % MCV (80.0-94.0) fL MCH (27.0-31.0) pg MCHC (32.0-36.0) g/dL RDW (12.0-15.0) % Plt Count (130-450) 10^3/uL MPV (7.4-11.4) fL Neut # Lymph # [place] # Eos # Baso # Absolute Nucleated RBC Total Counted Band Neuts % (Manual) (0 - 10) % Nucleated RBC % Neutrophils # (Manual) (1.5-6.6) 10^3/uL Lymphocytes # (Manual) (1.5-3.5) 10^3/uL Monocytes # (Manual) (0.0-1.0) 10^3/uL Differential Comment Manual Slide Review Platelet Estimate (NORMAL) Platelet Morphology (NORMAL) RBC Morph Micro Appear (NORMAL) Sodium (135-145) mmol/L Potassium (3.5-5.0) mmol/L Chloride (101-111) mmol/L Carbon Dioxide (21-32) mmol/L Anion Gap (6-13) BUN (6-20) mg/dL Creatinine (0.6-1.2) mg/dL Estimated GFR (MDRD) (>89) Glucose (70-100) mg/dL Glycated Hemoglobin 6.1 (4.6-6.2) % Estim Average Glucose 128 H (70-100) Calcium (8.5-10.3) mg/dL B-Natriuretic Peptide 158 H (5-100) pg/mL Urine Color LT RED Urine Clarity CLOUDY (CLEAR) Urine pH 6.0 (5.0-7.5) PH Ur Specific [place] 1.025 (1.002-1.030) Urine Protein 100 H (NEGATIVE) mg/dL Urine Glucose (UA) NEGATIVE (NEGATIVE) mg/dL Urine Ketones TRACE (NEGATIVE) mg/dL Urine Occult Blood LARGE H (NEGATIVE) Urine Nitrite NEGATIVE (NEGATIVE) Urine Bilirubin SMALL H (NEGATIVE) Urine Urobilinogen 0.2 (NORMAL) (NORMAL) E.U./dL Ur Leukocyte Esterase MODERATE H (NEGATIVE) Urine RBC TNTC H (0-5) /HPF Urine WBC >25 H (0-3) /HPF Urine WBC Clumps PRESENT Ur Squamous Epith Cells RARE Squamous (<= Few) Urine Bacteria Few (None Seen) /HPF Urine Culture Comments INDICATED 05/21/17 05/21/17 Range/Units 06:48 06:36 WBC 15.4 H (4.8-10.8) x10^3/uL RBC 3.61 L (4.70-6.10) 10^6/uL Hgb 11.1 L (14.0-18.0) g/dL Hct 35.2 L (42.0-52.0) % MCV 97.3 H (80.0-94.0) fL MCH 30.8 (27.0-31.0) pg MCHC 31.6 L (32.0-36.0) g/dL RDW 16.3 H (12.0-15.0) % Plt Count 367 (130-450) 10^3/uL MPV 7.3 L (7.4-11.4) fL Neut # Not Reportable Lymph # Not Reportable [place] # Not Reportable Eos # Not Reportable Baso # Not Reportable Absolute Nucleated RBC Not Reportable Total Counted 100 Band Neuts % (Manual) 5 (0 - 10) % Nucleated RBC % Not Reportable Neutrophils # (Manual) 14.0 H (1.5-6.6) 10^3/uL Lymphocytes # (Manual) 0.3 L (1.5-3.5) 10^3/uL Monocytes # (Manual) 1.1 H (0.0-1.0) 10^3/uL Differential Comment MANUAL DIFFERENTIAL Manual Slide Review Indicated Platelet Estimate NORMAL (130-450,000) (NORMAL) Platelet Morphology NORMAL APPEARANCE (NORMAL) RBC Morph Micro Appear NORMAL APPEARANCE (NORMAL) Sodium 139 (135-145) mmol/L Potassium 3.7 (3.5-5.0) mmol/L Chloride 106 (101-111) mmol/L Carbon Dioxide 20 L (21-32) mmol/L Anion Gap 13.0 (6-13) BUN 26 H (6-20) mg/dL Creatinine 1.5 H (0.6-1.2) mg/dL Estimated GFR (MDRD) 44 L (>89) Glucose 135 H (70-100) mg/dL Glycated Hemoglobin (4.6-6.2) % Estim Average Glucose (70-100) Calcium 10.6 H (8.5-10.3) mg/dL B-Natriuretic Peptide (5-100) pg/mL Urine Color Urine Clarity (CLEAR) Urine pH (5.0-7.5) PH Ur Specific [place] (1.002-1.030) Urine Protein (NEGATIVE) mg/dL Urine Glucose (UA) (NEGATIVE) mg/dL Urine Ketones (NEGATIVE) mg/dL Urine Occult Blood (NEGATIVE) Urine Nitrite (NEGATIVE) Urine Bilirubin (NEGATIVE) Urine Urobilinogen (NORMAL) E.U./dL Ur Leukocyte Esterase (NEGATIVE) Urine RBC (0-5) /HPF Urine WBC (0-3) /HPF Urine WBC Clumps Ur Squamous Epith Cells (<= Few) Urine Bacteria (None Seen) /HPF Urine Culture Comments Assessment/Plan - Problem List (1) CAP (community acquired pneumonia) Impression: Patient presents to the emergency department after he was found to be hypoxic at home by his home health nurse. She also noticed that he had labored breathing and rhonchi. Immunocompromised elderly man who is bedbound. On presentation to the emergency department the patient was hypoxic and appeared to have some respiratory distress. The patient did have significant rhonchi on examination and they were audible without stethoscope. The patient was found to have a bilateral pneumonia on chest x-ray with effusions. The patient was also found to have a bandemia of 15%. Patient was afebrile and vital signs were otherwise stable. Given the patient's comorbid conditions and poor health status it was felt the patient would benefit from hospitalization and IV antibiotics for 2 or more days. Plan: Day #2 ceftriaxone and azithromycin to treat community acquired pneumonia IV fluids to continue New IV put in Oxygen supplementation Continue to monitor closely Qualifiers: Laterality: unspecified laterality Qualified Code(s): J18.9 - Pneumonia, unspecified organism (2) Diabetes Conclusion/Plan: The patient does have a history of type 2 diabetes. The patient is non-insulin- dependent. It does not appear from the patient's provided home medication list that the patient is on any oral diabetic medications. On presentation to the emergency department the patient's blood glucose is elevated at 169 Plan: Patient will be placed on sliding scale insulin while he is hospitalized Patient will be placed on diabetic diet We will check a hemoglobin A1c We will check patient's blood glucose before meals at bedtime. Qualifiers: Diabetes mellitus type: type 2 (3) Afib Conclusion/Plan: The patient has history of chronic atrial fibrillation. The patient does not appear to be in atrial fibrillation on presentation as he has a regular rate and EKG does not show A. fib. The patient is on amiodarone which may be keeping him in sinus rhythm. Patient's chads 2 score 5 and patient should be on anticoagulation however appears that he is not this may be reasonable given the patient's age and we would not recommend starting him on anticoagulation at this point. Continue patient's home dose of amiodarone Qualifiers: Atrial fibrillation type: chronic Qualified Code(s): I48.2 - Chronic atrial fibrillation (4) CKD (chronic kidney disease), stage III Conclusion/Plan: The patient has CKD stage III and his creatinine on presentation today is 1.6 which is near his normal baseline. The patient does appear slightly dehydrated and will be given some IV fluid while being treated for pneumonia. Today creatinine 1.5. 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 The patient appears to have anemia of chronic disease secondary to his CKD his hemoglobin is stable at this time at slightly better today at 11.1 grams. Plan: We will give patient gentle hydration Monitor creatinine Avoid any nephrotoxic agents. (5) History of coronary artery disease Conclusion/Plan: The patient has history of coronary artery disease with an NSTEMI. Patient does not present with any chest pain. On presentation patient does not have any elevation in his troponin or significant EKG changes. Plan: Patient will be continued on treatment with aspirin Lipitor and Plavix. (4) Pneumonia Qualifiers: Qualified Code(s): J18.9 - Pneumonia, unspecified organism (6) UTI (urinary tract infection) due to urinary indwelling catheter Impression: he has a chronic pimentel. If he didn't Angela states his perienal and coccyx skin would suffer. On Rocephin and Azithromycin Day #2 Once he leaves, may change to levaquin in the outpatient setting to treat both UTI and pneumonia. (7) PAD (peripheral artery disease) Impression: with history of legs ulcers and toe osteo. Will need to have nursing remove bandages and document the size and depth. Start wound care here and copy what Home Health does.
[2017-05-21] MEDS: ATORVASTATIN 40 MG TABLET PO SCH (21:21)
[2017-05-22] MEDS: NYSTATIN POWDER 15 GM TOP SCH ×3 (00:53→21:23)
[2017-05-22] MEDS: SODIUM CHLORIDE 0.9% 1,000 ML IV SCH (04:30)
[2017-05-22] MEDS: SODIUM CHLORIDE FLUSH 0.9% 10 ML SYRINGE IVP SCH ×3 (05:00→21:23)
[2017-05-22 05:29] LABS: BASOPHILS % (AUTO) 0.2 %; EOSINOPHILS % (AUTO) 0.1 %; HCT - HEMATOCRIT 29.6 % (42.0-52.0); HGB - HEMOGLOBIN 9.3 g/dL (14.0-18.0); LYMPHOCYTES # (AUTO) 0.4 10^3/uL (1.5-3.5); LYMPHOCYTES % (AUTO) 2.1 %; MEAN CORPUSCULAR HGB CONC 31.6 g/dL (32.0-36.0); MEAN CORPUSCULAR VOLUME 98.1 fL (80.0-94.0); MEAN PLATELET VOLUME 6.9 fL (7.4-11.4); NEUTROPHILS # (AUTO) 18.1 10^3/uL (1.5-6.6); NEUTROPHILS % (AUTO) 92.6 %; RED BLOOD COUNT 3.02 10^6/uL (4.70-6.10); UNCORRECTED WHITE BLOOD COUNT 19.6 x10^3/uL; WHITE BLOOD COUNT 19.6 x10^3/uL (4.8-10.8)
[2017-05-22 05:33] LABS: CALCIUM 10.4 mg/dL (8.5-10.3); CREATININE 1.5 mg/dL (0.6-1.2); POTASSIUM 3.5 mmol/L (3.5-5.0)
[2017-05-22] MEDS: GABAPENTIN 100 MG CAPSULE PO SCH ×3 (05:58→21:23)
[2017-05-22 05:59] LABS: NP AUTO DIFFERENTIAL? NO; NP MAN DIFFERENTIAL? YES; PLATELET ESTIMATE, MANUAL NORMAL (130-450,000) (NORMAL); PLATELET MORPHOLOGY NORMAL APPEARANCE (NORMAL)
--- NOTE | 2017-05-22 08:06 | PROVIDER PROGRESS NOTE ---
Subjective - Prog Note Date Prog Note Date: 05/22/17 Prog Note Time: 08:03 - Subjective Subjective: Socorro, his care provider, called me last night to request palliative care. The last time I spoke to Hillary in July 2016 she was very very resistant to her father going to palliative care much less hospice. Socorro tells me that she and Hillary have spoken numerous times over the last few weeks about Mr. Bogdan castro. Hillary is now willing to consider palliative care with transition to hospice when appropriate. Since being here Mr. Ying has just needed several IVs. But no fever. No respiratory distress. Poor p.o. intake. Oxygen need is stable. Current Medications - Current Medications Current Medications: Active Medications Acetaminophen (Tylenol) 650 mg PO Q4HR PRN PRN Reason: Pain 1 to 4 Albuterol () 2.5 mg INH Q4HR PRN PRN Reason: Wheezing Last Admin: 05/21/17 09:11 Dose: 2.5 mg Allopurinol (Zyloprim) 100 mg PO DAILY [facility] Last Admin: 05/21/17 09:26 Dose: 100 mg Amiodarone HCl (Pacerone) 200 mg PO DAILY [facility] Last Admin: 05/21/17 09:05 Dose: 200 mg Aspirin (Ecotrin) 81 mg PO DAILY [facility] Last Admin: 05/21/17 09:06 Dose: 81 mg Atorvastatin Calcium (Lipitor) 80 mg PO QPM KEIKO Last Admin: 05/21/17 21:21 Dose: 80 mg Calamine (Calamine) 1 applic TOP PRN PRN PRN Reason: ITCHING Cholecalciferol (Vitamin D3) 2,000 unit PO DAILY [facility] Last Admin: 05/21/17 11:25 Dose: 2,000 unit Clopidogrel Bisulfate (Plavix) 75 mg PO DAILY [facility] Last Admin: 05/21/17 09:05 Dose: 75 mg Cyanocobalamin (Vitamin B-12) 500 mcg PO DAILY [facility] Last Admin: 05/21/17 11:25 Dose: 500 mcg Enoxaparin Sodium (Lovenox) 40 mg SUBQ DAILY [facility] Last Admin: 05/21/17 09:06 Dose: 40 mg Famotidine (Pepcid) 20 mg PO DAILY [facility] Last Admin: 05/21/17 09:05 Dose: 20 mg Gabapentin (Neurontin) 100 mg PO TID [facility] Last Admin: 05/22/17 05:58 Dose: 100 mg Azithromycin 500 mg/ Sodium (Chloride) 250 mls @ 250 mls/hr IV DAILY [facility] Last Infusion: 05/21/17 15:56 Dose: Infused Ceftriaxone Sodium 2 gm/ (Sodium Chloride) 100 mls @ 200 mls/hr IV DAILY [facility] Last Infusion: 05/21/17 15:57 Dose: Infused Sodium Chloride (Normal Saline 0.9%) 1,000 mls @ 50 mls/hr IV .Q20H [facility] Last Admin: 05/22/17 04:30 Dose: 50 mls/hr Insulin Aspart (Novolog) 1 - 5 unit SUBQ 0800,1200,1700,2100 [facility] PRN Reason: Protocol Last Admin: 05/21/17 21:22 Dose: 1 unit Nystatin (Nystop) 1 applic TOP BID [facility] Last Admin: 05/22/17 00:53 Dose: 1 applic Ondansetron HCl (Zofran Inj) 4 mg IVP Q6HR PRN PRN Reason: Nausea / Vomiting Oxybutynin Chloride (Ditropan) 5 mg PO BID [facility] Last Admin: 05/21/17 21:20 Dose: 5 mg Oxycodone HCl (Roxicodone) 5 mg PO Q4HR PRN PRN Reason: Pain 5 to 7 Oxycodone HCl (Roxicodone) 10 mg PO Q4HR PRN PRN Reason: Pain 8 to 10 Polyethylene Glycol (Miralax) 17 gm PO DAILY [facility] Last Admin: 05/21/17 09:05 Dose: 17 gm Prochlorperazine Edisylate (Compazine Inj) 10 mg IVP Q6HR PRN PRN Reason: Nausea / Vomiting Saccharomyces Boulardii (Florastor) 250 mg PO BIDWM [facility] Last Admin: 05/21/17 18:09 Dose: 250 mg Sodium Chloride (Normal Saline Flush 0.9%) 10 ml IVP PRN PRN PRN Reason: NEEDED PER PROVIDER ORDERS Sodium Chloride (Normal Saline Flush 0.9%) 10 ml IVP Q8HR [facility] Last Admin: 05/22/17 05:00 Dose: Not Given Tamsulosin HCl (Flomax) 0.4 mg PO DAILY [facility] Last Admin: 05/21/17 09:06 Dose: 0.4 mg Allopurinol 50 mg PO DAILY 08/04/16 Amiodarone [Pacerone] 200 mg PO DAILY 08/04/16 Clopidogrel [Plavix] 75 mg PO DAILY 08/04/16 Gabapentin [Neurontin] 200 mg PO TID 08/06/16 Aspirin [Adult Low Dose Aspirin EC] 81 mg PO DAILY 10/04/16 Morphine Sulfate 1 mg PO QID PRN 05/18/17 Oxybutynin [Ditropan] 5 mg PO BID 05/18/17 oxyCODONE [Roxicodone] 5 mg PO Q4-6H PRN 05/18/17 Atorvastatin Calcium [Lipitor] 80 mg PO 2100 05/21/17 Cholecalciferol (Vitamin D3) [Vitamin D] 2,000 unit PO DAILY 05/21/17 Ferrous Gluconate 324 mg PO DAILY 05/21/17 Fluticasone Propionate 1 spray NS DAILY PRN 05/21/17 Lidocaine Patch 5% [Lidoderm Patch] 1 each TOP DAILY 05/21/17 Magnesium Oxide 400 mg PO DAILY 05/21/17 Tamsulosin [Flomax] 0.4 mg PO DAILY 05/21/17 Vit B Cmplx 3/FA/Vit C/Biotin [Tricia-Rachele Rx Tablet] 1 each PO DAILY 05/21/17 Objective - Vital Signs/Intake & Output Reviewed Vital Signs: Yes Vital Signs: Vital Signs x48h Temp Pulse Pulse Resp BP Pulse Ox 05/22/17 07:40 36.4 C L 73 16 97/76 100 05/22/17 00:10 36.6 C 77 16 121/63 95 Intake & Output: Intake & Output 05/19/17 05/20/17 05/21/17 05/22/17 23:59 23:59 23:59 23:59 Intake Total 250 2090 575 Output Total 120 320 200 Balance 130 1770 375 - Objective General Appearance: positive: No acute distress, Alert, Other (he is eating breakfast and needs help.hands too tremulous and he can' get food on spoon to his mouth.) Eyes Bilateral: positive: PERRL ENT: positive: No signs of dehydration, Other (food and phlegm at back of throat causing a gurgling sound that's not good) Neck: negative: Stiff neck, Carotid bruit Respiratory: positive: Chest non-tender, No respiratory distress, Rhonchi. negative: Wheezes, Rales Cardiovascular: positive: Regular rate & rhythm, Systolic murmur. negative: Gallop/S4, Friction rub Abdomen: positive: Non-tender, No organomegaly, Nml bowel sounds, No distention Skin: positive: Warm, Dry Neurologic/Psychiatric: positive: Disoriented to time, Slurred/abnml speech, Other (cognitive delay, forgetful, can't sit up. uses both hands and arms to slowly arrange food, eat food and drink but needs constant standby assist.). negative: Motor nml - Lab Results Fish Bones: 05/22/17 05:16 05/22/17 05:16 Other Labs: Lab Results x24hrs 05/22/17 05/22/17 05/22/17 Range/Units 07:35 05:16 05:16 WBC (4.8-10.8) x10^3/uL RBC (4.70-6.10) 10^6/uL Hgb (14.0-18.0) g/dL Hct (42.0-52.0) % MCV (80.0-94.0) fL MCH (27.0-31.0) pg MCHC (32.0-36.0) g/dL RDW (12.0-15.0) % Plt Count (130-450) 10^3/uL MPV (7.4-11.4) fL Neut # (1.5-6.6) 10^3/uL Lymph # (1.5-3.5) 10^3/uL [place] # (0.0-1.0) 10^3/uL Eos # (0.0-0.7) 10^3/uL Baso # (0.0-0.1) 10^3/uL Absolute Nucleated RBC x10^3/uL Band Neuts % (Manual) Nucleated RBC % /100WBC Differential Comment Platelet Estimate (NORMAL) Platelet Morphology (NORMAL) RBC Morph Micro Appear (NORMAL) Sodium 138 (135-145) mmol/L Potassium 3.5 (3.5-5.0) mmol/L Chloride 106 (101-111) mmol/L Carbon Dioxide 22 (21-32) mmol/L Anion Gap 10.0 (6-13) BUN 26 H (6-20) mg/dL Creatinine 1.5 H (0.6-1.2) mg/dL Estimated GFR (MDRD) 44 L (>89) Glucose 165 H (70-100) mg/dL POC Whole Bld Glucose 165 H (70 - 100) mg/dL Calcium 10.4 H (8.5-10.3) mg/dL B-Natriuretic Peptide 133 H (5-100) pg/mL Urine Color Urine Clarity (CLEAR) Urine pH (5.0-7.5) PH Ur Specific [place] (1.002-1.030) Urine Protein (NEGATIVE) mg/dL Urine Glucose (UA) (NEGATIVE) mg/dL Urine Ketones (NEGATIVE) mg/dL Urine Occult Blood (NEGATIVE) Urine Nitrite (NEGATIVE) Urine Bilirubin (NEGATIVE) Urine Urobilinogen (NORMAL) E.U./dL Ur Leukocyte Esterase (NEGATIVE) Urine RBC (0-5) /HPF Urine WBC (0-3) /HPF Urine WBC Clumps Ur Squamous Epith Cells (<= Few) Urine Bacteria (None Seen) /HPF Urine Culture Comments 05/22/17 05/21/17 05/21/17 Range/Units 05:16 20:32 16:11 WBC 19.6 H (4.8-10.8) x10^3/uL RBC 3.02 L (4.70-6.10) 10^6/uL Hgb 9.3 L (14.0-18.0) g/dL Hct 29.6 L (42.0-52.0) % MCV 98.1 H (80.0-94.0) fL MCH 31.0 (27.0-31.0) pg MCHC 31.6 L (32.0-36.0) g/dL RDW 16.0 H (12.0-15.0) % Plt Count 302 (130-450) 10^3/uL MPV 6.9 L (7.4-11.4) fL Neut # 18.1 H (1.5-6.6) 10^3/uL Lymph # 0.4 L (1.5-3.5) 10^3/uL [place] # 1.0 (0.0-1.0) 10^3/uL Eos # 0.0 (0.0-0.7) 10^3/uL Baso # 0.0 (0.0-0.1) 10^3/uL Absolute Nucleated RBC 0.00 x10^3/uL Band Neuts % (Manual) Not Reportable Nucleated RBC % 0.0 /100WBC Differential Comment MANUAL=AUTO DIFF Platelet Estimate NORMAL (130-450,000) (NORMAL) Platelet Morphology NORMAL APPEARANCE (NORMAL) RBC Morph Micro Appear NORMAL APPEARANCE (NORMAL) Sodium (135-145) mmol/L Potassium (3.5-5.0) mmol/L Chloride (101-111) mmol/L Carbon Dioxide (21-32) mmol/L Anion Gap (6-13) BUN (6-20) mg/dL Creatinine (0.6-1.2) mg/dL Estimated GFR (MDRD) (>89) Glucose (70-100) mg/dL POC Whole Bld Glucose 178 H 219 H (70 - 100) mg/dL Calcium (8.5-10.3) mg/dL B-Natriuretic Peptide (5-100) pg/mL Urine Color Urine Clarity (CLEAR) Urine pH (5.0-7.5) PH Ur Specific [place] (1.002-1.030) Urine Protein (NEGATIVE) mg/dL Urine Glucose (UA) (NEGATIVE) mg/dL Urine Ketones (NEGATIVE) mg/dL Urine Occult Blood (NEGATIVE) Urine Nitrite (NEGATIVE) Urine Bilirubin (NEGATIVE) Urine Urobilinogen (NORMAL) E.U./dL Ur Leukocyte Esterase (NEGATIVE) Urine RBC (0-5) /HPF Urine WBC (0-3) /HPF Urine WBC Clumps Ur Squamous Epith Cells (<= Few) Urine Bacteria (None Seen) /HPF Urine Culture Comments 05/21/17 05/21/17 05/21/17 Range/Units 13:23 11:15 07:18 WBC (4.8-10.8) x10^3/uL RBC (4.70-6.10) 10^6/uL Hgb (14.0-18.0) g/dL Hct (42.0-52.0) % MCV (80.0-94.0) fL MCH (27.0-31.0) pg MCHC (32.0-36.0) g/dL RDW (12.0-15.0) % Plt Count (130-450) 10^3/uL MPV (7.4-11.4) fL Neut # (1.5-6.6) 10^3/uL Lymph # (1.5-3.5) 10^3/uL [place] # (0.0-1.0) 10^3/uL Eos # (0.0-0.7) 10^3/uL Baso # (0.0-0.1) 10^3/uL Absolute Nucleated RBC x10^3/uL Band Neuts % (Manual) Nucleated RBC % /100WBC Differential Comment Platelet Estimate (NORMAL) Platelet Morphology (NORMAL) RBC Morph Micro Appear (NORMAL) Sodium (135-145) mmol/L Potassium (3.5-5.0) mmol/L Chloride (101-111) mmol/L Carbon Dioxide (21-32) mmol/L Anion Gap (6-13) BUN (6-20) mg/dL Creatinine (0.6-1.2) mg/dL Estimated GFR (MDRD) (>89) Glucose (70-100) mg/dL POC Whole Bld Glucose 194 H 122 H (70 - 100) mg/dL Calcium (8.5-10.3) mg/dL B-Natriuretic Peptide (5-100) pg/mL Urine Color LT RED Urine Clarity CLOUDY (CLEAR) Urine pH 6.0 (5.0-7.5) PH Ur Specific [place] 1.025 (1.002-1.030) Urine Protein 100 H (NEGATIVE) mg/dL Urine Glucose (UA) NEGATIVE (NEGATIVE) mg/dL Urine Ketones TRACE (NEGATIVE) mg/dL Urine Occult Blood LARGE H (NEGATIVE) Urine Nitrite NEGATIVE (NEGATIVE) Urine Bilirubin SMALL H (NEGATIVE) Urine Urobilinogen 0.2 (NORMAL) (NORMAL) E.U./dL Ur Leukocyte Esterase MODERATE H (NEGATIVE) Urine RBC TNTC H (0-5) /HPF Urine WBC >25 H (0-3) /HPF Urine WBC Clumps PRESENT Ur Squamous Epith Cells RARE Squamous (<= Few) Urine Bacteria Few (None Seen) /HPF Urine Culture Comments INDICATED Assessment/Plan - Problem List (1) CAP (community acquired pneumonia) Impression: Patient presents to the emergency department after he was found to be hypoxic at home by his home health nurse. She also noticed that he had labored breathing and rhonchi. Immunocompromised elderly man who is bedbound. On presentation to the emergency department the patient was hypoxic and appeared to have some respiratory distress. The patient did have significant rhonchi on examination and they were audible without stethoscope. The patient was found to have a bilateral pneumonia on chest x-ray with effusions. The patient was also found to have a bandemia of 15%. Patient was afebrile and vital signs were otherwise stable. Given the patient's comorbid conditions and poor health status it was felt the patient would benefit from hospitalization and IV antibiotics for 2 or more days. Plan: Day #3 ceftriaxone and azithromycin to treat community acquired pneumonia IV fluids to continue New IV put in Oxygen supplementation Continue to monitor closely Qualifiers: Laterality: unspecified laterality Qualified Code(s): J18.9 - Pneumonia, unspecified organism (2) Diabetes Conclusion/Plan: The patient does have a history of type 2 diabetes. The patient is non-insulin- dependent. It does not appear from the patient's provided home medication list that the patient is on any oral diabetic medications. On presentation to the emergency department the patient's blood glucose is elevated at 169 05/21/17: he was 194, 219, 178 05/22/17: 165 Plan: Patient will be placed on sliding scale insulin while he is hospitalized Patient will be placed on diabetic diet We will check a hemoglobin A1c We will check patient's blood glucose before meals at bedtime. Qualifiers: Diabetes mellitus type: type 2 (3) Afib Conclusion/Plan: The patient has history of chronic atrial fibrillation. The patient does not appear to be in atrial fibrillation on presentation as he has a regular rate and EKG does not show A. fib. The patient is on amiodarone which may be keeping him in sinus rhythm; his rate in the 70's Patient's chads 2 score 5 and patient should be on anticoagulation however appears that he is not this may be reasonable given the patient's age and we would not recommend starting him on anticoagulation at this point. Continue patient's home dose of amiodarone Qualifiers: Atrial fibrillation type: chronic Qualified Code(s): I48.2 - Chronic atrial fibrillation (4) CKD (chronic kidney disease), stage III Conclusion/Plan: The patient has CKD stage III and his creatinine on presentation today is 1.6 which is near his normal baseline. The patient does appear slightly dehydrated and will be given some IV fluid while being treated for pneumonia. Yesterday's and today's creatinine 1.5. 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 The patient appears to have anemia of chronic disease secondary to his CKD his hemoglobin is stable at this time at slightly better today at 9.3 grams. Plan: We will continue to give patient gentle hydration Monitor creatinine Avoid any nephrotoxic agents. (5) History of coronary artery disease Conclusion/Plan: The patient has history of coronary artery disease with an NSTEMI. Patient does not present with any chest pain. On presentation patient does not have any elevation in his troponin or significant EKG changes. Plan: Patient will be continued on treatment with aspirin Lipitor and Plavix. (4) Pneumonia Qualifiers: Qualified Code(s): J18.9 - Pneumonia, unspecified organism (6) UTI (urinary tract infection) due to urinary indwelling catheter Impression: he has a chronic pimentel. If he didn't Angela states his perienal and coccyx skin would suffer. On Rocephin and Azithromycin Day #3 Once he leaves, may change to levaquin in the outpatient setting to treat both UTI and pneumonia. (7) PAD (peripheral artery disease) Impression: with history of legs ulcers and toe osteo. Will need to have nursing remove bandages and document the size and depth. Start wound care here and copy what Home Health does. 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 Plan is for Palliative care consult in the outpt setting and then transition to Hospice when appropriate. I have already contacted [facility].
[2017-05-22] MEDS: INSULIN ASPART 300 UNIT/3 ML PEN SUBQ SCH ×4 (08:51→21:28)
[2017-05-22] MEDS: AZITHROMYCIN INJ 500 MG in SODIUM CHLORIDE 0.9% 250 ML IV SCH (09:58)
[2017-05-22] MEDS: ENOXAPARIN 40 MG/0.4 ML SYRINGE SUBQ SCH (10:00)
[2017-05-22] MEDS: CYANOCOBALAMIN 500 MCG TABLET PO SCH (10:03)
[2017-05-22] MEDS: ALLOPURINOL 100 MG TABLET PO SCH (10:03)
[2017-05-22] MEDS: CHOLECALCIFEROL 1,000 UNIT TABLET PO SCH (10:03)
[2017-05-22] MEDS: ASPIRIN EC 81 MG TABLET PO SCH (10:04)
[2017-05-22] MEDS: CLOPIDOGREL 75 MG TABLET PO SCH (10:04)
[2017-05-22] MEDS: TAMSULOSIN 0.4 MG CAPSULE PO SCH (10:04)
[2017-05-22] MEDS: AMIODARONE 200 MG TABLET PO SCH (10:04)
[2017-05-22] MEDS: FAMOTIDINE 20 MG TABLET PO SCH (10:04)
[2017-05-22] MEDS: SACCHAROMYCES BOULARDII 250 MG CAPSULE PO SCH ×2 (10:04→17:07)
[2017-05-22] MEDS: OXYBUTYNIN 5MG TABLET PO SCH ×2 (10:04→21:23)
[2017-05-22] MEDS: ALBUTEROL NEB 2.5 MG/3 ML INH PRN (11:01)
[2017-05-22] MEDS: cefTRIAXone 2 GM in SODIUM CHLORIDE 0.9% MINIBAG 100 ML IV SCH (11:38)
[2017-05-22] MEDS: POLYETHYLENE GLYCOL 3350 17 GM PACKET PO SCH (11:39)
[2017-05-22] MEDS: ATORVASTATIN 40 MG TABLET PO SCH (21:23)
[2017-05-23] MEDS: SODIUM CHLORIDE 0.9% 1,000 ML IV SCH (05:08)
[2017-05-23] MEDS: SODIUM CHLORIDE FLUSH 0.9% 10 ML SYRINGE IVP SCH ×3 (05:09→20:34)
[2017-05-23] MEDS: cefTRIAXone 2 GM in SODIUM CHLORIDE 0.9% MINIBAG 100 ML IV SCH (09:20)
[2017-05-23] MEDS: SACCHAROMYCES BOULARDII 250 MG CAPSULE PO SCH ×2 (09:21→16:20)
[2017-05-23] MEDS: INSULIN ASPART 300 UNIT/3 ML PEN SUBQ SCH ×4 (09:21→20:34)
[2017-05-23] MEDS: FAMOTIDINE 20 MG TABLET PO SCH (09:22)
[2017-05-23] MEDS: CLOPIDOGREL 75 MG TABLET PO SCH (09:22)
[2017-05-23] MEDS: ASPIRIN EC 81 MG TABLET PO SCH (09:22)
[2017-05-23] MEDS: NYSTATIN POWDER 15 GM TOP SCH ×2 (09:22→20:34)
[2017-05-23] MEDS: TAMSULOSIN 0.4 MG CAPSULE PO SCH (09:22)
[2017-05-23] MEDS: CHOLECALCIFEROL 1,000 UNIT TABLET PO SCH (09:22)
[2017-05-23] MEDS: AMIODARONE 200 MG TABLET PO SCH (09:22)
[2017-05-23] MEDS: CYANOCOBALAMIN 500 MCG TABLET PO SCH (09:22)
[2017-05-23] MEDS: OXYBUTYNIN 5MG TABLET PO SCH ×2 (09:22→20:31)
[2017-05-23] MEDS: ALLOPURINOL 100 MG TABLET PO SCH (09:23)
[2017-05-23] MEDS: ENOXAPARIN 40 MG/0.4 ML SYRINGE SUBQ SCH (09:23)
[2017-05-23] MEDS: POLYETHYLENE GLYCOL 3350 17 GM PACKET PO SCH (09:23)
[2017-05-23] MEDS: AZITHROMYCIN INJ 500 MG in SODIUM CHLORIDE 0.9% 250 ML IV SCH (10:22)
--- NOTE | 2017-05-23 13:33 | PROVIDER PROGRESS NOTE ---
Subjective - Prog Note Date Prog Note Date: 05/23/17 Prog Note Time: 13:30 - Subjective Subjective: No new complaints from yesterday to today. Nursing feels that he seems to be stable. Continues to have phlegmy cough. Food that sometimes rest in the back of his throat because he does not completely swallow. He declined having his blood drawn today. The tilt wall supervisor will try later this afternoon He thinks he is on a cruise. Wonders when he is in a get out of the [facility] room and get onto [facility] Current Medications - Current Medications Current Medications: Active Medications Acetaminophen (Tylenol) 650 mg PO Q4HR PRN PRN Reason: Pain 1 to 4 Albuterol () 2.5 mg INH Q4HR PRN PRN Reason: Wheezing Last Admin: 05/22/17 11:01 Dose: 2.5 mg Allopurinol (Zyloprim) 100 mg PO DAILY [facility] Last Admin: 05/23/17 09:23 Dose: 100 mg Amiodarone HCl (Pacerone) 200 mg PO DAILY [facility] Last Admin: 05/23/17 09:22 Dose: 200 mg Aspirin (Ecotrin) 81 mg PO DAILY [facility] Last Admin: 05/23/17 09:22 Dose: 81 mg Atorvastatin Calcium (Lipitor) 80 mg PO QPM [facility] Last Admin: 05/22/17 21:23 Dose: 80 mg Calamine (Calamine) 1 applic TOP PRN PRN PRN Reason: ITCHING Cholecalciferol (Vitamin D3) 2,000 unit PO DAILY [facility] Last Admin: 05/23/17 09:22 Dose: 2,000 unit Clopidogrel Bisulfate (Plavix) 75 mg PO DAILY [facility] Last Admin: 05/23/17 09:22 Dose: 75 mg Cyanocobalamin (Vitamin B-12) 500 mcg PO DAILY [facility] Last Admin: 05/23/17 09:22 Dose: 500 mcg Enoxaparin Sodium (Lovenox) 40 mg SUBQ DAILY [facility] Last Admin: 05/23/17 09:23 Dose: 40 mg Famotidine (Pepcid) 20 mg PO DAILY [facility] Last Admin: 05/23/17 09:22 Dose: 20 mg Gabapentin (Neurontin) 100 mg PO TID [facility] Last Admin: 05/22/17 21:23 Dose: 100 mg Azithromycin 500 mg/ Sodium (Chloride) 250 mls @ 250 mls/hr IV DAILY [facility] Last Infusion: 05/23/17 11:25 Dose: Infused Ceftriaxone Sodium 2 gm/ (Sodium Chloride) 100 mls @ 200 mls/hr IV DAILY [facility] Last Infusion: 05/23/17 10:00 Dose: Infused Sodium Chloride (Normal Saline 0.9%) 1,000 mls @ 50 mls/hr IV .Q20H [facility] Last Admin: 05/23/17 05:08 Dose: 50 mls/hr Insulin Aspart (Novolog) 1 - 5 unit SUBQ 0800,1200,1700,2100 [facility] PRN Reason: Protocol Last Admin: 05/23/17 12:57 Dose: 2 unit Insulin Glargine (Lantus Solostar) 5 unit SUBQ QPM [facility] Nystatin (Nystop) 1 applic TOP BID [facility] Last Admin: 05/23/17 09:22 Dose: 1 applic Ondansetron HCl (Zofran Inj) 4 mg IVP Q6HR PRN PRN Reason: Nausea / Vomiting Oxybutynin Chloride (Ditropan) 5 mg PO BID [facility] Last Admin: 05/23/17 09:22 Dose: 5 mg Oxycodone HCl (Roxicodone) 5 mg PO Q4HR PRN PRN Reason: Pain 5 to 7 Oxycodone HCl (Roxicodone) 10 mg PO Q4HR PRN PRN Reason: Pain 8 to 10 Polyethylene Glycol (Miralax) 17 gm PO DAILY [facility] Last Admin: 05/23/17 09:23 Dose: Not Given Prochlorperazine Edisylate (Compazine Inj) 10 mg IVP Q6HR PRN PRN Reason: Nausea / Vomiting Saccharomyces Boulardii (Florastor) 250 mg PO BIDWM [facility] Last Admin: 05/23/17 09:21 Dose: 250 mg Sodium Chloride (Normal Saline Flush 0.9%) 10 ml IVP PRN PRN PRN Reason: NEEDED PER PROVIDER ORDERS Sodium Chloride (Normal Saline Flush 0.9%) 10 ml IVP Q8HR [facility] Last Admin: 05/23/17 05:09 Dose: Not Given Tamsulosin HCl (Flomax) 0.4 mg PO DAILY [facility] Last Admin: 05/23/17 09:22 Dose: 0.4 mg Allopurinol 50 mg PO DAILY 08/04/16 Amiodarone [Pacerone] 200 mg PO DAILY 08/04/16 Clopidogrel [Plavix] 75 mg PO DAILY 08/04/16 Gabapentin [Neurontin] 200 mg PO TID 08/06/16 Aspirin [Adult Low Dose Aspirin EC] 81 mg PO DAILY 10/04/16 Morphine Sulfate 1 mg PO QID PRN 05/18/17 Oxybutynin [Ditropan] 5 mg PO BID 05/18/17 oxyCODONE [Roxicodone] 5 mg PO Q4-6H PRN 05/18/17 Atorvastatin Calcium [Lipitor] 80 mg PO 2100 05/21/17 Cholecalciferol (Vitamin D3) [Vitamin D] 2,000 unit PO DAILY 05/21/17 Ferrous Gluconate 324 mg PO DAILY 05/21/17 Fluticasone Propionate 1 spray NS DAILY PRN 05/21/17 Lidocaine Patch 5% [Lidoderm Patch] 1 each TOP DAILY 05/21/17 Magnesium Oxide 400 mg PO DAILY 05/21/17 Tamsulosin [Flomax] 0.4 mg PO DAILY 05/21/17 Vit B Cmplx 3/FA/Vit C/Biotin [Tricia-Rachele Rx Tablet] 1 each PO DAILY 05/21/17 Objective - Vital Signs/Intake & Output Reviewed Vital Signs: Yes Vital Signs: Vital Signs x48h Temp Pulse Pulse Resp BP Pulse Ox 05/23/17 11:00 83 20 05/23/17 08:19 36.4 C L 85 22 126/69 94 Intake & Output: Intake & Output 05/20/17 05/21/17 05/22/17 05/23/17 23:59 23:59 23:59 23:59 Intake Total 250 2090 1800 1285 Output Total 120 320 775 200 Balance 130 1770 1025 1085 - Objective General Appearance: positive: No acute distress, Alert Eyes Bilateral: positive: PERRL. negative: Conjunctivae nml (Pale and slightly edematous) ENT: positive: Other (Old food in his mouth. Poor dentition. Constant clearing of throat.) Respiratory: positive: Chest non-tender, No respiratory distress (But when he does cough, it is very ineffective and very weak. He does not bring up phlegm) , Rhonchi. negative: Wheezes, Rales Cardiovascular: positive: Regular rate & rhythm, Systolic murmur. negative: Gallop/S4, Friction rub Abdomen: positive: Non-tender, No organomegaly, Nml bowel sounds, No distention Extremities: positive: Pedal edema Neurologic/Psychiatric: positive: Disoriented to person, Disoriented to place, Disoriented to time, Slurred/abnml speech (Because of slowed psychomotor skills) . negative: Motor nml (He is diffusely weak. There does not appear to be a focal hemiplegia. More of a diffuse generalized weakness where he so tired he can even lift his head above the bed. Nursing has to sit him up and prop him up. Once he is upright, he does use his hands to cut his food, and slowly with tremors bring his food into his mouth. By the time he gets to his mouth some of it is fallen. Nursing and aids are helping him eat.) - Lab Results Fish Bones: 05/22/17 05:16 05/22/17 05:16 Other Labs: Lab Results x24hrs 05/23/17 05/23/17 05/22/17 Range/Units : 07:28 20:26 POC Whole Bld Glucose 186 H 145 H 164 H (70 - 100) mg/dL 05/22/17 Range/Units 16:49 POC Whole Bld Glucose 151 H (70 - 100) mg/dL Assessment/Plan - Problem List (1) CAP (community acquired pneumonia) Impression: Patient presents to the emergency department after he was found to be hypoxic at home by his home health nurse. She also noticed that he had labored breathing and rhonchi. Immunocompromised elderly man who is bedbound. On presentation to the emergency department the patient was hypoxic and appeared to have some respiratory distress. The patient did have significant rhonchi on examination and they were audible without stethoscope. The patient was found to have a bilateral pneumonia on chest x-ray with effusions. The patient was also found to have a bandemia of 15%. Patient was afebrile and vital signs were otherwise stable. Given the patient's comorbid conditions and poor health status it was felt the patient would benefit from hospitalization and IV antibiotics for 2 or more days.He has no fever. He is down to 1 L of nasal cannula for his hypoxemia. But white cell count up. Plan: Day #4 ceftriaxone and azithromycin to treat community acquired pneumonia IV fluids to continue New IV put in 05/22 Refusing blood draws today so they will try again after 3 pm Oxygen supplementation Continue to monitor closely Qualifiers: Laterality: unspecified laterality Qualified Code(s): J18.9 - Pneumonia, unspecified organism (2) Diabetes Conclusion/Plan: The patient does have a history of type 2 diabetes. The patient is non-insulin- dependent. It does not appear from the patient's provided home medication list that the patient is on any oral diabetic medications. On presentation to the emergency department the patient's blood glucose is elevated at 169. A1c is 6.1% 05/21/17: he was 194, 219, 178 05/22/17: 165, 238, 151, 164 05/23/17: 145 and 186 Plan: Patient will be placed on sliding scale insulin while he is hospitalized. So far getting 5-6 units a day Patient will be placed on diabetic diet We will check patient's blood glucose before meals at bedtime. When he gets home, maybe 5 units of lantus at night. will try that here before he leaves. Add tonight. Qualifiers: Diabetes mellitus type: type 2 (3) Afib Conclusion/Plan: The patient has history of chronic atrial fibrillation. The patient does not appear to be in atrial fibrillation on presentation as he has a regular rate and EKG does not show A. fib. The patient is on amiodarone which may be keeping him in sinus rhythm; his rate in the 70's Patient's chads 2 score 5 and patient should be on anticoagulation however appears that he is not this may be reasonable given the patient's age and we would not recommend starting him on anticoagulation at this point. Continue patient's home dose of amiodarone Qualifiers: Atrial fibrillation type: chronic Qualified Code(s): I48.2 - Chronic atrial fibrillation (4) CKD (chronic kidney disease), stage III Conclusion/Plan: The patient has CKD stage III and his creatinine on presentation today is 1.6 which is near his normal baseline. The patient does appear slightly dehydrated and will be given some IV fluid while being treated for pneumonia. on 05/21 and 05/22 his creatinine was 1.5. Will look at his labs today once the tilt wall supervisor can get him to give blood. 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 The patient appears to have anemia of chronic disease secondary to his CKD his hemoglobin is stable at this time and slightly better yesterday at 9.3 grams. Plan: We will continue to give patient gentle hydration. He's at 50 cc/hour Monitor creatinine Avoid any nephrotoxic agents. (5) History of coronary artery disease Conclusion/Plan: The patient has history of coronary artery disease with an NSTEMI. Patient does not present with any chest pain. On presentation patient does not have any elevation in his troponin or significant EKG changes. Plan: Patient will be continued on treatment with aspirin Lipitor and Plavix. (6) UTI (urinary tract infection) due to urinary indwelling catheter Impression: he has a chronic pimentel. If he didn't Angela states his perienal and coccyx skin would suffer. On Rocephin and Azithromycin Day #4 Once he leaves, may change to levaquin in the outpatient setting to treat both UTI and pneumonia. Would recommend a total of 10 days (7) PAD (peripheral artery disease) Impression: with history of legs ulcers and toe osteo. Will need to have nursing remove bandages and document the size and depth. Start wound care here and copy what Home Health does. 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 Plan is for Palliative care consult in the outpt setting and then transition to Hospice when appropriate. I have already contacted [facility]. I spoke to both Socorro, in home support provider, and Hillary, his daughter, today and they both are in agreement with this.
[2017-05-23] MEDS: GABAPENTIN 100 MG CAPSULE PO SCH ×2 (15:13→20:31)
[2017-05-23] MEDS: INSULIN GLARGINE 300 UNIT/3 ML PEN SUBQ SCH ×2 (15:14→20:33)
[2017-05-23 15:58] LABS: BASOPHILS % (AUTO) 0.4 %; EOSINOPHILS % (AUTO) 0.3 %; HCT - HEMATOCRIT 31.1 % (42.0-52.0); HGB - HEMOGLOBIN 9.9 g/dL (14.0-18.0); LYMPHOCYTES % (AUTO) 2.2 %; MEAN CORPUSCULAR HEMOGLOBIN 31.1 pg (27.0-31.0); MEAN CORPUSCULAR HGB CONC 31.7 g/dL (32.0-36.0); MEAN CORPUSCULAR VOLUME 98.2 fL (80.0-94.0); MEAN PLATELET VOLUME 6.8 fL (7.4-11.4); MONOCYTES % (AUTO) 5.6 %; NEUTROPHILS % (AUTO) 91.5 %; RED BLOOD COUNT 3.17 10^6/uL (4.70-6.10); RED CELL DISTRIBUTION WIDTH 16.2 % (12.0-15.0); UNCORRECTED WHITE BLOOD COUNT 17.7 x10^3/uL; WHITE BLOOD COUNT 17.7 x10^3/uL (4.8-10.8)
[2017-05-23 16:06] LABS: CREATININE 1.5 mg/dL (0.6-1.2); POTASSIUM 3.5 mmol/L (3.5-5.0)
[2017-05-23 16:20] LABS: BAND NEUTROPHILS % (MANUAL) 4 %; EOSINOPHILS % (MANUAL) 1 %; LYMPHOCYTES % (MANUAL) 4 %; NEUTROPHILS % (MANUAL) 86 %; TOTAL CELLS COUNTED 100
[2017-05-23 16:23] LABS: NP AUTO DIFFERENTIAL? YES; NP MAN DIFFERENTIAL? NO; PLATELET ESTIMATE, MANUAL NORMAL (130-450,000) (NORMAL); PLATELET MORPHOLOGY NORMAL APPEARANCE (NORMAL)
[2017-05-23] MEDS: ATORVASTATIN 40 MG TABLET PO SCH (20:31)
[2017-05-24] MEDS: SODIUM CHLORIDE FLUSH 0.9% 10 ML SYRINGE IVP SCH ×3 (04:30→22:27)
[2017-05-24] MEDS: GABAPENTIN 100 MG CAPSULE PO SCH ×3 (06:30→22:27)
[2017-05-24] MEDS: SODIUM CHLORIDE 0.9% 1,000 ML IV SCH ×2 (06:30→19:33)
[2017-05-24] MEDS: INSULIN ASPART 300 UNIT/3 ML PEN SUBQ SCH ×4 (08:37→22:29)
[2017-05-24] MEDS: cefTRIAXone 2 GM in SODIUM CHLORIDE 0.9% MINIBAG 100 ML IV SCH (09:37)
[2017-05-24] MEDS: ASPIRIN EC 81 MG TABLET PO SCH (09:48)
[2017-05-24] MEDS: CHOLECALCIFEROL 1,000 UNIT TABLET PO SCH (09:48)
[2017-05-24] MEDS: SACCHAROMYCES BOULARDII 250 MG CAPSULE PO SCH ×2 (09:48→17:08)
[2017-05-24] MEDS: OXYBUTYNIN 5MG TABLET PO SCH ×2 (09:48→22:27)
[2017-05-24] MEDS: ALLOPURINOL 100 MG TABLET PO SCH (09:48)
[2017-05-24] MEDS: CLOPIDOGREL 75 MG TABLET PO SCH (09:48)
[2017-05-24] MEDS: TAMSULOSIN 0.4 MG CAPSULE PO SCH (09:48)
[2017-05-24] MEDS: CYANOCOBALAMIN 500 MCG TABLET PO SCH (09:49)
[2017-05-24] MEDS: ENOXAPARIN 40 MG/0.4 ML SYRINGE SUBQ SCH (09:49)
[2017-05-24] MEDS: POLYETHYLENE GLYCOL 3350 17 GM PACKET PO SCH (09:49)
[2017-05-24] MEDS: AMIODARONE 200 MG TABLET PO SCH (09:49)
[2017-05-24] MEDS: NYSTATIN POWDER 15 GM TOP SCH ×2 (09:50→22:29)
[2017-05-24] MEDS: AZITHROMYCIN INJ 500 MG in SODIUM CHLORIDE 0.9% 250 ML IV SCH (10:45)
[2017-05-24] MEDS: FAMOTIDINE 20 MG TABLET PO SCH (10:45)
--- NOTE | 2017-05-24 16:11 | PROVIDER PROGRESS NOTE ---
Assessment/Plan - Problem List (1) CAP (community acquired pneumonia) Qualifiers: Laterality: left Assessment/Plan: No cultures positive. Continue iv antibiotics. Will transition to Levaquin po fat time of DCh (2) Diabetes Assessment/Plan: Glu elevated Remain on DM diet and SS Insulin (3) UTI (urinary tract infection) due to urinary indwelling catheter Assessment/Plan: Continue iv antibiotics. Will transition to po antibiotics at time of DCh. Plan is for 10 days of treatment, total (4) CKD (chronic kidney disease) stage 4, GFR 15-29 ml/min Assessment/Plan: No significant change in creat since admitted. Continue to monitor K, BUN/creat (5) CVA, old, cognitive deficits Assessment/Plan: Pt was seen by Palliative Care, YASMEEN Concepcion who did speak with daughter, who is POA. The pt does have a POLST which states he is a DNR. The daughter is not ready to proceed with Palliative Care or transition to Hospice Care. I will change Code status to DNR. The plan is for further care after DCh at the same living situation he was at prior to admission. (6) History of coronary artery disease Assessment/Plan: No c/o angina. Medical management has been continued. Stable. (7) PAD (peripheral artery disease) Assessment/Plan: Stable. - Current Meds Current Meds: Current Medications Generic Name Dose Route Start Last Admin Trade Name Freq PRN Reason Stop Dose Admin Acetaminophen 650 mg 05/20/17 19:54 05/24/17 15:53 Tylenol PO 650 mg Q4HR PRN Administration Pain 1 to 4 Albuterol 2.5 mg 05/20/17 19:54 05/22/17 11:01 INH 2.5 mg Q4HR PRN Administration Wheezing Allopurinol 100 mg 05/21/17 09:00 05/24/17 09:48 Zyloprim PO 100 mg DAILY [facility] Administration Amiodarone HCl 200 mg 05/21/17 09:00 05/24/17 09:49 Pacerone PO 200 mg DAILY [facility] Administration Aspirin 81 mg 05/21/17 09:00 05/24/17 09:48 Ecotrin PO 81 mg DAILY [facility] Administration Atorvastatin Calcium 80 mg 05/20/17 21:00 05/23/17 20:31 Lipitor PO 80 mg QPM [facility] Administration Cholecalciferol 2,000 unit 05/21/17 11:00 05/24/17 09:48 Vitamin D3 PO 2,000 unit DAILY [facility] Administration Clopidogrel Bisulfate 75 mg 05/21/17 09:00 05/24/17 09:48 Plavix PO 75 mg DAILY [facility] Administration Cyanocobalamin 500 mcg 05/21/17 11:00 05/24/17 09:49 Vitamin B-12 PO 500 mcg DAILY [facility] Administration Enoxaparin Sodium 40 mg 05/21/17 09:00 05/24/17 09:49 Lovenox SUBQ 40 mg DAILY [facility] Administration Famotidine 20 mg 05/21/17 09:00 05/24/17 10:45 Pepcid PO 20 mg DAILY [facility] Administration Gabapentin 100 mg 05/20/17 22:00 05/24/17 15:53 Neurontin PO 100 mg TID [facility] Administration Azithromycin 500 mg/ Sodium 250 mls @ 250 mls/hr 05/21/17 09:00 05/24/17 12: 39 Chloride IV Infused DAILY [facility] Infusion Ceftriaxone Sodium 2 gm/ 100 mls @ 200 mls/hr 05/21/17 09:00 05/24/17 10:44 Sodium Chloride IV Infused DAILY [facility] Infusion Sodium Chloride 1,000 mls @ 50 mls/hr 05/20/17 23:18 05/24/17 06:30 Normal Saline 0.9% IV Not Given .Q20H [facility] Insulin Aspart 1 - 5 unit 05/21/17 08:00 05/24/17 11:53 Novolog SUBQ 1 unit 0800,1200,1700,2100 [facility] Administration Protocol Insulin Glargine 5 unit 05/23/17 14:00 05/23/17 20:33 Lantus Solostar SUBQ 5 unit QPM [facility] Administration Nystatin 1 applic 05/21/17 22:00 05/24/17 09:50 Nystop TOP 1 applic BID [facility] Administration Oxybutynin Chloride 5 mg 05/20/17 21:00 05/24/17 09:48 Ditropan PO 5 mg BID [facility] Administration Polyethylene Glycol 17 gm 05/21/17 09:00 05/24/17 09:49 Miralax PO 17 gm DAILY [facility] Administration Saccharomyces Boulardii 250 mg 05/21/17 08:00 05/24/17 09:48 Florastor PO 250 mg BIDWM [facility] Administration Sodium Chloride 10 ml 05/20/17 22:00 05/24/17 15:50 Normal Saline Flush 0.9% IVP Not Given Q8HR [facility] Tamsulosin HCl 0.4 mg 05/21/17 09:00 05/24/17 09:48 Flomax PO 0.4 mg DAILY [facility] Administration - Lab Result Fish Bone Diagrams: 05/23/17 15:52 05/23/17 15:52 Subjective - Subjective Patient Reports: No Complaints Nursing Reports: Other (Able to feed himself this am) Objective Vital Signs: Vital Signs - 24 hr 05/24/17 05/24/17 05/24/17 00:04 08:23 15:42 Temperature 36.6 C 36.6 C 36.8 C Heart Rate [ 85 87 97 Brachial] Respiratory 24 18 18 Rate Blood Pressure 135/55 H 143/58 H 142/67 H [Right Brachial artery] O2 Saturation 94 95 100 Oxygen O2 Source Room air I&O (Last 24 Hrs): Intake and Output Totals x24h 05/22/17 05/23/17 05/24/17 23:59 23:59 23:59 Intake Total 1800 2125 960 Output Total 775 650 450 Balance 1025 1475 510 General: Other (Sleeping, in no respiratory distress) HEENT: Mucous membr. moist/pink Neck: Supple Neuro: Disoriented (requests to "go to Hospital") Cardiovascular: No murmurs Respiratory: No respiratory distress Abdomen: Soft Extremities: No edema - Results Results: Laboratory Results WBC 17.7 x10^3/uL (4.8-10.8) H 05/23/17 15:52 RBC 3.17 10^6/uL (4.70-6.10) L 05/23/17 15:52 Hgb 9.9 g/dL (14.0-18.0) L 05/23/17 15:52 Hct 31.1 % (42.0-52.0) L 05/23/17 15:52 MCV 98.2 fL (80.0-94.0) H 05/23/17 15:52 MCH 31.1 pg (27.0-31.0) H 05/23/17 15:52 MCHC 31.7 g/dL (32.0-36.0) L 05/23/17 15:52 RDW 16.2 % (12.0-15.0) H 05/23/17 15:52 Plt Count 317 10^3/uL (130-450) 05/23/17 15:52 MPV 6.8 fL (7.4-11.4) L 05/23/17 15:52 Neut # Not Reportable 05/23/17 15:52 Lymph # Not Reportable 05/23/17 15:52 [place] # Not Reportable 05/23/17 15:52 Eos # Not Reportable 05/23/17 15:52 Baso # Not Reportable 05/23/17 15:52 Absolute Nucleated RBC Not Reportable 05/23/17 15:52 Total Counted 100 05/23/17 15:52 Band Neuts % (Manual) 4 % (0-10) 05/23/17 15:52 Myelocytes % 1 % (-0) H 05/23/17 15:52 Nucleated RBC % Not Reportable 05/23/17 15:52 Neutrophils # (Manual) 15.9 10^3/uL (1.5-6.6) H 05/23/17 15:52 Lymphocytes # (Manual) 0.7 10^3/uL (1.5-3.5) L 05/23/17 15:52 Monocytes # (Manual) 0.7 10^3/uL (0.0-1.0) 05/23/17 15:52 Eosinophils # (Manual) 0.2 10^3/uL (0-0.7) 05/23/17 15:52 Differential Comment MANUAL DIFFERENTIAL 05/23/17 15:52 Manual Slide Review Indicated 05/21/17 06:36 Platelet Estimate NORMAL (130-450,000) (NORMAL) 05/23/17 15:52 Platelet Morphology NORMAL APPEARANCE (NORMAL) 05/23/17 15:52 RBC Morph Micro Appear 1+ MACROCYTOSIS (NORMAL) 05/23/17 15:52 Sodium 136 mmol/L (135-145) 05/23/17 15:52 Potassium 3.5 mmol/L (3.5-5.0) 05/23/17 15:52 Chloride 107 mmol/L (101-111) 05/23/17 15:52 Carbon Dioxide 21 mmol/L (21-32) 05/23/17 15:52 Anion Gap 8.0 (6-13) 05/23/17 15:52 BUN 23 mg/dL (6-20) H 05/23/17 15:52 Creatinine 1.5 mg/dL (0.6-1.2) H 05/23/17 15:52 Estimated GFR (MDRD) 44 (>89) L 05/23/17 15:52 Glucose 173 mg/dL (70-100) H 05/23/17 15:52 POC Whole Bld Glucose 146 mg/dL (70 - 100) H 05/24/17 11:25 Glycated Hemoglobin 6.1 % (4.6-6.2) 05/21/17 06:48 Estim Average Glucose 128 (70-100) H 05/21/17 06:48 Calcium 10.0 mg/dL (8.5-10.3) 05/23/17 15:52 Total Bilirubin 0.5 mg/dL (0.2-1.0) 05/20/17 16:59 AST 20 IU/L (10-42) 05/20/17 16:59 ALT 12 IU/L (10-60) 05/20/17 16:59 Alkaline Phosphatase 80 IU/L (42-121) 05/20/17 16:59 Troponin I 0.04 ng/mL (<0.49) 05/20/17 16:59 B-Natriuretic Peptide 133 pg/mL (5-100) H 05/22/17 05:16 Total Protein 6.8 g/dL (6.7-8.2) 05/20/17 16:59 Albumin 2.5 g/dL (3.2-5.5) L 05/20/17 16:59 Globulin 4.3 g/dL (2.1-4.2) H 05/20/17 16:59 Albumin/Globulin Ratio 0.6 (1.0-2.2) L 05/20/17 16:59 Lipase 15 U/L (22-51) L 05/20/17 16:59 Urine Color LT RED 05/21/17 13:23 Urine Clarity CLOUDY (CLEAR) 05/21/17 13:23 Urine pH 6.0 PH (5.0-7.5) 05/21/17 13:23 Ur Specific [place] 1.025 (1.002-1.030) 05/21/17 13:23 Urine Protein 100 mg/dL (NEGATIVE) H 05/21/17 13:23 Urine Glucose (UA) NEGATIVE mg/dL (NEGATIVE) 05/21/17 13:23 Urine Ketones TRACE mg/dL (NEGATIVE) 05/21/17 13:23 Urine Occult Blood LARGE (NEGATIVE) H 05/21/17 13:23 Urine Nitrite NEGATIVE (NEGATIVE) 05/21/17 13:23 Urine Bilirubin SMALL (NEGATIVE) H 05/21/17 13:23 Urine Urobilinogen 0.2 (NORMAL) E.U./dL (NORMAL) 05/21/17 13:23 Ur Leukocyte Esterase MODERATE (NEGATIVE) H 05/21/17 13:23 Urine RBC TNTC /HPF (0-5) H 05/21/17 13:23 Urine WBC >25 /HPF (0-3) H 05/21/17 13:23 Urine WBC Clumps PRESENT 05/21/17 13:23 Ur Squamous Epith Cells RARE Squamous (<= Few) 05/21/17 13:23 Urine Bacteria Few /HPF (None Seen) 05/21/17 13:23 Urine Culture Comments INDICATED 05/21/17 13:23 - Procedures Procedures: Procedures INSERTION OF INFUSION DEV INTO SUP VENA CAVA, PERC APPROACH (08/05/16) TRANSFUSE NONAUT RED BLOOD CELLS IN PERIPH VEIN, PERC (08/05/16)
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
[2017-05-24] MEDS: ATORVASTATIN 40 MG TABLET PO SCH (22:27)
[2017-05-24] MEDS: INSULIN GLARGINE 300 UNIT/3 ML PEN SUBQ SCH (22:28)
[2017-05-25] MEDS: GABAPENTIN 100 MG CAPSULE PO SCH (05:18)
[2017-05-25] MEDS: SODIUM CHLORIDE FLUSH 0.9% 10 ML SYRINGE IVP SCH ×2 (05:23→13:17)
[2017-05-25] MEDS ORDERED: EPINEPHrine 1 MG/ML AMP IVP ONE (06:12)
[2017-05-25] MEDS ORDERED: ATROPINE 0.4 MG/ML VIAL IVP ONE (06:12)
[2017-05-25] MEDS ORDERED: SODIUM CHLORIDE 0.9% 1,000 ML IV ONE ×2 (06:15)
--- NOTE | 2017-05-25 06:21 | PROVIDER PROGRESS NOTE ---
Supervisor Mails Note - Supervisor Mails Note Supervisor Mails Note: MD was called to room at 05:30 by RN. Patient showed agonal breathing and a faint pulse. Patient's blood pressure was 50 systolic and heart rate was in the 30s. Patient's O2 saturations were dropping into the 60s. Patient was patient is DNR but not comfort care. Therefore we began resuscitation without chest compressions. Patient was given bolus of IV fluid. Patient was placed on oxygen mask at 15 L. Patient was given 1 dose of atropine 0.4 mg. Patient was then given 1 mg of epinephrine. With this patient had some response his respiratory rate increased, blood pressure improved to 140/70 and heart rate improved into the upper 90s. Patient was given another liter bolus and transferred to the intensive care unit for a Levophed drip. Labs were drawn and are still pending. Chest x-ray was ordered and is still pending. On EKG patient appeared to have a junctional rhythm with ST depressions in the anterior lateral leads we are awaiting troponin. We will need to discuss further with patient's family as to goals of care and further line of treatment.
[2017-05-25 06:22] LABS: BASOPHILS % (AUTO) 0.4 %; EOSINOPHILS % (AUTO) 0.6 %; LYMPHOCYTES % (AUTO) 4.3 %; MONOCYTES % (AUTO) 7.2 %; NEUTROPHILS % (AUTO) 87.5 %
[2017-05-25 06:31] LABS: ALBUMIN/GLOBULIN RATIO 0.5 (1.0-2.2); BILIRUBIN,TOTAL 0.3 mg/dL (0.2-1.0); BUN - BLOOD UREA NITROGEN 20 mg/dL (6-20); CALCIUM 10.3 mg/dL (8.5-10.3); CARBON DIOXIDE - CO2 19 mmol/L (21-32); CHLORIDE 110 mmol/L (101-111); CREATININE 1.8 mg/dL (0.6-1.2); GFR - MDRD 36 (>89); GLUCOSE 189 mg/dL (70-100); POTASSIUM 3.4 mmol/L (3.5-5.0); SODIUM 141 mmol/L (135-145); TOTAL PROTEIN 5.8 g/dL (6.7-8.2)
[2017-05-25] MEDS ORDERED: DEXTROSE 5% 250 ML IV ONE (06:44)
[2017-05-25 06:46] LABS: MAGNESIUM 1.8 mg/dL (1.7-2.8); PHOSPHORUS 4.3 mg/dL (2.5-4.6)
[2017-05-25 06:53] LABS: HCT - HEMATOCRIT 30.4 % (42.0-52.0); HGB - HEMOGLOBIN 9.2 g/dL (14.0-18.0); MEAN CORPUSCULAR HEMOGLOBIN 30.3 pg (27.0-31.0); MEAN CORPUSCULAR VOLUME 100.8 fL (80.0-94.0); RED BLOOD COUNT 3.02 10^6/uL (4.70-6.10)
[2017-05-25 06:54] LABS: MEAN CORPUSCULAR HGB CONC 30.1 g/dL (32.0-36.0); MEAN PLATELET VOLUME 7.2 fL (7.4-11.4); RED CELL DISTRIBUTION WIDTH 16.2 % (12.0-15.0)
[2017-05-25 07:09] LABS: BAND NEUTROPHILS % (MANUAL) 2 %; LYMPHOCYTES % (MANUAL) 7 %; NEUTROPHILS % (MANUAL) 78 %; NP AUTO DIFFERENTIAL? YES; NP MAN DIFFERENTIAL? NO; PLATELET ESTIMATE, MANUAL NORMAL (130-450,000) (NORMAL); TOTAL CELLS COUNTED 100
[2017-05-25] MEDS ORDERED: PIPERACILLIN/TAZOBACTAM 3.375 GM in SODIUM CHLORIDE 0.9% MINIBAG 100 ML IV SCH ×2 (07:30→10:00)
[2017-05-25] MEDS ORDERED: VANCOMYCIN INJ 1 GM in SODIUM CHLORIDE 0.9% 250 ML IV SCH (08:00)
[2017-05-25] MEDS ORDERED: VANCOMYCIN PER PHARMACY 1 GM in SODIUM CHLORIDE 0.9% 250 ML IV SCH (08:00)
--- NOTE | 2017-05-25 08:18 | XRAY Preliminary Report ---
Exam: XR CHEST 1 VIEW IMPRESSION: Overall similar bibasal opacities suggesting moderate effusions and atelectasis and/or co nsolidation. [facility] SITE ID: [id number]
--- NOTE | 2017-05-25 08:20 | XRAY Report ---
EXAM: CHEST RADIOGRAPHY EXAM DATE: 05/25/2017 07:21 AM. CLINICAL HISTORY: Worsening respiratory failure with hypoxia . COMPARISON: 05/20/2017. TECHNIQUE: 1 view. FINDINGS: Lungs/Pleura: Bibasal opacities suggesting pleural effusions and atelectasis and/or consolidation, ov erall similar. Lung volumes are low. Sternotomy wires. Cardiomegaly. Central pulmonary vascular conge stion. Mediastinum: As above. Other: None. IMPRESSION: Overall similar bibasal opacities suggesting moderate effusions and atelectasis and/or co nsolidation. [facility] Referring Provider Line: [phone] SITE ID: [id number]
[2017-05-25] MEDS ORDERED: EPINEPHrine ABBOJECT 1 MG/10 ML SYRINGE IVP ONE (08:33)
[2017-05-25] MEDS ORDERED: ATROPINE ABBOJECT 1 MG/10 ML SYRINGE IVP ONE (08:33)
[2017-05-25] MEDS: SACCHAROMYCES BOULARDII 250 MG CAPSULE PO SCH (08:37)
[2017-05-25] MEDS: INSULIN ASPART 300 UNIT/3 ML PEN SUBQ SCH ×2 (08:39→12:18)
[2017-05-25] MEDS: AMIODARONE 200 MG TABLET PO SCH (09:12)
[2017-05-25] MEDS: CHOLECALCIFEROL 1,000 UNIT TABLET PO SCH (09:12)
[2017-05-25] MEDS: ALLOPURINOL 100 MG TABLET PO SCH (09:12)
[2017-05-25] MEDS: CYANOCOBALAMIN 500 MCG TABLET PO SCH (09:12)
[2017-05-25] MEDS: ASPIRIN EC 81 MG TABLET PO SCH (09:12)
[2017-05-25] MEDS: CLOPIDOGREL 75 MG TABLET PO SCH (09:12)
[2017-05-25] MEDS: NYSTATIN POWDER 15 GM TOP SCH (09:13)
[2017-05-25] MEDS: POLYETHYLENE GLYCOL 3350 17 GM PACKET PO SCH (09:13)
[2017-05-25] MEDS: OXYBUTYNIN 5MG TABLET PO SCH (09:13)
[2017-05-25] MEDS: FAMOTIDINE 20 MG TABLET PO SCH (09:13)
[2017-05-25] MEDS: TAMSULOSIN 0.4 MG CAPSULE PO SCH (09:14)
[2017-05-25] MEDS: ENOXAPARIN 40 MG/0.4 ML SYRINGE SUBQ SCH (09:16)
[2017-05-25] MEDS: SODIUM CHLORIDE 0.9% 1,000 ML IV SCH (10:33)
[2017-05-25] MEDS ORDERED: MORPHINE 2 MG/ML SYRINGE IVP PRN (12:40)
[2017-05-25] MEDS ORDERED: GLYCOPYRROLATE 1 MG/5 ML VIAL SUBQ PRN (12:40)
[2017-05-25] MEDS ORDERED: HALOPERIDOL 5 MG/ML VIAL IVP PRN (12:40)
[2017-05-25 16:32] VITALS: BP 76/39
--- NOTE | 2017-05-30 08:56 | DISCHARGE SUMMARY ---
DATE OF ADMISSION: 05/20/2017 DATE OF DISCHARGE: 05/25/2017 HOSPITAL COURSE: This is an 86-year-old white male with a history of coronary artery disease, periphe ral vascular disease, stroke with left hemiparesis, chronic kidney disease stage III, paroxysmal atri al fibrillation, insulin-dependent diabetes, Crohn disease with an ileostomy. The patient presented f rom his place of residence, noted by his caregiver to have had a cough that is worsening over several days, noticing that he was very short of breath and low oxygen saturations found by the [facility] are nurse. He was brought to the emergency room and diagnosed with bilateral community-acquired pneum onia, worsening renal failure and altered mental status. HOSPITAL COURSE AND DISCHARGE DIAGNOSES: 1. Septic shock. The patient was begun on antibiotics for empiric coverage of community-acquired pneu monia. He had minimal improvement over approximately 2 days and then worsening respiratory distress, then agonal breathing. With this, he was noted to be bradycardic and hypotensive and he was transferr ed to the ICU where a Levophed drip was started. He was fully cultured. His mental status worsened an d he became more obtunded, only responding to sternal rub. He was able to open his eyes to his name a nd did have some response with facial expressions to his family members. The previous day before his transfer to the ICU, he had a consultation by palliative care CORRECTIONAL AGENCY DIRECTOR, and his DNR status was confirmed, h owever, aggressive medical treatment was still requested. Following his transfer to the ICU, his daug hter as TAMARA, requested that his blood pressure support with Levophed be turned down and that he have comfort measures instituted. This was done and the patient eventually , family was at bedside. 2. Bilateral community-acquired pneumonia. As above. He was unable to produce sputum for a sample to culture. Blood cultures did not grow any species. He did have a MRSA screen that was positive from na ana maria swab. He also had a urine culture that had polymicrobial growth, possibly contaminants. He had be en on empiric antibiotics for community-acquired pneumonia throughout this entire course. 3. Acute kidney injury on top of chronic renal insufficiency. The patient's creatinine at presentatio n was 1.6, which improved minimally to 1.5 and on the day of expiration worsened to 1.8 despite hydra tion and elimination of nephrotoxic compounds. 4. Coronary artery disease. The patient is status post NSTEMI approximately a year ago. He had no com plaints of angina or heart failure during this admission and 2 troponin values were read as not detec table. All of his cardiovascular medications were continued until his hypotension. 5. Peripheral vascular disease. Similar to #4 above. 6. History of stroke with left hemiparesis. Because of this weakness, the patient had difficulty feed ing himself and communicating, the obtundation worsened during his deterioration with septic shock. 7. Crohn disease with ileostomy. The patient was able to take a diet initially and had no abdominal c omplaints. TIME REQUIRED FOR COMPLETION OF THIS DISCHARGE: 45 minutes. JOB #: [id number] EXT JOB #:[id number]
== END 2017-05-25 17:25 | disposition expired | DRG 193 ==
LOC: ED 14:55 → MS2 19:54 → ICU 05-25 06:28
PROVIDERS: ADMIT Internal Medicine; ATTEND Internal Medicine
DX: J18.9 Pneumonia, unspecified organism (principal); A41.9 Sepsis, unspecified organism; R65.21 Severe sepsis with septic shock; I69.954 Hemiplegia and hemiparesis following unspecified cerebrovascular disease affecting left non-dominant side; N17.9 Acute kidney failure, unspecified; E78.00 Pure hypercholesterolemia, unspecified; K50.90 Crohn's disease, unspecified, without complications; L97.909 Non-pressure chronic ulcer of unspecified part of unspecified lower leg with unspecified severity; E87.2 Acidosis; T83.511A Infection and inflammatory reaction due to indwelling urethral catheter, initial encounter; E11.51 Type 2 diabetes mellitus with diabetic peripheral angiopathy without gangrene; E11.622 Type 2 diabetes mellitus with other skin ulcer; I12.9 Hypertensive chronic kidney disease with stage 1 through stage 4 chronic kidney disease, or unspecified chronic kidney disease; E11.22 Type 2 diabetes mellitus with diabetic chronic kidney disease; N18.3 Chronic kidney disease, stage 3 (moderate); I48.2 Chronic atrial fibrillation; E11.40 Type 2 diabetes mellitus with diabetic neuropathy, unspecified; E11.65 Type 2 diabetes mellitus with hyperglycemia; R41.81 Age-related cognitive decline; N40.0 Benign prostatic hyperplasia without lower urinary tract symptoms; D63.8 Anemia in other chronic diseases classified elsewhere; D50.9 Iron deficiency anemia, unspecified; F03.90 Unspecified dementia, unspecified severity, without behavioral disturbance, psychotic disturbance, mood disturbance, and anxiety; Z74.01 Bed confinement status; H54.7 Unspecified visual loss; H91.90 Unspecified hearing loss, unspecified ear; I25.10 Atherosclerotic heart disease of native coronary artery without angina pectoris; Z79.82 Long term (current) use of aspirin; R62.7 Adult failure to thrive; Z79.891 Long term (current) use of opiate analgesic; Z87.442 Personal history of urinary calculi; Z66 Do not resuscitate; Z51.5 Encounter for palliative care; Z95.828 Presence of other vascular implants and grafts; Z79.02 Long term (current) use of antithrombotics/antiplatelets; Z79.899 Other long term (current) drug therapy; Z93.2 Ileostomy status; Z95.1 Presence of aortocoronary bypass graft; I25.2 Old myocardial infarction
CPT/HCPCS: 36415; 71010; 71020; 80048; 80053; 81001; 83036; 83605; 83690; 83735; 83880; 84100; 84484; 85025; 87040; 87086; 87150; 93005; 93306; 94640; 96365; 96367; 99223; 99284; 99285